=== PATIENT | male | born 1960 | race Hispanic/Latino ===

== ENCOUNTER 2016-07-27 13:20 | Inpatient (IN) | payer BC, MEDICAID ==
[2016-07-27 13:26] VITALS: BMI 22.2
[2016-07-27 15:20] LABS: ADD MANUAL DIFF? NO
[2016-07-27] MEDS ORDERED: Piperacill/Tazo 4.5gm in NS 4.5 GM/100 ML BAG IVPB STA (15:31)
--- NOTE | 2016-07-27 15:37 | ED PDOC ---
Arrival/HPI - General Chief Complaint: Abdominal Pain Time Seen by Provider: 07/27/16 14:42 Historian: Patient - History of Present Illness Narrative History of Present Illness (Text): 07/27/16 15:34 55 year old male presents with 1 day duration of right lower quadrant pain. Patient reports chills at home. No nausea or vomiting. No relieving or exacerbating factors. No other complaints. Time/Duration: 24 hours Symptom Onset: Gradual Symptom Course: Unchanged Modifying Factors (Text): None Associated Symptoms (Text): Chills Past Medical History - Provider Review Nursing Documentation Reviewed: Yes - Cardiac Hx Cardiac Disorders: Yes Hx Hypertension: Yes - Pulmonary Hx Respiratory Disorders: No - Neurological Hx Neurological Disorder: No - HEENT Hx HEENT Disorder: No - Renal Hx Renal Disorder: No - Endocrine/Metabolic Hx Endocrine Disorders: No - Hematological/Oncological Hx Blood Disorders: No - Integumentary Hx Dermatological Disorder: No - Musculoskeletal/Rheumatological Hx Musculoskeletal Disorders: No Hx Falls: No - Gastrointestinal Hx Gastrointestinal Disorders: Yes Hx Diverticulitis: Yes Other/Comment: INGUINAL HERNIA - Genitourinary/Gynecological Hx Genitourinary Disorders: No - Psychiatric Hx Psychophysiologic Disorder: Yes Hx Anxiety: Yes Hx Depression: No Hx Emotional Abuse: No Hx Physical Abuse: No Hx Substance Use: No - Surgical History Other/Comment: L INGUINAL HERNIA REPAIR as a child - Anesthesia Hx Anesthesia: Yes - Suicidal Assessment Feels Threatened In Home Enviroment: No Family/Social History - Physician Review Nursing Documentation Reviewed: Yes Family/Social History: Unknown Family HX Smoking Status: Heavy Smoker > 10 Cigarettes Daily Hx Alcohol Use: Yes Frequency of alcohol use: Daily Hx Substance Use: No Hx Substance Use Treatment: No Allergies/Home Meds Allergies/Adverse Reactions: Allergies No Known Allergies Allergy (Verified 07/27/16 13:30) Home Medications: Home Meds Medication Instructions Recorded Confirmed No Known Home Med 07/27/16 07/27/16 Review of Systems - Physician Review All systems were reviewed & negative as marked: Yes Physical Exam - Physical Exam Narrative Physical Exam (Text): - Review of Systems Constitutional: Chills absent: Fatigue, Weight Change, Fevers Eyes: Normal ENT: Normal Respiratory: Normal absent: SOB, Cough, Sputum Cardiovascular: Normal absent: Chest pain, Palpitations, Syncope Gastrointestinal: Right lower quadrant pain absent: Diarrhea, Nausea, Vomiting Genitourinary: Normal. absent: Dysuria, Frequency, Hematuria Musculoskeletal: Normal. absent: Arthralgias, Back Pain, Neck Pain Skin: Normal Neurological: Normal absent: Focal Weakness Endocrine: Normal Hemo/Lymphatic: Normal Psychiatric: Normal - Physical exam Patient appears age appropriate, speaking full sentences without difficulty - Systems Exam Head: Present: Atraumatic, Normocephalic Pupils: Present: PERRL Extraocular Muscles: Present: EOMI Conjunctiva: Present: Normal Mouth: Present: Moist Mucous Membranes Neck: Present: Normal Range of Motion. No: MIDLINE TENDERNESS, Paraspinal Tenderness Respiratory/Chest: Present: Clear to Auscultation, Good Air Exchange. No: Respiratory Distress, Accessory Muscle Use, Tachypneic Cardiovascular: Present: Regular Rate and Rhythm, Normal S1, S2, Peripheral Pulses Present. No: Murmurs Abdomen: Present: Right lower quadrant guarding, rebound tenderness, McBurney's Point Tenderness, Normal Bowel Sounds, No: Peritoneal Signs, Distention Back: Present: Normal Inspection. No: Midline Tenderness, Paraspinal Tenderness Upper Extremity: Present: Normal Inspection. No: Cyanosis, Edema Lower Extremity: Present: Normal Inspection. No: Edema Neurological: Present: GCS=15, Speech Normal, cranial nerves II through XII fully intact with no cerebellar abnormality, neuro-sensory fully intact. No focal neurological deficits. Skin: Present: Warm, Dry, Normal Color. No: Rashes Lymphatic: Present: OX3, NI, NC Psychiatric: Present: Alert, Oriented x 3, Normal Insight, Normal Concentration. Vital Signs Reviewed: Yes Vital Signs Temp Pulse Resp BP Pulse Ox 07/27/16 17:44 69 18 138/74 98 07/27/16 16:11 75 18 142/89 98 07/27/16 13:27 98.9 F 89 16 144/95 H 98 Temperature: Afebrile Blood Pressure: Normal Pulse: Regular Respiratory Rate: Normal Appearance: Positive for: Well-Appearing, Non-Toxic, Comfortable Pain Distress: None Mental Status: Positive for: Alert and Oriented X 3 Medical Decision Making ED Course and Treatment: Impression: 55 year old male presents with 1 day duration of right lower quadrant pain. On physical exam, patient has guarding in the right lower quadrant, rebound tenderness, McBurney's Point tenderness Differential Diagnosis include but are not limited to: Appendicitis vs colitis vs mesenteric adenitis vs hernia Plan: -- CT Abdomen/Pelvis -- Morphine, Zosyn -- IV fluids -- Reassess and disposition Progress Notes: 07/27/16 17:50 CT read as per radiology states cannot exclude appendicitis pt states his surgeon is Dr. Faustin case nyasia Faustin, states he will see pt and asked to call resident nyasia Chavez, states will evaluate pt Dr. Malinda foley, awaiting callback on reeval, pt's pain better after morphine 07/27/16 18:[address] Petty, agrees with admission to her service - Lab Interpretations Lab Results: 07/27/16 14:20 07/27/16 14:20 Lab Results 07/27/16 15:15: Urine Color Yellow, Urine Appearance Clear, Urine pH 6.0, Ur Specific [place] 1.020, Urine Protein Negative, Urine Glucose (UA) Negative, Urine Ketones 40 H, Urine Blood Moderate H, Urine Nitrate Negative, Urine Bilirubin Negative, Urine Urobilinogen 0.2, Ur Leukocyte Esterase Negative, Urine RBC 5 - 10, Urine WBC 0 - 2, Ur Epithelial Cells 0 - 2, Urine Bacteria Few 07/27/16 14:20: Sodium 136, Potassium 4.5, Chloride 99, Carbon Dioxide 27, Anion Gap 15, BUN 11, Creatinine 0.7, Est GFR ( Amer) > 60, Est GFR (Non- Af Amer) > 60, Random Glucose 76, Calcium 9.1, Total Bilirubin 1.2, AST 24, ALT 35, Alkaline Phosphatase 69, Total Protein 7.4, Albumin 4.0, Globulin 3.3, Albumin/Globulin Ratio 1.2, Lipase 70 07/27/16 14:20: WBC 10.4 D, RBC 4.11, Hgb 13.3 L, Hct 38.8 L, MCV 94.4, MCH 32.4, MCHC 34.3, RDW 15.3 H, Plt Count 278, MPV 9.8, Gran % 68.4 H, Lymph % ( Auto) 18.5 L, [place] % (Auto) 9.0 H, Eos % (Auto) 3.8, Baso % (Auto) 0.3, Gran # 7.10 H, Lymph # 1.9, [place] # 0.9 H, Eos # 0.4, Baso # 0.03 - RAD Interpretation Radiology Orders: 07/27/16 15:31 ABD & PELVIS IV CONTRAST ONLY [CT] Stat - Medication Orders Current Medication Orders: Sodium Chloride (Sodium Chloride 0.9%) 1,000 mls @ 100 mls/hr IV .Q10H JOSIE Last Admin: 07/27/16 16:01 Dose: 100 mls/hr Discontinued Medications Piperacillin Sod/Tazobactam Sod (Zosyn 4.5 Gm In Ns 100ml) 4.5 gm in 100 mls @ 200 mls/hr IVPB STAT STA PRN Reason: Protocol Stop: 07/27/16 16:00 Last Admin: 07/27/16 16:01 Dose: 200 mls/hr Iohexol (Omnipaque 350 100 Ml) Confirm Administered Dose 350 mg .ROUTE .STK-MED ONE Stop: 07/27/16 16:28 Morphine Sulfate (Morphine) 6 mg IVP STAT STA Stop: 07/27/16 15:32 Last Admin: 07/27/16 16:00 Dose: 6 mg - Scribe Statement The provider has reviewed the documentation as recorded by the Leonardo Goel Provider Scribe Attestation: All medical record entries made by the Leonardo were at my direction and personally dictated by me. I have reviewed the chart and agree that the record accurately reflects my personal performance of the history, physical exam, medical decision making, and the department course for this patient. I have also personally directed, reviewed, and agree with the discharge instructions and disposition. Disposition/Present on Arrival - Present on Arrival Any Indicators Present on Arrival: No History of DVT/PE: No History of Uncontrolled Diabetes: No Urinary Catheter: No History of Decub. Ulcer: No History Surgical Site Infection Following: None - Disposition Have Diagnosis and Disposition been Completed?: Yes Diagnosis: Abdominal pain Disposition: HOSPITALIZED Disposition Time: 18:17 Patient Plan: Admission Patient Problems: Current Active Problems Problem Status Onset Abdominal pain Acute Condition: FAIR Referrals: Suri Petty MD [Primary Care Provider] - Follow up with primary
[2016-07-27 15:38] LABS: URINE BILIRUBIN NEGATIVE (NEGATIVE); URINE BLOOD MODERATE (NEGATIVE); URINE GLUCOSE (UA) NEGATIVE (NEGATIVE); URINE KETONE 40 mg/dL (NEGATIVE); URINE LEUKOCYTE ESTERASE NEGATIVE Leu/uL (NEGATIVE); URINE PROTEIN NEGATIVE mg/dL (<30 mg/dL); URINE UROBILINOGEN 0.2 E.U./dL (<1 E.U./dL)
[2016-07-27 15:39] LABS: BASO # 0.03 K/mm3 (0.0-2.0); BASO % 0.3 % (0.0-3.0); EOS # 0.4 (0.0-0.7); EOS % 3.8 % (1.5-5.0); GRAN % 68.4 % (50.0-68.0); HEMATOCRIT 38.8 % (42.0-52.0); LYMPH # 1.9 (1.2-3.4); LYMPH % 18.5 % (22.0-35.0); MEAN CELL VOLUME 94.4 fL (80.0-105.0); MEAN CORPUSCULAR HEMOGLOBIN 32.4 pg (25.0-35.0); MEAN CORPUSCULAR HGB CONC 34.3 g/dl (31.0-37.0); MEAN PLATELET VOLUME 9.8 fl (7.0-11.0); MONO # 0.9 (0.1-0.6); PLATELET COUNT 278 10^3/uL (120.0-450.0); RED CELL DISTRIBUTION WIDTH 15.3 % (11.5-14.5); WHITE BLOOD COUNT 10.4 10^3/ul (4.5-11.0)
[2016-07-27 15:42] LABS: URINE COLOR YELLOW (YELLOW)
[2016-07-27] MEDS ORDERED: Sodium Chloride 0.9% 1,000 ML IV SCH (15:45)
[2016-07-27 15:47] LABS: URINE APPEARANCE CLEAR (CLEAR)
[2016-07-27 15:48] LABS: URINE BACTERIA FEW (NEG); URINE EPITHELIAL CELLS 0 - 2 /hpf (0-5); URINE WBC 0 - 2 /hpf (0-6)
[2016-07-27 15:51] LABS: ALB/GLOB RATIO 1.2 (1.1-1.8); ALKALINE PHOSPHATASE 69 U/L (38-133); ALT/SGPT 35 U/L (7-56); AST/SGOT 24 U/L (15-59); BILIRUBIN,TOTAL 1.2 mg/dL (0.2-1.3); BLOOD UREA NITROGEN 11 mg/dL (7-21); CALCIUM 9.1 mg/dL (8.4-10.5); CARBON DIOXIDE 27 mmol/L (21-33); CHLORIDE 99 mmol/L (98-107); GFR AFRICAN-AMERICAN > 60; GLUCOSE,RANDOM 76 mg/dL (70-110); LIPASE 70 U/L (23-300); POTASSIUM 4.5 mmol/L (3.6-5.0); SODIUM 136 mmol/L (132-148); TOTAL PROTEIN 7.4 g/dL (5.8-8.3)
[2016-07-27] MEDS ORDERED: Iohexol 350 MG/100 ML VIAL ONE (16:27)
--- NOTE | 2016-07-27 17:15 | CT ---
PROCEDURE: CT Abdomen and Pelvis with contrast HISTORY: RLQ pain, +McBurney's point tenderness COMPARISON: CT abdomen pelvis with contrast performed 05/01/16 TECHNIQUE: Contrast dose: 100 mL Omnipaque 350 Radiation dose: Total exam DLP = 411.40 mGy-cm. This CT exam was performed using one or more of the following dose reduction techniques: Automated exposure control, adjustment of the mA and/or kV according to patient size, and/or use of iterative reconstruction technique. FINDINGS: LOWER THORAX: No visible consolidation, pleural effusion, or pneumothorax. Small hiatal hernia/distal esophageal wall thickening. LIVER: Region of suspected focal fatty infiltration adjacent to the falciform ligament. GALLBLADDER AND BILE DUCTS: Unremarkable. PANCREAS: Unremarkable. SPLEEN: Unremarkable. ADRENALS: Unremarkable. KIDNEYS AND URETERS: At least 2 too small to characterize left renal hypodensities; possibly cysts. The kidneys enhance symmetrically. No hydronephrosis or obstructing calculus. VASCULATURE: No aortic aneurysm. BOWEL: Stomach is nondistended. Lack of oral contrast limits evaluation for bowel pathology. Bowel loops appear within normal limits of caliber without evidence of obstruction. Extensive inflammatory changes adjacent to the cecum, possibly related to infectious or inflammatory etiologies. Mural thickening of the sigmoid colon re-identified without significant interval change. Correlate clinically for infectious or inflammatory etiologies. No adjacent inflammatory changes evident. Malignant neoplasm must be excluded. Recommend correlation with colonoscopy when clinically feasible. Diverticulosis. APPENDIX: The appendix appears mildly distended measuring approximately 8 mm and contains fluid. Adjacent inflammatory changes appear centered upon the cecum and less so on the appendix. However appendicitis must be excluded. PERITONEUM: No significant free fluid. No definite free air. LYMPH NODES: No bulky adenopathy evident. BLADDER: Unremarkable. REPRODUCTIVE: Unremarkable. BONES: No acute osseous abnormality is detected. . OTHER FINDINGS: Right inguinal hernia containing fluid and fat. IMPRESSION: The appendix appears mildly distended measuring approximately 8 mm and contains fluid. Adjacent inflammatory changes appear centered upon the cecum and less so on the appendix. However acute appendicitis must be excluded. Interval development of extensive inflammatory changes adjacent to the cecum, presumably related to infectious or inflammatory etiologies. Mural thickening of the sigmoid colon re-identified without significant interval change. Correlate clinically for infectious or inflammatory etiologies. No adjacent inflammatory changes evident. Malignant neoplasm must be excluded. Recommend correlation with colonoscopy when clinically feasible. Additional incidental findings as above.
--- NOTE | 2016-07-27 18:27 | CP.PCM.CON ---
History of Present Illness - History of Present Illness History of Present Illness: Gen Surg Consult: Dr Faustin CC: RLQ pain Pt is a 55M w/ PMH of COPD, b/l inguinal hernia's (left repaired at young age, right still present), diverticulitis, and htn. Pt presented today with RLQ pain which started around 2PM. Pain has been 10/10 and relentless. It migrates to the right groin. He denies any associated N/V, fevers or chills. Last BM was this morning, no blood, normal in consistency. He supposedly had some kind of neoplasm as a child but is unaware of where or what it was. Pt reports he has not had a colonoscopy yet. PMH: HTN, COPD, diverticulitis PSH: left inguinal hernia Review of Systems - Review of Systems All systems: reviewed and no additional remarkable complaints except (as per hpi ) Past Patient History - Past Social History Smoking Status: Heavy Smoker > 10 Cigarettes Daily - CARDIAC Hx Cardiac Disorders: Yes Hx Hypertension: Yes - PULMONARY Hx Respiratory Disorders: No - NEUROLOGICAL Hx Neurological Disorder: No - HEENT Hx HEENT Problems: No - RENAL Hx Chronic Kidney Disease: No - ENDOCRINE/METABOLIC Hx Endocrine Disorders: No - HEMATOLOGICAL/ONCOLOGICAL Hx Blood Disorders: No - INTEGUMENTARY Hx Dermatological Problems: No - MUSCULOSKELETAL/RHEUMATOLOGICAL Hx Musculoskeletal Disorders: No Hx Falls: No - GASTROINTESTINAL Hx Gastrointestinal Disorders: Yes Hx Diverticulitis: Yes Other/Comment: INGUINAL HERNIA - GENITOURINARY/GYNECOLOGICAL Hx Genitourinary Disorders: No - PSYCHIATRIC Hx Psychophysiologic Disorder: Yes Hx Anxiety: Yes Hx Depression: No Hx Emotional Abuse: No Hx Physical Abuse: No Hx Substance Use: No - SURGICAL HISTORY Other/Comment: L INGUINAL HERNIA REPAIR as a child - ANESTHESIA Hx Anesthesia: Yes Meds Allergies/Adverse Reactions: Allergies Allergy/AdvReac Type Severity Reaction Status Date / Time No Known Allergies Allergy Verified 07/27/16 13:30 - Medications Medications: Current Medications Sodium Chloride (Sodium Chloride 0.9%) 1,000 mls @ 100 mls/hr IV .Q10H JOSIE Last Admin: 07/27/16 16:01 Dose: 100 mls/hr Physical Exam - Constitutional Appears: Non-toxic, No Acute Distress - Head Exam Head Exam: NORMOCEPHALIC - Eye Exam Eye Exam: Normal appearance - Respiratory Exam Respiratory Exam: absent: Accessory Muscle Use, Respiratory Distress - GI/Abdominal Exam GI & Abdominal Exam: Hernia (right inguinal - not currently reducible due to tenderness), Soft, Tenderness (RLQ as well as tender right inguinal hernia). absent: Distended, Firm, Rebound, Rigid Additional comments: - psoas - rovsings - Rectal Exam Rectal Exam: absent: Deferred - Extremities Exam Extremities exam: Negative for: pedal edema - Neurological Exam Neurological exam: Alert, Oriented x3 - Psychiatric Exam Psychiatric exam: Normal Affect, Normal Mood - Skin Skin Exam: Normal Color, Warm Results - Vital Signs Recent Vital Signs: Last Vital Signs Temp 98.9 F 07/27/16 13:27 Pulse 69 07/27/16 17:44 Resp 18 07/27/16 17:44 BP 138/74 07/27/16 17:44 Pulse Ox 98 07/27/16 17:44 - Labs Result Diagrams: 07/27/16 14:20 07/27/16 14:20 Labs: Laboratory Results - last 24 hr 07/27/16 07/27/16 07/27/16 14:20 14:20 15:15 WBC 10.4 D RBC 4.11 Hgb 13.3 L Hct 38.8 L MCV 94.4 MCH 32.4 MCHC 34.3 RDW 15.3 H Plt Count 278 MPV 9.8 Gran % 68.4 H Lymph % (Auto) 18.5 L [place] % (Auto) 9.0 H Eos % (Auto) 3.8 Baso % (Auto) 0.3 Gran # 7.10 H Lymph # 1.9 [place] # 0.9 H Eos # 0.4 Baso # 0.03 Sodium 136 Potassium 4.5 Chloride 99 Carbon Dioxide 27 Anion Gap 15 BUN 11 Creatinine 0.7 Est GFR ( Amer) > 60 Est GFR (Non-Af Amer) > 60 Random Glucose 76 Calcium 9.1 Total Bilirubin 1.2 AST 24 ALT 35 Alkaline Phosphatase 69 Total Protein 7.4 Albumin 4.0 Globulin 3.3 Albumin/Globulin Ratio 1.2 Lipase 70 Urine Color Yellow Urine Appearance Clear Urine pH 6.0 Ur Specific [place] 1.020 Urine Protein Negative Urine Glucose (UA) Negative Urine Ketones 40 H Urine Blood Moderate H Urine Nitrate Negative Urine Bilirubin Negative Urine Urobilinogen 0.2 Ur Leukocyte Esterase Negative Urine RBC 5 - 10 Urine WBC 0 - 2 Ur Epithelial Cells 0 - 2 Urine Bacteria Few Assessment & Plan - Assessment and Plan (Free Text) Assessment: 55M with right inguinal hernia and appendicitis Plan: IV fluids analgesia anti-emetics abx plan for OR tomorrow early AM d/w Dr Ramin Munoz DO, PGY2 - Date & Time Date: 07/27/16 Time: 18:35
[2016-07-27] MEDS: Lactated Ringer's 1,000 ML IV SCH (18:40)
[2016-07-27] MEDS ORDERED: Ciprofloxacin 400mg/200ml D5W 400 MG/200 ML BAG IVPB SCH (19:00)
[2016-07-27] MEDS: Ciprofloxacin 400mg/200ml D5W 400 MG/200 ML BAG IVPB SCH (19:40)
[2016-07-27] MEDS: HYDROmorphone 0.5 mg/0.5 ml ISec IVP PRN ×2 (20:21→23:21)
[2016-07-27 21:18] LABS: INR 1.03 (0.93-1.08); PARTIAL THROMBOPLASTIN TIME 34.1 Seconds (23.7-30.8)
[2016-07-27] MEDS: metroNIDAZOLE IV 500 mg/100 ml 500 MG/100 ML BAG IV SCH (22:08)
[2016-07-28] MEDS: metroNIDAZOLE IV 500 mg/100 ml 500 MG/100 ML BAG IV SCH (05:51)
[2016-07-28] MEDS: HYDROmorphone 0.5 mg/0.5 ml ISec IVP PRN ×2 (06:09→19:55)
[2016-07-28 07:05] LABS: ADD MANUAL DIFF? NO
[2016-07-28 07:17] LABS: BASO # 0.04 K/mm3 (0.0-2.0); BASO % 0.5 % (0.0-3.0); EOS # 0.5 (0.0-0.7); EOS % 5.9 % (1.5-5.0); GRAN # 5.34 (1.4-6.5); GRAN % 66.6 % (50.0-68.0); HEMATOCRIT 37.3 % (42.0-52.0); LYMPH # 1.6 (1.2-3.4); LYMPH % 19.4 % (22.0-35.0); MEAN CELL VOLUME 94.7 fL (80.0-105.0); MEAN CORPUSCULAR HEMOGLOBIN 31.7 pg (25.0-35.0); MEAN CORPUSCULAR HGB CONC 33.5 g/dl (31.0-37.0); MEAN PLATELET VOLUME 9.2 fl (7.0-11.0); MONO # 0.6 (0.1-0.6); MONO % 7.6 % (1.0-6.0); PLATELET COUNT 259 10^3/uL (120.0-450.0); RED CELL DISTRIBUTION WIDTH 15.1 % (11.5-14.5)
[2016-07-28 07:19] LABS: ALB/GLOB RATIO 1.3 (1.1-1.8); ALKALINE PHOSPHATASE 62 U/L (38-133); ALT/SGPT 35 U/L (7-56); AST/SGOT 22 U/L (15-59); BILIRUBIN,TOTAL 0.7 mg/dL (0.2-1.3); BLOOD UREA NITROGEN 10 mg/dL (7-21); CALCIUM 8.5 mg/dL (8.4-10.5); CARBON DIOXIDE 24 mmol/L (21-33); CHLORIDE 104 mmol/L (95-110); GFR AFRICAN-AMERICAN > 60; GLUCOSE,RANDOM 63 mg/dL (70-110); POTASSIUM 3.9 mmol/L (3.6-5.0); SODIUM 139 mmol/L (132-148); TOTAL PROTEIN 6.3 g/dL (5.8-8.3)
[2016-07-28] MEDS: Ciprofloxacin 400mg/200ml D5W 400 MG/200 ML BAG IVPB SCH (08:07)
[2016-07-28] MEDS: Lactated Ringer's 1,000 ML IV SCH ×2 (08:08→13:08)
--- NOTE | 2016-07-28 08:48 | RAD ---
HISTORY: pre-op COMPARISON: 05/01/2016 FINDINGS: LUNGS: No active pulmonary disease. PLEURA: No significant pleural effusion identified, no pneumothorax apparent. CARDIOVASCULAR: Normal. OSSEOUS STRUCTURES: No significant abnormalities. VISUALIZED UPPER ABDOMEN: Normal. OTHER FINDINGS: None. IMPRESSION: No active disease.
[2016-07-28] MEDS ORDERED: Bupivacaine 0.5% Inj(30mL) ONE (08:53)
[2016-07-28] MEDS ORDERED: Midazolam 2 MG/2 ML VIAL ONE (11:30)
[2016-07-28] MEDS ORDERED: Succinylcholine 200 mg/10 ml Inj IV ONE (11:30)
[2016-07-28] MEDS ORDERED: Propofol 10 mg/ml Inj (20 ML) ONE ×2 (11:30→11:44)
[2016-07-28] MEDS ORDERED: Rocuronium 10 mg/ml (5 ml) ONE (11:30)
[2016-07-28] MEDS ORDERED: Desflurane Inhalation Anesthetic Liq (240 ml) ONE (11:50)
[2016-07-28] MEDS ORDERED: Glycopyrrolate 0.2 mg/ml (2ml vial) ONE (12:33)
[2016-07-28] MEDS ORDERED: Morphine 4 mg/ml ISec ONE (12:36)
[2016-07-28] MEDS ORDERED: Neostigmine Methylsulfate 3mg/3ml Syringe IV ONE (12:36)
[2016-07-28] MEDS ORDERED: HYDROmorphone 0.5 mg/0.5 ml ISec IVP PRN (12:53)
[2016-07-28] MEDS ORDERED: HYDROmorphone 0.5 mg/0.5 ml ISec ONE ×3 (13:07→13:49)
[2016-07-28] MEDS ORDERED: Morphine 4 mg/ml ISec IVP PRN (13:11)
[2016-07-28] MEDS ORDERED: Oxycodone/Acetaminophen 5/325 mg Tab PO PRN (13:11)
--- NOTE | 2016-07-28 13:12 | PCM.SURG1 ---
Surgeon's Initial Post Op Note - Surgeon's Notes Surgeon: Dr. Faustin Food Preservation Scientist: Dr. Li PGY3, Dr. Nash PGY2, Dr. Chavez PGY1 Type of Anesthesia: General Endo Pre-Operative Diagnosis: appendicitis Operative Findings: see dictation Post-Operative Diagnosis: enlarged appendix Operation Performed: laparoscopic appendectomy Specimen/Specimens Removed: appendix Estimated Blood Loss: EBL {In ML}: 10 Post-Op Condition: Good Date of Surgery/Procedure: 07/28/16 Time of Surgery/Procedure: 11:30
--- NOTE | 2016-07-28 17:31 | CON ---
DATE: 07/28/2016 The patient in room 368, bed 1. REASON FOR CONSULTATION: Abdominal pain, possible appendicitis, needs surgery, cardiac evaluation. HISTORY OF PRESENT ILLNESS: A 55-year-old male who is known to have Hypertension and inguinal hernia had a sudden onset of pain in the right lower quadrant with chills at home for about one day duration. The patient denies any chest pain, shortness of breath, or palpitation. The patient clinical diagnosis is appendicitis and the patient underwent surgery this morning. The patient denies any chest pain, shortness of breath, or palpitation. The patient is lying flat in bed without any cardiac symptoms. PAST MEDICAL HISTORY: Positive for inguinal hernia, was told to have Hypertension. PERSONAL HISTORY: He smokes 1 pack a day and drinks beer. FAMILY HISTORY: Not significant. HOME MEDICATIONS: He says that he does not take any medication at present. REVIEW OF SYSTEMS: All the systems were reviewed, only positives mentioned in the history, others were negative. PHYSICAL EXAMINATION: VITAL SIGNS: Blood pressure 128/74, respirations 18, pulse 70, temperature 97.9. HEENT: Head is normocephalic. Eyes: Pupils normal. Conjunctivae are slightly pale. NECK: JVP low. Carotids equal. THORAX: AP diameter normal. The patient had appendectomy this morning. LUNGS: Clear. CARDIOVASCULAR: S1, S2. ABDOMEN: Soft. As mentioned before, the patient had appendectomy this morning. EXTREMITIES: No clubbing, no cyanosis. LABORATORY DATA: WBC 8.0, hemoglobin 12.5, hematocrit 37.3, platelets 259. Sodium 139, potassium 3.9, BUN 15, creatinine 0.7. AST, ALT normal. Total protein and albumin normal. Chest x-ray, no active disease. Abdominal and pelvic scan suggestive of acute appendicitis, also mural thickening of the sigmoid colon with significant interval change from the previous, and a malignant neoplasm must be excluded on these changes. EKG has not been done. CARDIAC WORKUP: The patient had a stress test on 05/05/2016, which was negative with LV ejection fraction of 68%. Echo was done on 05/02/2016 that showed normal systolic function of LV, normal size LV, ejection fraction 55%-60%, trace aortic regurgitation, trace to mild mitral regurg. DIAGNOSES: Abdominal pain, appendicitis, status post appendectomy, history of Hypertension alcohol and tobacco abuse. PLAN: Clinically, the patient's cardiac status is stable at this point. The patient has been put on lisinopril 20 mg b.i.d., also Zosyn antibiotic 4.5 grams stat dose was given. The patient is getting IV fluid. Told patient to stop smoking and drinking Beer. We will continue present therapy and we will follow with you. Emory Chau MD cc: [id number] TT: 07/28/2016 17:30:37 Confirmation # [id number] Dictation # [id number] zoran KNIGHT
--- NOTE | 2016-07-28 19:47 | HP ---
CHIEF COMPLAINT: Abdominal pain. HISTORY OF PRESENT ILLNESS: The patient is a 55-year-old male, well known to me from previous admissions, had 1 day duration of right lower quadrant abdominal pain. The patient actually went to Dr. Medina's office for GI followup. Dr. Medina called me and sent the patient to the Emergency Room. The patient reports chills at home. No nausea or vomiting. No alleviating or aggravating factors and no other complaints. No headache, no dizziness. PAST MEDICAL HISTORY: Hypertension, diverticulitis, anxiety, left inguinal hernia repair as a child. FAMILY HISTORY: Father and mother noncontributory. HABITS: Heavy smoking, more than 10 cigarettes a day. Alcohol use yes, alcohol use daily. Substance abuse no. ALLERGIES: The patient is not allergic to any medications. HOME MEDICATIONS: Reviewed by me. REVIEW OF SYSTEMS: The patient is examined on the bedside. Sister was standing at the bedside also. Complaining about pain in the right lower quadrant, is intractable. According to him morphine was giving him itchiness. I ordered Dilaudid. No fever, no chills. No headache, no dizziness. PHYSICAL EXAMINATION: VITAL SIGNS: Temperature 97.9, pulse 72, blood pressure 134/91, respiratory rate 18. HEENT: Head normocephalic, atraumatic. Eyes: PERRLA. Extraocular muscles intact. Conjunctivae clear. Nose patent. Mucous membranes moist. NECK: Supple. No carotid bruit, JVD or thyromegaly. CHEST: Bilaterally symmetrical. HEART: S1, S2 positive. LUNGS: Clear to auscultation. ABDOMEN: Soft. Bowel sounds positive. No organomegaly but the stomach is tender, especially in the right lower quadrant. EXTREMITIES: No edema, no cyanosis. NEUROLOGIC: Awake, alert. Moving all 4 extremities. No focal deficits. LABORATORY DATA: White blood cells noted , hemoglobin 12.5, hematocrit 37.3, and platelets 259. Sodium 139, potassium 3.9, BUN 10, creatinine 0.7, random glucose 63. Urine has ketones and moderate blood. ASSESSMENT AND PLAN: The patient is a 55-year-old male with ketonuria, hematuria, anemia, who came with abdominal pain. CAT scan of the abdomen and pelvis were done. Appendix appears mildly distended measuring approximately 8 mm. Diagnosis of appendicitis. Surgical consult called. The patient went for appendectomy today. He met with Dr. Chau, Super[employer], for cardiac clearance. He has a history of hypertension, alcohol and tobacco abuse. The patient is getting morphine for pain. According to him the morphine is giving him itchiness. Now I discontinued the morphine and started on Dilaudid. GI prophylaxis, continue hydration and pain management. Surgical team is on the case. Will followup. Suri Petty MD cc: [id number] TT: 07/28/2016 19:47:03 franky KNIGHT
[2016-07-29] MEDS: HYDROmorphone 0.5 mg/0.5 ml ISec IVP PRN (04:46)
[2016-07-29 05:09] LABS: URINE BILIRUBIN NEGATIVE (NEGATIVE); URINE BLOOD SMALL (NEGATIVE); URINE GLUCOSE (UA) NEGATIVE (NEGATIVE); URINE KETONE >=80 mg/dL (NEGATIVE); URINE LEUKOCYTE ESTERASE NEGATIVE Leu/uL (NEGATIVE); URINE PROTEIN NEGATIVE mg/dL (<30 mg/dL); URINE UROBILINOGEN 0.2 E.U./dL (<1 E.U./dL)
[2016-07-29 05:14] LABS: URINE APPEARANCE CLEAR (CLEAR); URINE COLOR YELLOW (YELLOW)
[2016-07-29 05:27] LABS: URINE BACTERIA MOD (NEG); URINE EPITHELIAL CELLS 0 - 2 /hpf (0-5)
--- NOTE | 2016-07-29 08:48 | CP.PCM.PN ---
Subjective - Date & Time of Evaluation Date of Evaluation: 07/29/16 Time of Evaluation: 07:15 - Subjective Subjective: General Surgery Dr. Faustin Pt S&E @bedside. pt had lap appy yesterday. there were no complications and pt tolerated the procedure well. NAEO. pt c/o abd pain from his hernia which began after coughing. pt states his intestines are twisted in his abd because his hernia was reduced. denies N/V. tolerating CLD. Objective - Vital Signs/Intake and Output Vital Signs (last 24 hours): Temp Pulse Resp BP Pulse Ox 97.9 F 72 20 134/91 H 98 07/28/16 16:00 07/28/16 17:13 07/28/16 16:00 07/28/16 17:13 07/28/16 16:00 Intake and Output: 07/29/16 07/29/16 06:59 18:59 Intake Total 660 Output Total 600 Balance 60 - Medications Medications: Current Medications Hydromorphone HCl (Dilaudid) 0.5 mg IVP Q6H PRN PRN Reason: Pain, severe (8-10) Last Admin: 07/29/16 04:46 Dose: 0.5 mg Lactated Ringer's (Lactated Ringer's) 1,000 mls @ 125 mls/hr IV .Q8H [facility] Last Admin: 07/28/16 13:08 Dose: Not Given Lisinopril (Zestril) 20 mg PO BID [facility] Last Admin: 07/28/16 17:13 Dose: 20 mg Ondansetron HCl (Zofran Inj) 4 mg IVP ONCE PRN PRN Reason: Nausea/Vomiting Oxycodone/Acetaminophen (Percocet 5/325 Mg Tab) 1 tab PO Q4H PRN PRN Reason: Pain, moderate (4-7) Stop: 07/31/16 13:12 - Labs Labs: 07/28/16 06:45 07/28/16 06:45 PT 11.1 Seconds (9.9-11.8) 07/27/16 21:05 INR 1.03 (0.93-1.08) 07/27/16 21:05 APTT 34.1 Seconds (23.7-30.8) H 07/27/16 21:05 - Constitutional Appears: Non-toxic, No Acute Distress - Head Exam Head Exam: NORMAL INSPECTION - Eye Exam Eye Exam: Normal appearance - ENT Exam ENT Exam: Mucous Membranes Moist - Respiratory Exam Respiratory Exam: NORMAL BREATHING PATTERN. absent: Accessory Muscle Use, Respiratory Distress - Cardiovascular Exam Cardiovascular Exam: absent: Bradycardia, Tachycardia - GI/Abdominal Exam GI & Abdominal Exam: Distended (minimal ), Guarding (voluntary), Soft, Tenderness (TTP RLQ). absent: Rebound Additional comments: incisions well approximated, c/d/i - Neurological Exam Neurological Exam: Alert, Awake, Oriented x3 - Psychiatric Exam Psychiatric exam: Normal Affect, Normal Mood - Skin Skin Exam: Dry, Intact, Normal Color, Warm Assessment and Plan - Assessment and Plan (Free Text) Assessment: 55 y/o M POD#1 s/p lap appy - advance diet as tolerated - pain management - cleared for discharge pending diet tolerance w/ f/u in 1-2wks - july shower Pt discussed w/ Dr. Ramin Chavez DO PGY1
--- NOTE | 2016-07-29 09:12 | CON ---
DATE: 07/28/2016 This patient was seen and evaluated earlier today. Discussed with Dr. Faustin. The patient was scheduled for the OR. This 55-year-old patient was hospitalized in the past with acute diverticulitis and also inguinal hernia, symptomatic, discharged to go home, had a followup colonoscopy done recently about 3 weeks ago, found to have large polypoid lesions in the left colon with multiple diverticula ____. These are the large flat polyps within the folds. Biopsies revealed serrated adenoma. The patient was advised at that time to see a surgeon for left colon resection. The patient was seen in the office yesterday with complaints of off and on abdominal pain, mainly on the right side. Acute onset started the previous night. Pain was progressively increasing. The patient was earlier seen in the office, found to have significant tenderness in the right lower quadrant area, suspect include possible appendicitis. The patient was referred to the Emergency Room. The patient was sent to the ER. The patient had significant tenderness, sent to the ER. No history of similar episode of pain before. PAST MEDICAL HISTORY: Significant for ____ symptoms, ____ anxiety, hypertension , left inguinal hernia repair. FAMILY HISTORY: Noncontributory. SOCIAL HISTORY: Positive for smoking. No alcohol socially. ALLERGIES: There are no known drug allergies. REVIEW OF SYSTEMS: Positive as above. Other systems reviewed. Negative PHYSICAL EXAMINATION: GENERAL: The patient is lying on the bed, not in acute distress. VITAL SIGNS: Afebrile. Blood pressure is 128/74, pulse 70, respirations 18, O2 saturation 98%. HEENT: Atraumatic, anicteric. NECK: Supple. HEART: S1, S2 heard. LUNGS: Bilateral air entry present. ABDOMEN: Soft. There was tenderness present in the right lower quadrant area. No rebound or guarding. EXTREMITIES: No cyanosis, no clubbing. NEUROLOGIC: Alert, oriented. Moves all the extremities. LABORATORY DATA: 12.5, hematocrit 37.3, WBC 6.0, platelets 259. Chemistry is essentially unremarkable. IMPRESSION/PLAN: This 55-year-old patient had a history of diverticulitis before, had a recent colonoscopy that showed large polypoid lesions in the left colon, sigmoid. The patient was suspected of serrated adenoma. Biopsies were serrated adenoma, due to have surgery done, admitted now with right lower quadrant pain. Differential diagnosis should include diverticulitis, colitis. Laboratory data, CT scan was reviewed and discussed with Dr. Faustin. Impression is ____, rule out appendicitis, diverticulosis, large polypoid lesions. The patient would benefit from laparoscopic evaluation and also possible appendectomy. The patient would electively need a left colon resection. This was discussed with the patient. Thank you very much for allowing us to participate in the care of the patient. Arminda Medina MD cc: [id number] TT: 07/29/2016 09:11:51 Confirmation # [id number] Dictation # [id number] david KNIGHT
--- NOTE | 2016-07-29 09:57 | CARD ---
APPROVED REPORT EKG Measurement Heart [id number] <Conclusion> Normal sinus rhythm Moderate voltage criteria for LVH, may be normal variant No change
[2016-07-29] MEDS ORDERED: HYDROmorphone 0.5 mg/0.5 ml ISec IVP PRN (15:19)
--- NOTE | 2016-07-29 16:42 | PN ---
DATE: 07/29/2016 SUBJECTIVE: The patient was seen and examined on the bedside, still complaining about abdominal pain. As per patient, he felt gas, but no bowel movement, walked, did physical therapy, sister was sitting on the bedside. No nausea, vomiting. No chest pain, no palpitation, no fever, no chills, no headache, no dizziness. PHYSICAL EXAMINATION: VITAL SIGNS: Temperature 97.9, pulse 72, blood pressure 134/91, respiratory rate 20. HEENT: Head normocephalic, atraumatic. Eyes: PERRLA. Extraocular movements intact. Conjunctivae clear. Nose patent. NECK: Supple. No carotid bruit, JVD or thyromegaly. CHEST: Symmetrical. HEART: S1, S2 positive. LUNGS: Clear to auscultation. ABDOMEN: Soft. Bowel sounds present. No organomegaly, but tender at surgical site. Surgical site looks healthy, but tender to touch. EXTREMITIES: No edema, no cyanosis. NEUROLOGIC: The patient is awake, alert, follows simple commands. MEDICATIONS: Dilaudid, lactate ringer, Percocet, Zestril, Zofran. LABORATORY DATA: White blood cells 8.0, hemoglobin 12.5, hematocrit 37.3, and platelets 259. potassium 3.9, BUN 10, creatinine 0.7, random glucose 53. ASSESSMENT AND PLAN: The patient is a 55-year-old male with anemia, hematuria. Went for cholecystectomy by Dr. Eyad Faustin, postoperative day #2. The patient tolerated procedure very well. Abdominal pain from his hernia which began after coughing is still there. The patient states his intestines are twisted in the abdomen because his hernia was reduced. Denies any nausea, vomiting. Tolerating a clear liquid very well. Advance diet as tolerated. Pain management. Physical therapy. Gastrointestinal and deep venous thrombosis prophylaxis. We will follow up. Suri Petty MD cc: [id number] TT: 07/29/2016 16:41:12 Confirmation # [id number] Dictation # [id number] jn MTDD
[2016-07-29] MEDS: Tiotropium 18 mcg Cap For Inhalation IH SCH (18:27)
--- NOTE | 2016-07-29 19:43 | CON ---
DATE: 07/29/2016 REFERRING PHYSICIAN: Dr. Petty. REASON FOR CONSULT: Chronic obstructive lung disease, may have sleep apnea syndrome, status post tammy endectomy. HISTORY OF PRESENT ILLNESS: This is a 55-year-old gentleman with past medical history significant fo r chronic obstructive lung disease, active smoker, diverticulitis, had a colonoscopy done as an outpa tient and found to have adenoma and diverticulitis. Seen by Dr. Medina in the office and found to have a new issue with right lower quadrant pain, was admitted to Emergency Room, underwent appendecto my. Presently sitting in the bed. Family is at bedside. Has a cough, shortness of breath. No naus ea, no vomiting. Abdominal pain is there. No leg pain or leg swelling. PAST MEDICAL HISTORY: Chronic obstructive lung disease, may have obstructive sleep apnea syndrome, h ypertension, diverticulitis, has polyps with adenoma in the sigmoid colon, inguinal hernia. ALLERGIES: None known. SOCIAL HISTORY: Active smoker, history of alcohol use. FAMILY HISTORY: No significant cardiopulmonary disease reported. MEDICATIONS: He is on Dilaudid 0.25 mg q. 6 hours, lactated Ringer is 125 mL per hour, Percocet 5/32 5 one tab q. 4 hours p.r.n., Zestril 20 mg daily, Zofran on a p.r.n. basis. REVIEW OF SYSTEMS: No headache, no rhinitis. Admits to having cough and shortness of breath, wheezi ng. loud snoring, daytime sleepy and tired. No nausea. Mild abdominal pain. No dysuria. No leg pa in or leg swelling. PHYSICAL EXAMINATION: GENERAL: Sitting at the side of the bed with cough and shortness of breath. VITAL SIGNS: Temp is 98, heart rate is 72, respiratory rate is 20, blood pressure 134/91, and pulse ox 98% on room air. HEENT: Moist mucous membrane. Crowded airway. NECK: Supple, no JVD. LUNGS: Has a prolonged expiratory phase with diffuse wheezing. HEART: S1 and S2. ABDOMEN: Soft, nontender. No organomegaly. EXTREMITIES: There is no edema. NEUROLOGIC: Awake, alert, follows simple commands. LABORATORY DATA: Shows hemoglobin 12.5, hematocrit 37.3, WBC 8.0, platelet is 259. INR is 1.03, PTT is 34. Sodium , potassium 3.9, chloride 104, bicarbonate 24, BUN 10, creatinine 0.7, glucose 6 3, calcium 8.5, total bilirubin 0.7, AST 22, ALT 35, alkaline phosphatase is 62, albumin is 3.6. Had a chest x-ray done on admission, shows no active pulmonary disease. Had a CAT scan of the chest don e on admission, shows appendix was distended at that time, approximately 8 mm in size containing flui d with extensive inflammatory changes adjacent to the cecum, presumably it is related to an infectiou s or inflammatory etiology, mural thickening of the sigmoid colon without significant interval changes. IMPRESSION AND PLAN: Appendicitis, status post appendectomy, has chronic obstructive lung disease, m ay have obstructive sleep apnea syndrome, active smoker, had a colonoscopy which shows large polypoid lesion in the left colon suggestive of, I think it was serrated adenoma. I had a long discussion wi th the patient and family at bedside. We will add p.o. and inhaled bronchodilator. We will give Mao oderm patch. Urge him to stop smoking. Attended sleep study as outpatient. It will be scheduled as an outpatient with left hemicolectomy. Gastric prophylaxis, deep venous thrombosis prophylaxis. Thank you and will follow with you. Emory Navarro MD cc: [id number] TT: 07/29/2016 19:43:00 Confirmation # [id number] Dictation # [id number] zoran
[2016-07-29] MEDS: Arformoterol 15 mcg/2 ml Inh Sol IH SCH (20:11)
[2016-07-29] MEDS: Budesonide 0.5 mg/2 ml Inhal Susp UD IH SCH (20:11)
--- NOTE | 2016-07-29 23:58 | PN ---
DATE: 07/29/2016 SUBJECTIVE: This patient was seen and evaluated earlier. The patient is postop status post appendic ectomy. PHYSICAL EXAMINATION: VITAL SIGNS: Temperature is 97.9, pulse is 70, blood pressure /91. HEENT: Atraumatic, anicteric. NECK: Supple. HEART: S1, S2 heard. LUNGS: Bilateral air entry present. ABDOMEN: Soft. There is mild tenderness present in the surgical site. There is no tenderness in th e left side of the abdomen. No bowel movements. IMPRESSION: 1. Status post appendicectomy. 2. History of inguinal hernia. 3. The patient has a large polypoid lesions and extensive diverticulosis in the left side of the col on. Pathology of the left colonic lesions reported as a serrated adenoma. RECOMMENDATIONS: 1. The patient was advised to take a low residue diet with stool softeners. 2. sigmoid colon resection for these polypoid lesions. 3. Followup of the pathology report. Surgical followup. Thank you very much for allowing us to participate in the care of the patient. I did discuss with e patient and also the patient's who was at bedside. Arminda Medina MD cc: [id number] TT: 07/29/2016 23:58:02 Confirmation # [id number] Dictation # [id number] vandana
[2016-07-30] MEDS: Budesonide 0.5 mg/2 ml Inhal Susp UD IH SCH (07:57)
[2016-07-30] MEDS: Arformoterol 15 mcg/2 ml Inh Sol IH SCH (07:57)
[2016-07-30 08:56] VITALS: RESP 18; TEMP 97.7; O2SAT 96
--- NOTE | 2016-07-30 09:31 | CP.PCM.PN ---
Subjective - Date & Time of Evaluation Date of Evaluation: 07/30/16 Time of Evaluation: 07:00 - Subjective Subjective: Surgery: Dr. Faustin Pt seen and examined. No acute events overnight. Pt states he feels well, pain is well controlled and he is tolerating a regular diet. Denies N/V, F/C. Objective - Vital Signs/Intake and Output Vital Signs (last 24 hours): Temp Pulse Resp BP Pulse Ox 97.7 F 76 18 134/91 H 96 07/30/16 06:00 07/30/16 06:00 07/30/16 06:00 07/28/16 17:13 07/30/16 06:00 Intake and Output: 07/30/16 07/30/16 06:59 18:59 Intake Total 540 Output Total 600 Balance -60 - Medications Medications: Current Medications Arformoterol Tartrate (Brovana) 15 mcg IH [id number] [facility] Last Admin: 07/30/16 07:57 Dose: 15 mcg Budesonide (Pulmicort Respules) 0.5 mg IH [id number] [facility] Last Admin: 07/30/16 07:57 Dose: 0.5 mg Doxycycline Hyclate (Doryx) 100 mg PO Q12 [facility] PRN Reason: Protocol Last Admin: 07/29/16 21:28 Dose: 100 mg Famotidine (Pepcid) 40 mg PO HS [facility] Last Admin: 07/29/16 21:28 Dose: 40 mg Hydromorphone HCl (Dilaudid) 0.25 mg IVP Q6H PRN PRN Reason: Pain, severe (8-10) Lisinopril (Zestril) 20 mg PO BID [facility] Last Admin: 07/29/16 17:21 Dose: 20 mg Nicotine (Nicoderm Cq) 1 patch TD DAILY [facility] Last Admin: 07/29/16 18:27 Dose: 1 patch Ondansetron HCl (Zofran Inj) 4 mg IVP ONCE PRN PRN Reason: Nausea/Vomiting Oxycodone/Acetaminophen (Percocet 5/325 Mg Tab) 1 tab PO Q4H PRN PRN Reason: Pain, moderate (4-7) Stop: 07/31/16 13:12 Prednisone (Prednisone Tab) 40 mg PO DAILY [facility] Last Admin: 07/29/16 18:27 Dose: 40 mg Roflumilast (Daliresp) 500 mcg PO DAILY [facility] Tiotropium [place] (Spiriva) 18 mcg IH DAILY [facility] Last Admin: 07/29/16 18:27 Dose: 18 mcg - Labs Labs: 07/28/16 06:45 07/28/16 06:45 PT 11.1 Seconds (9.9-11.8) 07/27/16 21:05 INR 1.03 (0.93-1.08) 07/27/16 21:05 APTT 34.1 Seconds (23.7-30.8) H 07/27/16 21:05 - Constitutional Appears: Well, No Acute Distress - Head Exam Head Exam: ATRAUMATIC, NORMOCEPHALIC - Eye Exam Eye Exam: Normal appearance - ENT Exam ENT Exam: Mucous Membranes Moist - Respiratory Exam Respiratory Exam: NORMAL BREATHING PATTERN - Cardiovascular Exam Cardiovascular Exam: RRR - GI/Abdominal Exam GI & Abdominal Exam: Soft. absent: Guarding, Tenderness, Rebound - Extremities Exam Extremities Exam: absent: Tenderness - Neurological Exam Neurological Exam: Alert, Awake, Oriented x3 - Skin Skin Exam: Dry, Intact, Warm Assessment and Plan - Assessment and Plan (Free Text) Assessment: 55M s/p lap appendectomy; POD#2 Plan: - Ok to DC home - f/u with Dr. Faustin in 1 week - d/w Dr. Ramin Nash, PGY-2 Surgery
[2016-07-30] MEDS: Tiotropium 18 mcg Cap For Inhalation IH SCH (09:40)
[2016-07-30 10:56] VITALS: BP 169/100; PULSE 64
--- NOTE | 2016-08-14 07:58 | DS ---
CHIEF COMPLAINT: Abdominal pain. HISTORY OF PRESENT ILLNESS: The patient is a 55-year-old male with past medical history of hypertension, diverticulitis, anxiety, left inguinal hernia repair as a child. Came to [facility] Emergency Room with abdominal pain of 1 day duration in the right lower quadrant. The patient was actually seen by Dr. Medina in the office for GI followup. Dr. Medina called me and sent the patient to Emergency Room. The patient reports chills at home. No nausea, vomiting, diarrhea. We admitted the patient. CAT scan of abdomen and pelvis done. The patient went for surgery, appendectomy by Dr. Eyad Faustin. Seen by Dr. Medina also. Seen by Dr. Chau for cardiac clearance. Seen by Dr. Navarro for pulmonary clearance. Discharged home with followup with primary care physician and surgeon. PAST MEDICAL HISTORY: Hypertension, diverticulitis, anxiety, left inguinal hernia repair as a child. FAMILY HISTORY: Father and mother noncontributory. SOCIAL HISTORY: Heavy smoking, more than 10 cigarettes per day. Alcohol use yes, using alcohol every day. Substance abuse no. ALLERGIES: The patient is not allergic with any medications. HOME MEDICATIONS: Reviewed by me. REVIEW OF SYSTEMS: The patient seen and examined on the bedside, looks comfortable. No nausea, vomiting, diarrhea. No hematuria, no hematochezia. Abdominal pain is getting better. Tolerated food. Cleared by the surgeon for discharge. PHYSICAL EXAMINATION: VITAL SIGNS: Temperature 97.7, pulse 64, blood pressure 120/100, respiratory rate 18. HEENT: Head normocephalic, atraumatic. Eyes: PERRLA. Extraocular muscles intact. Conjunctivae clear. Nose patent. Mucous membranes moist. NECK: Supple. No carotid bruit, no JVD, no thyromegaly. CHEST: Bilaterally symmetrical. HEART: S1, S2 positive. LUNGS: Clear to auscultation. ABDOMEN: Soft, tender on palpation. EXTREMITIES: No edema, no cyanosis. NEUROLOGIC: The patient is awake, alert, moving all 4 extremities. No focal deficits. LABORATORIES: White blood cells noted , hemoglobin 12.5, hematocrit 37.3, platelets 259. Sodium 139, potassium 3.9, BUN 10, creatinine 0.7, glucose 63. ASSESSMENT AND PLAN: The patient is a 55-year-old male with anemia, ketonuria, hematuria. Came with abdominal pain. Went for cholecystectomy by Dr. Eyad Faustin. The patient tolerated the procedure very well. Still has abdominal pain from his hernia. Denies nausea, vomiting. Tolerating food. Pain management. Gastrointestinal and deep venous thrombosis prophylaxis. Seen by Dr. Eyad Faustin, Dr. Medina. Will follow up as outpatient. Suri Petty MD cc: [id number] TT: 08/14/2016 07:57:29 en MTDD
--- NOTE | 2016-10-12 09:00 | OP ---
Dr. Eyad Faustin dictating an Operative Report on Hayder Lindquist Date of surgery: 07/28/16 Preoperative diagnosis Appendicitis Postoperative diagnosis Enlarged appendix Procedures Laproscopic Appendectomy In the operating room the patient was identified before the procedure laterally. I marked his wristband to hayder my consent. An umbilical incision was made using the Veress needle followed by the Visiport. The abdomen was then explored, there was a mild acute appendicitis. A suprapubic 5 and a left lower quadrant 5 were then used by section of the medicine tray using the Harmonic scalpel, allowing the appendix to be brought up, it was taken with endoGIA and removed in a bag. The wound was irrigated and dried, incision was closed with an Endo Stitch of 2 opds followed by Vicryl and all sites were closed with PDS. After the abdomen was thoroughly explored there was nothing on torque. Patient was taken to recovery in good condition after instrument count was declared correct. Eyad Faustin MD [facility]
== END 2016-07-30 11:22 | disposition home or self-care (01) | DRG 343 ==
LOC: ED 13:20 → ERH 18:19 → 3RNO 20:46
PROVIDERS: ADMIT Internal Medicine; ATTEND Internal Medicine
PROC: 0DTJ4ZZ Resection of Appendix, Percutaneous Endoscopic Approach (ICD-10-PCS; principal; 2016-07-28 09:00)
PROC: 3E0F7GC Introduction of Other Therapeutic Substance into Respiratory Tract, Via Natural or Artificial Opening (ICD-10-PCS; 2016-07-29)
DX: K37 Unspecified appendicitis (principal); I10 Essential (primary) hypertension; K57.30 Diverticulosis of large intestine without perforation or abscess without bleeding; J44.9 Chronic obstructive pulmonary disease, unspecified; D64.9 Anemia, unspecified; F41.9 Anxiety disorder, unspecified; F17.210 Nicotine dependence, cigarettes, uncomplicated; R31.9 Hematuria, unspecified; F10.10 Alcohol abuse, uncomplicated

== ENCOUNTER 2017-09-20 08:57 | Inpatient (IN) | payer BC, MEDICAID, OTHER ==
--- NOTE | 2017-09-20 09:19 | ED PDOC ---
Arrival/HPI - General Time Seen by Provider: 09/20/17 09:06 Historian: Patient - History of Present Illness Narrative History of Present Illness (Text): 09/20/17 09:04 A 56 year old male, whose past medical history includes hypertension, presents to the emergency department complaining of palpitations since 05:00 and numbness to all extremities since 07:00. Patient describes numbness as "pins and needles sensation" as well as feeling cold everywhere and associated weakness. Also, patient notes experiencing bilateral facial numbness. Patient denies any chest pain/discomfort, or any other complaints at this time. PMD: Dr. Suri Petty Past Medical History - Provider Review Nursing Documentation Reviewed: Yes - Cardiac Hx Cardiac Disorders: Yes Hx Hypertension: Yes - Pulmonary Hx Respiratory Disorders: No - Neurological Hx Neurological Disorder: No - HEENT Hx HEENT Disorder: No - Renal Hx Kidney Stones: Yes - Endocrine/Metabolic Hx Endocrine Disorders: No - Hematological/Oncological Hx Blood Transfusions: No Hx Blood Transfusion Reaction: No - Integumentary Hx Dermatological Disorder: No - Musculoskeletal/Rheumatological Hx Falls: No - Gastrointestinal Other/Comment: inguinal hernia repair - Genitourinary/Gynecological Hx Genitourinary Disorders: No - Psychiatric Hx Anxiety: Yes Hx Substance Use: No - Surgical History Other/Comment: L INGUINAL HERNIA REPAIR as a child - Anesthesia Hx Anesthesia Reactions: No Hx Malignant Hyperthermia: No - Suicidal Assessment Feels Threatened In Home Enviroment: No Family/Social History - Physician Review Nursing Documentation Reviewed: Yes Family/Social History: No Known Family HX Smoking Status: Current Some Days Smoker Hx Alcohol Use: Yes Hx Substance Use: No Hx Substance Use Treatment: No Allergies/Home Meds Allergies/Adverse Reactions: Allergies No Known Allergies Allergy (Verified 09/20/17 08:59) Home Medications: Home Meds Medication Instructions Recorded Confirmed No Known Home Med 07/27/16 09/20/17 Review of Systems - Physician Review All systems were reviewed & negative as marked: Yes - Review of Systems Respiratory: SOB (slightly) Cardiovascular: Palpitations (described by patient as "heart pumping out of chest.") Musculoskeletal: absent: Back Pain, Other (no leg pain) Neurological: Facial Droop (questionable left-sided facial droop), Other ( numbness/weakness to upper and lower extremities, as well as feeling cold everywhere; facial numbness bilaterally) Physical Exam - Physical Exam Narrative Physical Exam (Text): Gen: VS reviewed, alert, well developed, well nourished, nontoxic, mild distress. ENT: normal pharynx. Eye: EOMI, PERRL. Neck: no JVD, supple, no adenopathy. CV: regular rate, regular rhythm, no rubs, no murmur, no gallops, S1, S2, pulses equal and strong. Pulm: no distress, clear to auscultatio, no wheeze, no rhonchi, breath sounds equal, no rales. Abd: soft, nontender, no guarding, no rebound, no rigidity, normal bowel sounds. Ext: no edema. Skin: good color, no rash, no cyanosis. Psych: responds appropriately to questions, normal affect. Neuro: oriented x 3, diminished sensation to upper/lower extremities and face bilaterally, questionable left lower facial droop, 4/5 strength to left lower extremity, and 5/5 strength to left upper extremities. Vital Signs Reviewed: Yes Vital Signs Temp Pulse Resp BP Pulse Ox 09/20/17 12:30 98.2 F 80 18 147/80 94 L 09/20/17 12:21 88 19 147/90 95 09/20/17 11:15 98.2 F 80 18 120/70 94 L 09/20/17 11:05 157/93 H 09/20/17 10:59 98.3 F 83 18 152/74 H 94 L 09/20/17 10:45 98.2 F 83 20 140/85 93 L 09/20/17 10:33 98.1 F 83 25 H 131/81 96 09/20/17 10:28 98.2 F 87 17 142/77 92 L 09/20/17 10:24 98.2 F 85 22 121/94 H 34 L 09/20/17 10:05 98.6 F 76 22 123/67 94 L 09/20/17 10:04 79 19 166/91 H 94 L 09/20/17 10:02 78 18 178/112 H 95 09/20/17 09:59 78 193/124 H 09/20/17 09:55 72 19 193/124 H 95 09/20/17 09:46 79 18 221/130 H 92 L 09/20/17 09:43 83 224/165 H 09/20/17 09:42 81 18 224/165 H 100 09/20/17 09:12 98.2 F 66 20 206/134 H 100 Temperature: Afebrile Blood Pressure: Hypertensive Pulse: Regular Respiratory Rate: Normal Appearance: Positive for: Well-Appearing, Non-Toxic, Comfortable Pain Distress: None Mental Status: Positive for: Alert and Oriented X 3 Medical Decision Making ED Course and Treatment: 09/20/17 09:05 Impression: 56 year old male with palpitations, slight shortness of breath, and numbness/tingling/weakness to upper/lower extremities and face bilaterally, and left-side questionable facial droop, as well as feeling cold everywhere. Physical exam shows diminished sensation to upper/lower extremities; bilateral facial numbness; questionable facial droop to left side; 4/5 strength in left lower extremities, and 5/5 strength to left upper extremities. Differential Diagnosis included but are not limited to: CVA Plan: -- EKG -- Head CT -- Angio Chest/Abd/Pelvis CT -- Head/Neck CTA -- Nasal Cannula O2 -- Labs -- Fingerstick -- Reassess and disposition Progress Notes: 09/20/17 09:06 Code Stroke called. 09/20/17 09:[address] Marina Singletary, who agrees with CVA protocol. 09/20/17 09:16 Spoke with air conditioning service technician, who states cannot scan head/Neck, and Abd/Pelvis/ Chest at the same time. 09/20/2017 09:[address] FINDINGS: HEMORRHAGE: No intracranial hemorrhage. BRAIN: The elias-white matter differentiation is well preserved. There is no mass effect or definitive edema pattern appreciated including the cortex. There is proportional, minimal expansion of the ventriculosulcal and cisternal spaces however in a pattern most compatible with diffuse cerebral atrophy. No suspicious extra-axial fluid collection is identified in the midline brain anatomy appears grossly nonfocal as imaged. VENTRICLES: Unremarkable. No hydrocephalus. CALVARIUM: Unremarkable. PARANASAL SINUSES: Multiple ethmoid and frontal sinusitis is identified on a moderate basis bilaterally. MASTOID AIR CELLS: Unremarkable as visualized. No inflammatory changes. OTHER FINDINGS: None. IMPRESSION: No acute intracranial findings as discussed above. Minimal age related diffuse cerebral atrophy identified which appears age appropriate. Follow-up CT or MRI are available if clinically warranted. Findings discussed with Dr. Jaffe with written down and read back verification 09/20/2017 9:26 a.m.. Dictator: Enzo Mccartney MD 09/20/17 10:09 tPA bolus started. 09/20/2017 10:29 Angio Chest/Abd/Pelvis CT FINDINGS: CT ANGIOGRAPHY OF THE CHEST WITH & WITHOUT CONTRAST: AORTA (CHEST AND ABDOMEN): The thoracic and abdominal aorta are unremarkable, without aneurysm, dissection or rupture. No intramural thrombus identified in the thoracic aorta on the non-contrast ct of the chest. The celiac axis, superior mesenteric artery, inferior mesenteric artery and the renal arteries are widely patent. The pelvic arteries are unremarkable. LUNGS: There is centrilobular emphysema in the right apex and upper lobe. There is scarring in the peripheral anterior segment of the right upper lobe. No focal consolidation or mass. MEDIASTINUM: There is no evidence of pulmonary embolism. The heart is normal in size. No pericardial effusion. LYMPH NODES: No pathologic mediastinal or hilar lymphadenopathy. PLEURA: No pleural effusion or pneumothorax. BONES: Within normal limits for the patient's age. OTHER FINDINGS: None. CT ANGIOGRAPHY OF THE ABDOMEN AND PELVIS WITH CONTRAST: LIVER: Normal in size. No gross lesion or ductal dilatation. GALLBLADDER AND BILE DUCTS: No calcified gallstones. PANCREAS: Normal in size with homogeneous enhancement. No gross lesion or ductal dilatation. SPLEEN: Normal in size and appearance. ADRENALS: No discrete nodules. KIDNEYS AND URETERS: Normal in size with homogeneous enhancement. No hydronephrosis. No solid mass. Stable simple cysts in the left kidney VASCULATURE: There are atherosclerotic aortoiliac calcifications and mild mural thrombus in the infrarenal aorta. . No aortic aneurysm. STOMACH AND BOWEL: The stomach is underdistended. The small bowel loops are normal in caliber. There is extensive colonic diverticulosis. There is severe circumferential mural thickening in the sigmoid colon there is an apparent 2.8 x 2.4 cm ill-defined enhancing area in the mid sigmoid colon. APPENDIX: Surgically absent. PERITONEUM: No free fluid. No free air. LYMPH NODES: No enlarged lymph nodes. BLADDER: Normal in appearance. REPRODUCTIVE: Mild enlargement of the prostate gland with central coarse calcifications. BONES: No acute fracture. Diffuse bone demineralization. OTHER FINDINGS: There is a small sliding hiatal hernia. IMPRESSION: 1. No evidence for aortic dissection, aortic aneurysm or pulmonary embolism. 2. Extensive colonic diverticulosis. Severe circumferential mural thickening in the sigmoid colon which may represent acute diverticulitis in the appropriate clinical setting. Apparent 2.8 x 2.4 cm ill-defined enhancing area in the mid sigmoid colon which could represent phlegmon/developing abscess however carcinoma cannot be entirely excluded. Clinical follow-up and as and then clinically indicated endoscopic correlation is advised. Dictator: Arabella Booth MD 09/20/17 11:08 Paged field sales consultant for admission. 09/20/17 11:12 Upon reevaluation of patient, patient reports significant improved in symptoms. On repeat exam, patient has 5/5 strength in all extremities, and residual numbness to left foot. 09/20/17 11:40 Case discussed with hospitalist, who accepts patient for admission. Patient seen by ICU team, who will care for patient. 09/20/17 11:45 patient was seen for acute numbness in the face, arms and legs, found to be severely hypertensive upon arrival to the Emergency department. clinically, the patient had cool extremities to the touch so i felt it was prudent to rule out aortic dissection. at the consult of neurology, it was agreed to proceed with thrombolysis. blood pressure was controlled wth several meds prior to tpa given. patient clinically improved significantly after blood pressure control and admin of tpa. abnorml abdominal Ct finding discussed with suri and he will follow up with further management. 09/20/17 11:52 - Critical Care Critical Care Minutes: 60 minutes - Lab Interpretations Lab Results: 09/20/17 09:16 09/20/17 09:16 Lab Results 09/20/17 11:16: Blood Type B POSITIVE, Antibody Screen Negative, BBK History Checked No verified bt 09/20/17 10:44: Troponin I < 0.01 09/20/17 09:16: Sodium 140, Potassium 5.0, Chloride 101, Carbon Dioxide 28, Anion Gap 16, BUN 13, Creatinine 0.8, Est GFR ( Amer) > 60, Est GFR (Non- Af Amer) > 60, Random Glucose 89, Calcium 9.6 09/20/17 09:16: PT 10.2, INR 0.89 L, APTT 34.4 09/20/17 09:16: WBC 6.9, RBC 4.57, Hgb 15.0, Hct 42.4, MCV 92.8, MCH 32.8, MCHC 35.4, RDW 14.1, Plt Count 329, MPV 9.4, Gran % 62.7, Lymph % (Auto) 26.6, [place] % (Auto) 7.6 H, Eos % (Auto) 2.5, Baso % (Auto) 0.6, Gran # 4.31, Lymph # (Auto ) 1.8, [place] # (Auto) 0.5, Eos # (Auto) 0.2, Baso # (Auto) 0.04 09/20/17 09:10: POC Glucose (mg/dL) 67 - RAD Interpretation Radiology Orders: 09/20/17 09:08 HEAD W/O (CODE STROKE) [CT] Stat 09/20/17 09:09 ANGIO CHEST/ABDOMEN/PELVIS [CT] Stat 09/20/17 09:33 CTA HEAD & NECK BUNDLE [CT] Stat - EKG Interpretation EKG Interpretation (Text): 09/20/17 11:51 0857: sinus rhythm at 67 bpm, nml qrs, lvh with early repol, rare pvc - Medication Orders Current Medication Orders: Albuterol/Ipratropium (Duoneb 3 Mg/0.5 Mg (3 Ml) Ud) 3 ml IH [id number] PRN PRN Reason: Wheezing Last Admin: 09/20/17 17:45 Dose: 3 ml Folic Acid (Folic Acid) 1 mg PO DAILY [facility] Last Admin: 09/20/17 16:47 Dose: 1 mg Lorazepam (Ativan) 1 mg IVP Q2 PRN; Protocol PRN Reason: Symptoms of alcohol withdrawl Multivitamins (Thera Tab) 1 tab PO 0800 [facility] Nicotine (Nicoderm Cq) 1 patch TD DAILY [facility] Last Admin: 09/20/17 17:48 Dose: 1 patch MAR Transdermal Patch Site Document 09/20/17 17:48 MB (Rec: 09/20/17 17:48 MB [id number]) Transdermal Patch Site Transdermal Patch Site Right Shoulder Thiamine HCl (Vitamin B1 Tab) 100 mg PO DAILY [facility] Last Admin: 09/20/17 16:47 Dose: 100 mg Discontinued Medications Alteplase, Recombinant (Activase 100 Mg Inj) 57 mg 0.81 mg/kg (57 mg) IV ONCE ONE Stop: 09/20/17 09:36 Last Admin: 09/20/17 10:15 Dose: 57 mg eMAR Start Stop Document 09/20/17 10:15 [email or web address] (Rec: 09/20/17 10:15 [email or web address] [id number]) Intravenous Solution Start Date 09/20/17 Start Time 10:15 Alteplase, Recombinant (Activase 100 Mg Inj) 6 mg 0.09 mg/kg (6 mg) IV ONCE ONE Stop: 09/20/17 09:36 Last Admin: 09/20/17 10:08 Dose: 6 mg Comments: Given by Dr. Jaffe. eMAR Start Stop Document 09/20/17 10:08 [email or web address] (Rec: 09/20/17 10:09 [email or web address] [id number]) Intravenous Solution Start Date 09/20/17 Start Time 10:09 Hydralazine HCl (Apresoline) 10 mg IVP STAT STA Stop: 09/20/17 09:52 Last Admin: 09/20/17 09:59 Dose: 10 mg IVP Administration Document 09/20/17 09:59 [email or web address] (Rec: 09/20/17 10:00 [email or web address] [id number]) Charges for Administration # of IVP Administrations 1 MAR Pulse and Blood Pressure Document 09/20/17 09:59 [email or web address] (Rec: 09/20/17 10:00 [email or web address] [id number]) Pulse Pulse Rate (60-90) 78 Blood Pressure Blood Pressure (100/60-150/90) 193/124 Hydralazine HCl (Apresoline) 10 mg IVP STAT STA Stop: 09/20/17 09:53 Last Admin: 09/20/17 10:17 Dose: Not Given Non-Admin Reason: BP Parameters Not Met Comments: not need BP decreased. Labetalol HCl (Trandate) 20 mg IV STAT STA Stop: 09/20/17 09:29 Last Admin: 09/20/17 09:43 Dose: 20 mg eMAR Start Stop Document 09/20/17 09:43 [email or web address] (Rec: 09/20/17 09:43 [email or web address] [id number]) Intravenous Solution Start Date 09/20/17 Start Time 09:43 MAR Pulse and Blood Pressure Document 09/20/17 09:43 [email or web address] (Rec: 09/20/17 09:43 [email or web address] [id number]) Pulse Pulse Rate (60-90) 83 Blood Pressure Blood Pressure (100/60-150/90) 224/165 Pneumococcal Polyvalent Vaccine (Pneumovax 23 Vaccine) 0.5 ml IM .ONCE ONE Stop: 09/20/17 17:13 NIHSS Scale (Hines) Time Performed: 09:06 - How Severe is the Stoke Baseline Level of Consciousness: 0=Alert LOC to Questions: 0=Both comments correct LOC to commands: 0=Obeys both correctly Best Gaze: 0=Normal Visual: 0=No visual loss Facial: 1=Minor asymmetry Motor Arm - Left: 1=Drift noted before 10 sec Motor Arm - Right: 0=No drift Motor Leg - Left: 1=Drift before 5 sec Motor Leg - Right: 0=No drift Limb Ataxia: 0=Absent Sensory: 2=Severe to total loss Best Language: 0=No aphasia Dysarthia: 0=Normal articulation Extinction & Inattention (Neglect): 0=Normal, no object Score: 5 Risk Level: Mod Stroke Risk rTPA Inclusion/Exclusion - Refusal of Treatment Patient Refused Treatment: No - Inclusion Criteria for Altepase Patient is 18 years or Older: Yes The Clinical Diagnosis of Ischemic Stroke That is Causing a Potentially Disabling Neurological Deficit: Yes Time of Onset is Well Established to be Less Than 270 Minute Before Treatment Would Begin: Yes Risk/Benefit Discussed With Patient/Family Member Present: Yes - Exclusion Criteria for Altepase Uncontrolled Hypertension at Time of Treatment (Systolic BP above 185 or Diastolic BP above 110 mmHg): Yes - Warning to TPA With Conditions Following Conditions Weighed Against Anticipated Benefit: No - Scribe Statement The provider has reviewed the documentation as recorded by the Leonardo Aguilera Provider Scribe Attestation: All medical record entries made by the Leonardo were at my direction and personally dictated by me. I have reviewed the chart and agree that the record accurately reflects my personal performance of the history, physical exam, medical decision making, and the department course for this patient. I have also personally directed, reviewed, and agree with the discharge instructions and disposition. Disposition/Present on Arrival - Present on Arrival Any Indicators Present on Arrival: No History of DVT/PE: No History of Uncontrolled Diabetes: No Urinary Catheter: No History Surgical Site Infection Following: None - Disposition Have Diagnosis and Disposition been Completed?: Yes Diagnosis: CVA (cerebral vascular accident) Disposition: HOSPITALIZED Disposition Time: 17:55 Condition: FAIR
[2017-09-20] MEDS ORDERED: Labetalol 5 mg/ml Inj 20ML IV STA (09:28)
[2017-09-20 09:45] LABS: BASO # 0.04 K/mm3 (0.0-2.0); BASO % 0.6 % (0.0-3.0); EOS # 0.2 (0.0-0.7); EOS % 2.5 % (1.5-5.0); GRAN # 4.31 (1.4-6.5); GRAN % 62.7 % (50.0-68.0); LYMPH # 1.8 (1.2-3.4); LYMPH % 26.6 % (22.0-35.0); MEAN CELL VOLUME 92.8 fl (80.0-105.0); MEAN CORPUSCULAR HEMOGLOBIN 32.8 pg (25.0-35.0); MEAN CORPUSCULAR HGB CONC 35.4 g/dl (31.0-37.0); MEAN PLATELET VOLUME 9.4 fl (7.0-11.0); MONO # 0.5 (0.1-0.6); MONO % 7.6 % (1.0-6.0); RBC 4.57 10^6/uL (3.5-6.1); RED CELL DISTRIBUTION WIDTH 14.1 % (11.5-14.5); WHITE BLOOD COUNT 6.9 10^3/ul (4.5-11.0)
--- NOTE | 2017-09-20 09:45 | CT ---
PROCEDURE: CT HEAD WITHOUT CONTRAST. HISTORY: cva COMPARISON: None available. TECHNIQUE: Axial computed tomography images were obtained through the head/brain without intravenous contrast. Radiation dose: Total exam DLP = 1036.19 mGy-cm. This CT exam was performed using one or more of the following dose reduction techniques: Automated exposure control, adjustment of the mA and/or kV according to patient size, and/or use of iterative reconstruction technique. FINDINGS: HEMORRHAGE: No intracranial hemorrhage. BRAIN: The elias-white matter differentiation is well preserved. There is no mass effect or definitive edema pattern appreciated including the cortex. There is proportional, minimal expansion of the ventriculosulcal and cisternal spaces however in a pattern most compatible with diffuse cerebral atrophy. No suspicious extra-axial fluid collection is identified in the midline brain anatomy appears grossly nonfocal as imaged. VENTRICLES: Unremarkable. No hydrocephalus. CALVARIUM: Unremarkable. PARANASAL SINUSES: Multiple ethmoid and frontal sinusitis is identified on a moderate basis bilaterally. MASTOID AIR CELLS: Unremarkable as visualized. No inflammatory changes. OTHER FINDINGS: None. IMPRESSION: No acute intracranial findings as discussed above. Minimal age related diffuse cerebral atrophy identified which appears age appropriate. Follow-up CT or MRI are available if clinically warranted. Findings discussed with Dr. Jaffe with written down and read back verification 09/20/2017 9:26 a.m..
[2017-09-20 09:53] LABS: BLOOD UREA NITROGEN 13 mg/dL (7-21); CALCIUM 9.6 mg/dL (8.4-10.5); GFR AFRICAN-AMERICAN > 60; GFR NON-AFRICAN AMERICAN > 60
[2017-09-20 09:58] LABS: INR 0.89 (0.93-1.08); PARTIAL THROMBOPLASTIN TIME 34.4 Seconds (25.1-36.5); PROTHROMBIN TIME 10.2 SECONDS (9.4-12.5)
[2017-09-20] MEDS ORDERED: Iodixanol 320 MG/ML 100 ML BOTTLE IV ONE (10:08)
--- NOTE | 2017-09-20 10:30 | CT ---
PROCEDURE: CT Angiography Chest, Abdomen and Pelvis with and without intravenous contrast HISTORY: aortic dissection COMPARISON: CTA chest from 05/02/[address] abdomen and pelvis from 07/27/2016 TECHNIQUE: Contiguous axial images of the chest, abdomen and pelvis were obtained in the phase of aortic enhancement. A noncontrast enhanced CT of the chest was also obtained to evaluate for possible intramural thrombus. Coronal and sagittal reformats were generated. IV dose administered: Radiation dose: Total exam DLP = mGy-cm. This CT exam was performed using one or more of the following dose reduction techniques: Automated exposure control, adjustment of the mA and/or kV according to patient size, and/or use of iterative reconstruction technique. FINDINGS: CT ANGIOGRAPHY OF THE CHEST WITH & WITHOUT CONTRAST: AORTA (CHEST AND ABDOMEN): The thoracic and abdominal aorta are unremarkable, without aneurysm, dissection or rupture. No intramural thrombus identified in the thoracic aorta on the non-contrast ct of the chest. The celiac axis, superior mesenteric artery, inferior mesenteric artery and the renal arteries are widely patent. The pelvic arteries are unremarkable. LUNGS: There is centrilobular emphysema in the right apex and upper lobe. There is scarring in the peripheral anterior segment of the right upper lobe. No focal consolidation or mass. MEDIASTINUM: There is no evidence of pulmonary embolism. The heart is normal in size. No pericardial effusion. LYMPH NODES: No pathologic mediastinal or hilar lymphadenopathy. PLEURA: No pleural effusion or pneumothorax. BONES: Within normal limits for the patient's age. OTHER FINDINGS: None. CT ANGIOGRAPHY OF THE ABDOMEN AND PELVIS WITH CONTRAST: LIVER: Normal in size. No gross lesion or ductal dilatation. GALLBLADDER AND BILE DUCTS: No calcified gallstones. PANCREAS: Normal in size with homogeneous enhancement. No gross lesion or ductal dilatation. SPLEEN: Normal in size and appearance. ADRENALS: No discrete nodules. KIDNEYS AND URETERS: Normal in size with homogeneous enhancement. No hydronephrosis. No solid mass. Stable simple cysts in the left kidney VASCULATURE: There are atherosclerotic aortoiliac calcifications and mild mural thrombus in the infrarenal aorta. . No aortic aneurysm. STOMACH AND BOWEL: The stomach is underdistended. The small bowel loops are normal in caliber. There is extensive colonic diverticulosis. There is severe circumferential mural thickening in the sigmoid colon there is an apparent 2.8 x 2.4 cm ill-defined enhancing area in the mid sigmoid colon. APPENDIX: Surgically absent. PERITONEUM: No free fluid. No free air. LYMPH NODES: No enlarged lymph nodes. BLADDER: Normal in appearance. REPRODUCTIVE: Mild enlargement of the prostate gland with central coarse calcifications. BONES: No acute fracture. Diffuse bone demineralization. OTHER FINDINGS: There is a small sliding hiatal hernia. IMPRESSION: 1. No evidence for aortic dissection, aortic aneurysm or pulmonary embolism. 2. Extensive colonic diverticulosis. Severe circumferential mural thickening in the sigmoid colon which may represent acute diverticulitis in the appropriate clinical setting. Apparent 2.8 x 2.4 cm ill-defined enhancing area in the mid sigmoid colon which could represent phlegmon/developing abscess however carcinoma cannot be entirely excluded. Clinical follow-up and as and then clinically indicated endoscopic correlation is advised.
--- NOTE | 2017-09-20 11:52 | CP.PCM.CON ---
History of Present Illness - History of Present Illness History of Present Illness: MICU CONSULT NOTE Patient is 56oy male with PMHx of HTN, active smoker 1pk per day, presents with bilateral extremity numbness/tingling, and facial numbness, associated with L sided chest pain, and palpitations, that started at 0700. Pt denies fever, chills, cough, CORTÉS, dizziness, muscle weakness. No other constitutional symptoms. Code stroke was called in the ER, and patient was given tPA, reports that symptoms are resolving. PMhx HTN PSHx as above Meds NONE FHx NC Social Hx smokes 1pk pd, drinks 5-6 beers per day, denies illicit drug use Review of Systems - Review of Systems Review of Systems: as per HPI Past Patient History - Infectious Disease Hx of Infectious Diseases: None - Past Social History Smoking Status: Current Some Days Smoker - CARDIAC Hx Cardiac Disorders: Yes Hx Hypertension: Yes - PULMONARY Hx Respiratory Disorders: No - NEUROLOGICAL Hx Neurological Disorder: No - HEENT Hx HEENT Problems: No - RENAL Hx Kidney Stones: Yes - ENDOCRINE/METABOLIC Hx Endocrine Disorders: No - HEMATOLOGICAL/ONCOLOGICAL Hx Blood Transfusions: No Hx Blood Transfusion Reaction: No - INTEGUMENTARY Hx Dermatological Problems: No - MUSCULOSKELETAL/RHEUMATOLOGICAL Hx Falls: No - GASTROINTESTINAL Other/Comment: inguinal hernia repair - GENITOURINARY/GYNECOLOGICAL Hx Genitourinary Disorders: No - PSYCHIATRIC Hx Anxiety: Yes Hx Substance Use: No - SURGICAL HISTORY Other/Comment: L INGUINAL HERNIA REPAIR as a child - ANESTHESIA Hx Anesthesia Reactions: No Hx Malignant Hyperthermia: No Meds Allergies/Adverse Reactions: Allergies Allergy/AdvReac Type Severity Reaction Status Date / Time No Known Allergies Allergy Verified 09/20/17 08:59 Physical Exam - Constitutional Appears: Non-toxic, No Acute Distress - Head Exam Head Exam: NORMAL INSPECTION - Eye Exam Eye Exam: EOMI, Normal appearance - ENT Exam ENT Exam: Mucous Membranes Moist - Neck Exam Neck exam: Positive for: Full Rom - Respiratory Exam Respiratory Exam: Clear to Auscultation Bilateral, NORMAL BREATHING PATTERN - Cardiovascular Exam Cardiovascular Exam: REGULAR RHYTHM, +S1, +S2 - GI/Abdominal Exam GI & Abdominal Exam: Normal Bowel Sounds, Soft - Extremities Exam Extremities exam: Positive for: full ROM, normal inspection - Neurological Exam Neurological exam: Alert, CN II-XII Intact, Oriented x3, Reflexes Normal Additional comments: motor 5/5 all ext - Psychiatric Exam Psychiatric exam: Normal Affect - Skin Skin Exam: Normal Color, Warm Results - Vital Signs Recent Vital Signs: Last Vital Signs Temp 98.2 F 09/20/17 11:15 Pulse 80 09/20/17 11:15 Resp 18 09/20/17 11:15 BP 120/70 09/20/17 11:15 Pulse Ox 94 L 09/20/17 11:15 - Labs Result Diagrams: 09/20/17 09:16 09/20/17 09:16 Labs: Laboratory Results - last 24 hr 09/20/17 09/20/17 09/20/17 09:10 09:16 09:16 WBC 6.9 RBC 4.57 Hgb 15.0 Hct 42.4 MCV 92.8 MCH 32.8 MCHC 35.4 RDW 14.1 Plt Count 329 MPV 9.4 Gran % 62.7 Lymph % (Auto) 26.6 [place] % (Auto) 7.6 H Eos % (Auto) 2.5 Baso % (Auto) 0.6 Gran # 4.31 Lymph # (Auto) 1.8 [place] # (Auto) 0.5 Eos # (Auto) 0.2 Baso # (Auto) 0.04 PT 10.2 INR 0.89 L APTT 34.4 Sodium Potassium Chloride Carbon Dioxide Anion Gap BUN Creatinine Est GFR ( Amer) Est GFR (Non-Af Amer) POC Glucose (mg/dL) 67 Random Glucose Calcium 09/20/17 09:16 WBC RBC Hgb Hct MCV MCH MCHC RDW Plt Count MPV Gran % Lymph % (Auto) [place] % (Auto) Eos % (Auto) Baso % (Auto) Gran # Lymph # (Auto) [place] # (Auto) Eos # (Auto) Baso # (Auto) PT INR APTT Sodium 140 Potassium 5.0 Chloride 101 Carbon Dioxide 28 Anion Gap 16 BUN 13 Creatinine 0.8 Est GFR ( Amer) > 60 Est GFR (Non-Af Amer) > 60 POC Glucose (mg/dL) Random Glucose 89 Calcium 9.6 Assessment & Plan - Assessment and Plan (Free Text) Assessment: 56yo male a/w acute CVA/TIA, chest pain s/p tPA Chest Pain CVA - currently afebrile, BP stable, comfortable in NAD, AAOx3, motor strength 5/5 al ext, s/p tPA infusion Recommend: - supp o2 as needed - duonebs PRN - no ID issues - BP control - hold ASA, HSQ for now - no IV draws x 24hr - ECHO - check troponin, EKG - Check lipid panel, TSH, HgbA1C - Neurology follow up - q1hr neuro checks - MRI brain - GI ppx - DVT ppx, SCDs - Admit to MICU
--- NOTE | 2017-09-20 13:26 | CT ---
PROCEDURE: CT Angiography of the Brain. HISTORY: cva COMPARISON: None available. TECHNIQUE: CT angiography of the intracranial and neck arteries was performed. Coronal and sagittal maximum intensity projection reformatted images were generated. Contrast Dose: Visipaque 320, 70 cc Radiation dose:Total exam DLP = 458.11 mGy-cm. This CT exam was performed using one or more of the following dose reduction techniques: Automated exposure control, adjustment of the mA and/or kV according to patient size, and/or use of iterative reconstruction technique. FINDINGS: INTERNAL CEREBRAL ARTERIES: Atherosclerosis results in mild right and moderate left cavernous ICA stenoses. The skull base, petrous, and supraclinoid segments are bilaterally widely patent. ANTERIOR CEREBRAL ARTERIES: Unremarkable. A1 and A2 segments are widely patent. Smaller distal branches unremarkable, as visualized. MIDDLE CEREBRAL ARTERIES: Unremarkable. M1 and M2 segments are widely patent. Perisylvian branches grossly symmetric. POSTERIOR CIRCULATION: Basilar Artery: Unremarkable. Distal Vertebral Arteries: Codominant vertebrobasilar circulation widely patent. Posterior Cerebral Arteries: Unremarkable. Posterior Inferior Cerebellar Arteries: Unremarkable. NECK CTA: Common Carotid arteries: The bilateral common carotid appear widely patent from their origins to their bifurcations with no significant stenosis appreciated. Limited bilateral carotid bulbar atherosclerosis identified. No evidence to suggest common carotid artery dissection. Internal Carotid arteries: No significant stenosis is appreciated throughout the cervical internal carotid artery segments bilaterally and there is no evidence of dissection either. External Carotid arteries: Appear unremarkable bilaterally. Vertebral arteries: The bilateral vertebral arteries appear normal in caliber from their origins to their junction with the basilar artery. No significant stenosis or definite pattern of dissection. ANEURYSM/ VASCULAR MALFORMATIONS: None. OTHER FINDINGS: None. IMPRESSION: 1. Brain CT remarkable for moderate left and mild right cavernous ICA stenoses. The remaining central arterial circulation is widely patent without occlusion or significant stenosis evident. 2. No arterial occlusion or significant stenosis in CT of the neck. Limited bilateral carotid bulbar atherosclerosis identified.
--- NOTE | 2017-09-20 14:00 | CP.PCM.HP ---
<Jony Escalona - Last Filed: 09/20/17 16:30> History of Present Illness - History of Present Illness History of Present Illness: Patient is a 56 yo male with past medical history of HTN, COPD, diverticulitis, inguinal hernia, alcohol and tobacco abuse presenting to ED with complaint of numbness and tingling in his lower extremities bilaterally along with numbness in his face. He states that he was exerting himself by spackling when his symptoms began. In addition, he started feeling palpitations which prompted his decision to come to the ED. Denies chest pain, SOB, diaphoresis, N/V, abd pain. He states that since arriving at the hospital his numbness and tingling has resolved. However he still has palpitations occasionally. Patient has previously been seen in the past by Dr. Petty, who has prescribed him medications for management of his HTN. However patient is noncompliant because he feels the medications drop his BP too low. Patient's last alcoholic drink was yesterday. PMH: as stated above Surgical history: left inguinal hernia repair Social history: 9 beers a day. Cigarettes 1.5 PPD. 52 year smoking history. Denies recreational drug use. Allergies: NKDA FHx: Mother (, HTN, lymphoma) Father (, alcoholism) Home meds: none PMD: Dr. Petty Present on Admission - Present on Admission Any Indicators Present on Admission: No History of DVT/PE: No History of Uncontrolled Diabetes: No Urinary Catheter: No Decubitus Ulcer Present: No Past Patient History - Infectious Disease Hx of Infectious Diseases: None - Past Medical History & Family History Past Medical History?: Yes Pertinent Family History: Mother: HTN, lymphoma. . Father: alcoholism. . 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 Alcohol: > 2 Drinks/Day Drugs: Denies - CARDIAC Hx Cardiac Disorders: Yes Hx Hypertension: Yes - PULMONARY Hx Respiratory Disorders: No - NEUROLOGICAL Hx Neurological Disorder: No - HEENT Hx HEENT Problems: No - RENAL Hx Kidney Stones: Yes - ENDOCRINE/METABOLIC Hx Endocrine Disorders: No - HEMATOLOGICAL/ONCOLOGICAL Hx Blood Transfusions: No Hx Blood Transfusion Reaction: No - INTEGUMENTARY Hx Dermatological Problems: No - MUSCULOSKELETAL/RHEUMATOLOGICAL Hx Falls: No - GASTROINTESTINAL Other/Comment: inguinal hernia repair - GENITOURINARY/GYNECOLOGICAL Hx Genitourinary Disorders: No - PSYCHIATRIC Hx Anxiety: Yes Hx Substance Use: No - SURGICAL HISTORY Other/Comment: L INGUINAL HERNIA REPAIR as a child - ANESTHESIA Hx Anesthesia Reactions: No Hx Malignant Hyperthermia: No Meds Allergies/Adverse Reactions: Allergies Allergy/AdvReac Type Severity Reaction Status Date / Time No Known Allergies Allergy Verified 09/20/17 08:59 Physical Exam - Constitutional Appears: Non-toxic, No Acute Distress - Head Exam Head Exam: ATRAUMATIC, NORMOCEPHALIC - Eye Exam Eye Exam: EOMI, Normal appearance, PERRL - ENT Exam ENT Exam: Mucous Membranes Moist, Normal Exam - Neck Exam Neck exam: Positive for: Full Rom, Normal Inspection - Respiratory Exam Respiratory Exam: Clear to Auscultation Bilateral, NORMAL BREATHING PATTERN. absent: Rales, Rhonchi, Wheezes - Cardiovascular Exam Cardiovascular Exam: REGULAR RHYTHM, +S1, +S2. absent: Diastolic murmur, Gallop , Rubs, Systolic Murmur - GI/Abdominal Exam GI & Abdominal Exam: Normal Bowel Sounds, Soft. absent: Distended, Mass, Organomegaly, Rebound, Tenderness - Rectal Exam Rectal Exam: Deferred - Extremities Exam Extremities exam: Positive for: full ROM, normal inspection - Back Exam Back exam: NORMAL INSPECTION - Neurological Exam Neurological exam: Alert, CN II-XII Intact, Oriented x3 Additional comments: AAO x3. Muscle strength +5/5. No dysmetria. - Psychiatric Exam Psychiatric exam: Normal Affect, Normal Mood - Skin Skin Exam: Dry, Intact, Normal Color Results - Vital Signs Recent Vital Signs: Last Vital Signs Temp 98.2 F 09/20/17 12:30 Pulse 80 09/20/17 12:30 Resp 18 09/20/17 12:30 BP 147/80 09/20/17 12:30 Pulse Ox 94 L 09/20/17 12:30 - Labs Result Diagrams: 09/20/17 09:16 09/20/17 09:16 Labs: Laboratory Results - last 24 hr 09/20/17 11:44 Blood Type Confirm B POSITIVE Assessment & Plan - Assessment and Plan (Free Text) Plan: Numbness and tingling - Stroke vs. TIA - CT head shows no acute intracranial findings. - Chest/Abd/Pelvis CTA shows no evidence of aortic dissection, aortic aneurysm, PE. - Head/Neck CTA negative - tPA administered in ED. Will montor pt in ICU due to risk of conversion to hemorrhagic stroke - Labetalol and hydralazine administered in ED - Troponin neg x1 - EKG shows sinus rhythm - Head CT - Folic acid - Multivitamin - CBC, Mg, Phos - ECHO - Cardiology consult - Neuro consult History of hypertension - Elevated blood pressure trend and appreciated - Permissive hypertension - Management by ICU team Alcohol abuse - Concern for withdrawal. Patient placed on CIWA protocol. - Thiamine, ativan PRN - Counseling Tobacco abuse - Counseling DVT/GI prophylaxis - DVT: SCDs - GI: not indicated at this time Case seen and discussed with Dr. David Escalona PGY 1 Resident Note <Briseyda Hernandez - Last Filed: 09/20/17 18:35> Results - Vital Signs Recent Vital Signs: Last Vital Signs Temp 98.2 F 09/20/17 16:52 Pulse 82 09/20/17 18:00 Resp 11 L 09/20/17 17:50 BP 132/81 09/20/17 17:30 Pulse Ox 100 09/20/17 17:50 - Labs Result Diagrams: 09/20/17 09:16 09/20/17 09:16 Labs: Laboratory Results - last 24 hr 09/20/17 09/20/17 11:44 15:59 Phosphorus 3.7 Magnesium 1.8 Troponin I < 0.01 Blood Type Confirm B POSITIVE Attending/Attestation - Attestation I have personally seen and examined this patient.: Yes I have fully participated in the care of the patient.: Yes I have reviewed all pertinent clinical information: Yes Notes (Text): Patient seen and examined by me at 1:00PM with resident at bedside. Case including physical assessment and plan discussed in detail with resident. Agree with above with following additions/changes. Patient is a 56-year-old male with past medical history significant for hypertension, alcohol abuse, tobacco abuse, COPD, and diverticulitis the presented to the emergency room with chest palpitations and tingling and numbness in bilateral extremities and numbness in the face. 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 This started while he was at work. Tingling and numbness resolved. Patient was given TPA in the emergency room. Patient still with intermittent palpitations. She denies any associated chest pain. No diaphoresis. Patient is a heavy drinker. Drinks 7-10 beers a day. Last drink was yesterday. Patient denies any headaches or dizziness. No change in vision. No muscle or extremity weakness. No shortness of breath. No fevers or chills. No dysuria. No diarrhea or constipation. 14 point review of systems reviewed by me. See HPI. All other systems are negative. Physical exam: Gen: Patient is awake and alert lying in bed in no acute distress HEENT: Normocephalic atraumatic. extraocular muscles intact. Pupils equal and reactive. Hearing grossly intact. Ears and nose externally unremarkable. Pharynx is pink. Dry mucous membranes. No pharyngeal erythema or exudate appreciated. Neck is supple. Pulmonary: Normal respiratory effort. No rhonchi, rales, or wheezing appreciated Cardiovascular: Normal rhythm. Normal S1 and S2. No murmurs or gallops appreciated. Gastrointestinal: Soft, nontender, nondistended. Positive bowel sounds all 4 quadrants. No guarding. Musculoskeletal: Normal range of motion all extremities. Calf tenderness. No CVA tenderness. Vascular: 2+ peripheral pulses upper and lower extremities Central nervous system: AAO 3. Cranial nerves II through XII grossly intact. 5 out of 5 muscle strength all extremities. Dentition intact. No dysarthria. No facial droop. NIH stroke scale score 0 Dermatologic: Skin warm and dry Assessment and plan: Patient is [id number] male who presented to the emergency room chest palpitations and tingling and numbness in bilateral extremities and numbness in the face. Patient was treated with TPA in the emergency room. 1. Numbness and tingling in the extremities. Rule out CVA. Patient is status post TPA in the emergency room. Neurology following, recommendations appreciated. CT head per radiology shows no acute intracranial findings, minimal age-related diffuse cerebral atrophy which appears to be age appropriate. Brain CT per radiologist is remarkable for moderate left and mild right cavernous ICA stenosis. Echo pending. Monitor vital signs. Bleeding precautions. Monitor in the ICU. 2. Chest palpitations. Cardiology consulted, follow-up recommendations. Follow up 2-D echo. All serial troponin. Follow-up hemoglobin A1c, TSH, and lipid media monitor on telemetry. No aspirin for 24 hours as patient received TPA. 3. hypertension. Allow for permissive hypertension for next 24 hours for possible CVA. 4. Alcohol abuse. Patient counseled on cessation. Placed on CIWA protocol. Placed on thiamine and folic acid. Monitor for any withdrawal symptoms. 5. tobacco abuse. Counseled on Cessation. 6. Patient is a full code 7. DVT prophylaxis: Bilateral SCDs Case was discussed in detail with patient and patient's at bedside regarding current diagnosis and treatment plan.
--- NOTE | 2017-09-20 16:08 | CP.PCM.CON ---
History of Present Illness - History of Present Illness History of Present Illness: TeleStroke Consult Note: this is a telehealth visit being conducted with bi- directional video conference through [employer]. Mr. Dow is a 56-year-old man with a past medical history of hypertension, who presented to the ED with complaints of left side numbness that had started about 90 minutes prior to arrival. He said that his symptoms started with palpitations and left sided chest pain. CT scan of the head did not show any acute findings. NIHSS was 2. He was consented for IV tPA since he was within the 3 hour time window. Initially, his BP was elevated and he required several doses of labetelol prior to tPA bolus. 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 Drugs: Denies - CARDIAC Hx Cardiac Disorders: Yes Hx Hypertension: Yes - PULMONARY Hx Respiratory Disorders: No - NEUROLOGICAL Hx Neurological Disorder: No - HEENT Hx HEENT Problems: No - RENAL Hx Kidney Stones: Yes - ENDOCRINE/METABOLIC Hx Endocrine Disorders: No - HEMATOLOGICAL/ONCOLOGICAL Hx Blood Transfusions: No Hx Blood Transfusion Reaction: No - INTEGUMENTARY Hx Dermatological Problems: No - MUSCULOSKELETAL/RHEUMATOLOGICAL Hx Falls: No - GASTROINTESTINAL Other/Comment: inguinal hernia repair - GENITOURINARY/GYNECOLOGICAL Hx Genitourinary Disorders: No - PSYCHIATRIC Hx Anxiety: Yes Hx Substance Use: No - SURGICAL HISTORY Other/Comment: L INGUINAL HERNIA REPAIR as a child - ANESTHESIA Hx Anesthesia Reactions: No Hx Malignant Hyperthermia: No Meds Allergies/Adverse Reactions: Allergies Allergy/AdvReac Type Severity Reaction Status Date / Time No Known Allergies Allergy Verified 09/20/17 08:59 - Medications Medications: Current Medications Folic Acid (Folic Acid) 1 mg PO DAILY JOSIE Lorazepam (Ativan) 1 mg IVP Q2 PRN; Protocol PRN Reason: Symptoms of alcohol withdrawl Multivitamins (Thera Tab) 1 tab PO 0800 JOSIE Thiamine HCl (Vitamin B1 Tab) 100 mg PO DAILY JOSIE Physical Exam - Neurological Exam Neurological exam: Alert, CN II-XII Intact, Oriented x3, Reflexes Normal Additional comments: Left face, arm and leg numbness with slight pronator drift on the left. NIHSS = 2. Results - Vital Signs Recent Vital Signs: Last Vital Signs Temp 98.2 F 09/20/17 12:30 Pulse 69 09/20/17 13:20 Resp 22 09/20/17 14:20 BP 153/91 H 09/20/17 14:20 Pulse Ox 96 09/20/17 14:20 - Labs Result Diagrams: 09/20/17 09:16 09/20/17 09:16 Labs: Laboratory Results - last 24 hr 09/20/17 11:44 Blood Type Confirm B POSITIVE Assessment & Plan - Assessment and Plan (Free Text) Assessment: Based on the acute onset of left side numbness, the patient likely has a small right subcortical infarct. However, it is difficult to say whether or not this could be a large vessel infarct. I recommend the followin. Admit to ICU after tPA bolus and follow post-tPA protocol for BP and neurochecks. 2. Avoid antiplatelet agents or anticoagulants for the next 24 hours 3. CTA of the head/neck 4. MRI brain without contrast 5. PT/OT eval and treatment 6. Echocardiogram with bubble study 7. NPO till swallow eval 8. Case management consult Thank you.
[2017-09-20 16:25] LABS: TROPONIN I < 0.01 ng/mL
[2017-09-20] MEDS ORDERED: Albuterol-Ipratrop 3 mg / 0.5 (3 ml) UD IH PRN (17:09)
[2017-09-20 17:12] VITALS: BMI 21.7
[2017-09-20] MEDS ORDERED: Pneumococcal 23-Valent Vaccine IM ONE (17:12)
[2017-09-21 06:24] LABS: BASO # 0.02 K/mm3 (0.0-2.0); BASO % 0.3 % (0.0-3.0); EOS # 0.3 (0.0-0.7); EOS % 4.7 % (1.5-5.0); GRAN # 3.39 (1.4-6.5); HEMOGLOBIN 13.1 g/dL (14.0-18.0); LYMPH # 1.6 (1.2-3.4); LYMPH % 28.2 % (22.0-35.0); MEAN CELL VOLUME 93.9 fl (80.0-105.0); MEAN CORPUSCULAR HEMOGLOBIN 32.1 pg (25.0-35.0); MEAN CORPUSCULAR HGB CONC 34.2 g/dl (31.0-37.0); MEAN PLATELET VOLUME 9.2 fl (7.0-11.0); MONO # 0.5 (0.1-0.6); MONO % 7.8 % (1.0-6.0); RBC 4.08 10^6/uL (3.5-6.1); RED CELL DISTRIBUTION WIDTH 14.4 % (11.5-14.5); WHITE BLOOD COUNT 5.8 10^3/ul (4.5-11.0)
[2017-09-21 06:39] LABS: ALB/GLOB RATIO 1.4 (1.1-1.8); ALBUMIN 3.9 g/dL (3.0-4.8); ALT/SGPT 22 U/L (7-56); AST/SGOT 29 U/L (17-59); BLOOD UREA NITROGEN 15 mg/dL (7-21); CALCIUM 8.6 mg/dL (8.4-10.5); GFR AFRICAN-AMERICAN > 60; GFR NON-AFRICAN AMERICAN > 60; HDL CHOLESTEROL 49 mg/dL (29-60)
--- NOTE | 2017-09-21 06:42 | CT ---
PROCEDURE: CT HEAD WITHOUT CONTRAST. HISTORY: acute change in pupil, r/o hemorrhage COMPARISON: CT head dated 09/20/2017 TECHNIQUE: Axial computed tomography images were obtained through the head/brain without intravenous contrast. Radiation dose: Total exam DLP = 959 mGy-cm. This CT exam was performed using one or more of the following dose reduction techniques: Automated exposure control, adjustment of the mA and/or kV according to patient size, and/or use of iterative reconstruction technique. FINDINGS: HEMORRHAGE: No intracranial hemorrhage. BRAIN: Mild diffuse cerebral atrophy present consistent with the patient's age. Scattered focal lucencies in the subcortical and periventricular white matter suggestive for chronic microvascular ischemic change. VENTRICLES: Unremarkable. No hydrocephalus. CALVARIUM: Unremarkable. PARANASAL SINUSES: Partial opacification of the ethmoid air cells. Mucosal polyp versus retention cyst in the left sphenoid sinus. Partial opacification of left frontal sinus. MASTOID AIR CELLS: Partial sclerosis and or opacification of the left mastoid air cells. OTHER FINDINGS: None. IMPRESSION: No acute intracranial hemorrhage. Sinus mucosal disease as above. If symptoms persist, consider correlation with MRI. These findings were preliminarily reported at 8:51 p.m. on 09/20/[address] [place] Hoffman from [facility].
[2017-09-21 06:50] LABS: LDL CHOLESTEROL 109 mg/dL (0-129)
--- NOTE | 2017-09-21 08:11 | CON ---
DATE: 09/20/2017 CARDIOLOGY CONSULTATION REASON FOR THE CONSULTATION: Cardiac evaluation, admitted with CVA, rule out arrhythmia. BRIEF CLINICAL HISTORY: A 56-year-old male with past medical history of hypertension, very noncompliant with medications, he stopped taking medication for 8 to 9 months, admitted with complaint of palpitation since , numbness in both upper and lower extremities and a tingling sensation in the hand. Denies any chest pain, denies any shortness of breath, denies any palpitation; who was admitted with acute CVA, status post TPA was done. PAST MEDICAL HISTORY: Significant for hypertension, very noncompliant to the medication, history of hypertension, was taking medication, but he stopped taking because he thinks it is too strong for him. PAST SURGICAL HISTORY: Significant for inguinal hernia as a child and a repeat inguinal hernia a year ago. FAMILY HISTORY: Noncontributory for coronary artery disease. CURRENT MEDICATIONS: Very noncompliant, supposed to take hypertensive medication, but patient stopped taking thinking that it is too strong for him. ALLERGIES: NO KNOWN DRUG ALLERGIES. PREVIOUS CARDIAC WORKUP: As follows: The patient had stress test done on 05/03/2016, that showed essentially normal myocardial perfusion study, ejection fraction 68%, dated 05/03/2016. Patient had an echocardiography done on 05/02/2016, read by me that shows ejection fraction of 55% with trace aortic regurgitation, [id number] mitral regurgitation, trace tricuspid regurgitation, RV systolic pressure 23 dated 05/02/2016. REVIEW OF SYSTEMS: As per HPI. Negative for chest pain except as per HPI. PHYSICAL EXAMINATION: VITAL SIGNS: Height of the patient is 5 feet 11 inches, weight of the patient is 155 pounds, body mass index 31.7 kg/m2. Rest of the vital signs: Temperature afebrile, heart rate 76, blood pressure 116/44. HEENT: PERRLA, extraocular muscles intact. NECK: Supple. No carotid bruits or thyromegaly. CHEST: Clear to auscultation. HEART: S1, S2 regular. ABDOMEN: Soft. EXTREMITIES: Clubbing and cyanosis negative. BLOOD WORKUP: WBC 6.9, hemoglobin 15, hematocrit 42.4, platelet count 329. Chemistry shows sodium 140, potassium 5, chloride 101, carbon dioxide 28, anion gap of 16, BUN 13, creatinine 0.8. Troponin is 0.02 x2 negative. EKG shows normal sinus with APC. There is no acute ST-T changes noted. IMPRESSION: A 56-year-old male with past medical history significant for hypertension, very noncompliant with medications, admitted with acute cerebrovascular accident, status post TPA was given, history of most recent cardiac workup on 04/2016 essentially normal. Myocardial perfusion study with ejection fraction 68%, history of echo with ejection fraction of 55% in 04/2016, trace mitral regurgitation, trace aortic regurgitation, trace tricuspid regurgitation. On EKG, the patient has APC, and complaining of palpitation, no chest pain. RECOMMENDATIONS: We will start low-dose beta topher, echo to assess LV function suggest bubble study, rule out ASD as recommended by Neurology as well. We will follow up with you. We will get lipid profile, TSH, and hemoglobin A1c. We will follow up with you. Thank you, Dr. Petty/ , for providing us the opportunity in taking care of the patient, Hayder Lindquist. Emory Dean MD
[2017-09-21] MEDS: Multivitamin Therapeutic Tab PO SCH (08:23)
--- NOTE | 2017-09-21 08:40 | CARD ---
APPROVED REPORT EKG Measurement Heart [id number] <Conclusion> Sinus rhythm PVC Voltage criteria for left ventricular hypertrophy Early repolarization
--- NOTE | 2017-09-21 09:33 | CP.PCM.PN ---
Subjective - Date & Time of Evaluation Date of Evaluation: 09/21/17 Time of Evaluation: 09:31 - Subjective Subjective: Neurology Progress Note for Dr. Singletary Patient seen and examined this AM. Overnight patient was noted to have spasms of his scalp. Patient went for stat Head CT which showed no acute findings or hemorrhage. Patient indicates this morning that his presenting symptoms have resolved. Patient denies numbness, tingling, weakness, focal deficits. Patient denies chest pain, shortness of breath, abdominal pain, nausea, vomiting. Objective - Vital Signs/Intake and Output Vital Signs (last 24 hours): Temp Pulse Resp BP Pulse Ox 98.2 F 75 41 H 160/100 H 99 09/21/17 08:00 09/21/17 08:50 09/21/17 08:50 09/21/17 08:01 09/21/17 08:50 Intake and Output: 09/21/17 09/21/17 06:59 18:59 Intake Total 0 0 Output Total 600 300 Balance -600 -300 - Medications Medications: Current Medications Albuterol/Ipratropium (Duoneb 3 Mg/0.5 Mg (3 Ml) Ud) 3 ml IH [id number] PRN PRN Reason: Wheezing Last Admin: 09/20/17 17:45 Dose: 3 ml Arformoterol Tartrate (Brovana) 15 mcg IH [id number] [facility] Atorvastatin Calcium (Lipitor) 40 mg PO DIN [facility] Budesonide (Pulmicort Respules) 1 mg IH [id number] [facility] Folic Acid (Folic Acid) 1 mg PO DAILY [facility] Last Admin: 09/20/17 16:47 Dose: 1 mg Hydralazine HCl (Apresoline) 10 mg IVP Q8H PRN PRN Reason: Systolic Blood Pressure Lorazepam (Ativan) 1 mg IVP Q2 PRN; Protocol PRN Reason: Symptoms of alcohol withdrawl Multivitamins (Thera Tab) 1 tab PO 0800 [facility] Last Admin: 09/21/17 08:23 Dose: 1 tab Nicotine (Nicoderm Cq) 1 patch TD DAILY [facility] Last Admin: 09/20/17 17:48 Dose: 1 patch Thiamine HCl (Vitamin B1 Tab) 100 mg PO DAILY [facility] Last Admin: 09/20/17 16:47 Dose: 100 mg - Labs Labs: 09/21/17 06:00 09/21/17 06:00 PT 10.2 SECONDS (9.4-12.5) 09/20/17 09:16 INR 0.89 (0.93-1.08) L 09/20/17 09:16 APTT 34.4 Seconds (25.1-36.5) 09/20/17 09:16 - Constitutional Appears: No Acute Distress - Head Exam Head Exam: ATRAUMATIC, NORMAL INSPECTION, NORMOCEPHALIC - Eye Exam Eye Exam: EOMI, PERRL - ENT Exam ENT Exam: Mucous Membranes Moist - Neck Exam Neck Exam: Full ROM - Respiratory Exam Respiratory Exam: Clear to Ausculation Bilateral. absent: Wheezes, Respiratory Distress - Cardiovascular Exam Cardiovascular Exam: REGULAR RHYTHM, +S1, +S2 - GI/Abdominal Exam GI & Abdominal Exam: Soft, Normal Bowel Sounds. absent: Tenderness - Extremities Exam Extremities Exam: Full ROM. absent: Pedal Edema, Tenderness - Neurological Exam Neurological Exam: Alert, Awake, CN II-XII Intact, Normal Gait, Oriented x3 Neuro motor strength exam: Left Upper Extremity: 5, Right Upper Extremity: 5, Left Lower Extremity: 5, Right Lower Extremity: 5 Additional comments: Sensory intact - Psychiatric Exam Psychiatric exam: Normal Affect, Normal Mood - Skin Skin Exam: Dry, Intact Assessment and Plan - Assessment and Plan (Free Text) Assessment: 56 year old male with past medical history of HTN, active smoker 1pk per day, presented with bilateral extremity numbness/tingling, and facial numbness, associated with L sided chest pain, and palpitations. Patient is s/p tPA for code stroke. Code Stroke - Presenting symptoms possible for right subcortical infarct - Head CT (09/20/17): No acute intracranial findings, minimal age related diffuse cerebral atrophy - Head Neck CTA(09/20/17): moderate left and mild right cavernous ICA stensis, no arterial occlusion or signficiant stenosis in CT of neck, limited b/l carotid bulbar atherosclerosis - s/p tPA infusion - Head CT w/o contrast(09/21/17): No acute intracranial hemorrhage - Start Lipitor 40mg - MRI brain without contrast, f/u - Echo with bubble study pending - Smoking cessation counseling Case and plan discussed with attending Angie Mcclain PGY-2
--- NOTE | 2017-09-21 09:33 | CARD ---
APPROVED REPORT EKG Measurement Heart [id number] [id number] <Conclusion> Normal sinus rhythm Minimal voltage criteria for LVH, may be normal variant Early repolarization No PVCs c/w ECG 09/20/17
--- NOTE | 2017-09-21 11:08 | CP.CCUPN ---
<Kunal Rowlandy - Last Filed: 09/21/17 12:29> CCU Subjective - Physician Review Subjective (Free Text): Cem Rowland PGY-1 ICU Progress Note for Dr. Anthony Pt was seen and evaluated at bedside. Pt does not have any complaints at this time. He states that his last bowel movement was morning of 7 and was normal. Overnight, pt was complaining of a thumping sensation in the head, which resolved after 1.5 hours. Pt currently denies headache, changes in vision, blurry vision, dizziness, lightheadedness, chest pain, SOB, abdominal pain, diarrhea, nausea, vomiting, paresthesias, numbness, tingling. A 12 point ROS was reviewed and is unremarkable except above. CCU Objective - Vital Signs / Intake & Output Vital Signs (Last 4 hours): Vital Signs Temp Pulse Resp BP Pulse Ox 09/21/17 10:13 63 145/85 09/21/17 10:12 63 145/85 09/21/17 08:50 75 41 H 99 09/21/17 08:40 67 18 97 09/21/17 08:30 81 33 H 96 09/21/17 08:20 76 95 09/21/17 08:10 66 97 09/21/17 08:01 80 45 H 160/100 H 98 09/21/17 08:00 98.2 F 68 21 98 09/21/17 07:50 64 25 H 99 09/21/17 07:40 71 25 H 97 09/21/17 07:34 64 09/21/17 07:30 66 44 H 96 09/21/17 07:20 68 23 95 09/21/17 07:10 73 36 H 96 Intake and Output (Last 8hrs): Intake & Output 09/20/17 09/21/17 09/21/17 22:59 06:59 14:59 Intake Total 500 0 0 Output Total 300 300 300 Balance 200 -300 -300 Weight 155 lb 6.4 oz Intake: Oral 500 0 0 Output: Urine 300 300 300 Urine, Voided 300 300 300 Other: Voiding Method Urinal - Physical Exam Head: Positive for: Atraumatic, Normocephalic Pupils: Positive for: PERRL Extroacular Muscles: Positive for: EOMI Conjunctiva: Positive for: Normal Mouth: Positive for: Moist Mucous Membranes Respiratory/Chest: Positive for: Wheezes (diffuse bilaterally). Negative for: Respiratory Distress Cardiovascular: Positive for: Regular Rate and Rhythm, Normal S1, S2. Negative for: Murmurs, Rub, Gallop Abdomen: Positive for: Normal Bowel Sounds (in all 4 quadrants). Negative for: Tenderness, Distention Upper Extremity: Positive for: Normal Inspection, NORMAL PULSES Lower Extremity: Positive for: Normal Inspection, NORMAL PULSES Neurological: Positive for: GCS=15, CN II-XII Intact, Speech Normal Skin: Positive for: Warm, Dry, Normal Color Psychiatric: Positive for: Alert, Oriented x 3 - Medications Active Medications: Active Medications Generic Name Dose Route Start Last Admin Trade Name Freq PRN Reason Stop Dose Admin Albuterol/Ipratropium 3 ml 09/20/17 17:09 09/20/17 17:45 Duoneb 3 Mg/0.5 Mg (3 Ml) Ud IH 3 ml [id number] PRN Administration Wheezing Arformoterol Tartrate 15 mcg 09/21/17 20:00 Brovana IH [id number] JOSIE Atorvastatin Calcium 40 mg 09/21/17 17:00 Lipitor PO DIN JOSIE Budesonide 1 mg 09/21/17 20:00 Pulmicort Respules IH [id number] JOSIE Folic Acid 1 mg 09/20/17 14:30 09/21/17 10:12 Folic Acid PO 1 mg DAILY JOSIE Administration Hydralazine HCl 10 mg 09/20/17 22:35 Apresoline IVP Q8H PRN Systolic Blood Pressure Lisinopril 10 mg 09/21/17 10:00 09/21/17 10:13 Zestril PO 10 mg DAILY JOSIE Administration Lorazepam 1 mg 09/20/17 14:24 Ativan IVP Q2 PRN Symptoms of alcohol withdrawl Protocol Metoprolol Tartrate 25 mg 09/21/17 10:00 09/21/17 10:12 Lopressor PO 25 mg BID JOSIE Administration Multivitamins 1 tab 09/21/17 08:00 09/21/17 08:23 Thera Tab PO 1 tab 0800 JOSIE Administration Nicotine 1 patch 09/20/17 17:30 09/21/17 10:14 Nicoderm Cq TD 1 patch DAILY JOSIE Administration Thiamine HCl 100 mg 09/20/17 14:30 09/21/17 10:14 Vitamin B1 Tab PO 100 mg DAILY JOSIE Administration - Patient Studies Lab Studies: Lab Studies 09/21/17 09/21/17 09/21/17 Range/Units 06:00 06:00 06:00 WBC 5.8 (4.5-11.0) 10^3/ul RBC 4.08 (3.5-6.1) 10^6/uL Hgb 13.1 L (14.0-18.0) g/dL Hct 38.3 L (42.0-52.0) % MCV 93.9 (80.0-105.0) fl MCH 32.1 (25.0-35.0) pg MCHC 34.2 (31.0-37.0) g/dl RDW 14.4 (11.5-14.5) % Plt Count 266 (120.0-450.0) 10^3/uL MPV 9.2 (7.0-11.0) fl Gran % 59.0 (50.0-68.0) % Lymph % (Auto) 28.2 (22.0-35.0) % [facility] % (Auto) 7.8 H (1.0-6.0) % Eos % (Auto) 4.7 (1.5-5.0) % Baso % (Auto) 0.3 (0.0-3.0) % Gran # 3.39 (1.4-6.5) Lymph # (Auto) 1.6 (1.2-3.4) [facility] # (Auto) 0.5 (0.1-0.6) Eos # (Auto) 0.3 (0.0-0.7) Baso # (Auto) 0.02 (0.0-2.0) K/mm3 Sodium 140 (132-148) mmol/L Potassium 4.6 (3.6-5.0) mmol/L Chloride 105 (98-107) mmol/L Carbon Dioxide 27 (21-33) mmol/L Anion Gap 13 (10-20) BUN 15 (7-21) mg/dL Creatinine 0.7 L (0.8-1.5) mg/dl Est GFR ( Amer) > 60 Est GFR (Non-Af Amer) > 60 Random Glucose 100 (70-110) mg/dL Calcium 8.6 (8.4-10.5) mg/dL Phosphorus 3.1 (2.5-4.5) mg/dL Magnesium 2.0 (1.7-2.2) mg/dL Total Bilirubin 0.6 (0.2-1.3) mg/dL AST 29 (17-59) U/L ALT 22 (7-56) U/L Alkaline Phosphatase 61 (38-126) U/L Troponin I ng/mL Total Protein 6.7 (5.8-8.3) g/dL Albumin 3.9 (3.0-4.8) g/dL Globulin 2.8 gm/dL Albumin/Globulin Ratio 1.4 (1.1-1.8) Triglycerides 184 H (35-160) mg/dL Cholesterol 194 (130-200) mg/dL LDL Cholesterol Direct 109 (0-129) mg/dL HDL Cholesterol 49 (29-60) mg/dL TSH 3rd Generation 1.95 (0.46-4.68) mIU/mL Blood Type Confirm 09/20/17 09/20/17 Range/Units 15:59 11:44 WBC (4.5-11.0) 10^3/ul RBC (3.5-6.1) 10^6/uL Hgb (14.0-18.0) g/dL Hct (42.0-52.0) % MCV (80.0-105.0) fl MCH (25.0-35.0) pg MCHC (31.0-37.0) g/dl RDW (11.5-14.5) % Plt Count (120.0-450.0) 10^3/uL MPV (7.0-11.0) fl Gran % (50.0-68.0) % Lymph % (Auto) (22.0-35.0) % [facility] % (Auto) (1.0-6.0) % Eos % (Auto) (1.5-5.0) % Baso % (Auto) (0.0-3.0) % Gran # (1.4-6.5) Lymph # (Auto) (1.2-3.4) [facility] # (Auto) (0.1-0.6) Eos # (Auto) (0.0-0.7) Baso # (Auto) (0.0-2.0) K/mm3 Sodium (132-148) mmol/L Potassium (3.6-5.0) mmol/L Chloride (98-107) mmol/L Carbon Dioxide (21-33) mmol/L Anion Gap (10-20) BUN (7-21) mg/dL Creatinine (0.8-1.5) mg/dl Est GFR ( Amer) Est GFR (Non-Af Amer) Random Glucose (70-110) mg/dL Calcium (8.4-10.5) mg/dL Phosphorus 3.7 (2.5-4.5) mg/dL Magnesium 1.8 (1.7-2.2) mg/dL Total Bilirubin (0.2-1.3) mg/dL AST (17-59) U/L ALT (7-56) U/L Alkaline Phosphatase (38-126) U/L Troponin I < 0.01 ng/mL Total Protein (5.8-8.3) g/dL Albumin (3.0-4.8) g/dL Globulin gm/dL Albumin/Globulin Ratio (1.1-1.8) Triglycerides (35-160) mg/dL Cholesterol (130-200) mg/dL LDL Cholesterol Direct (0-129) mg/dL HDL Cholesterol (29-60) mg/dL TSH 3rd Generation (0.46-4.68) mIU/mL Blood Type Confirm B POSITIVE Laboratory Results - last 24 hr 09/20/17 09/20/17 09/21/17 11:44 15:59 06:00 WBC 5.8 RBC 4.08 Hgb 13.1 L Hct 38.3 L MCV 93.9 MCH 32.1 MCHC 34.2 RDW 14.4 Plt Count 266 MPV 9.2 Gran % 59.0 Lymph % (Auto) 28.2 [facility] % (Auto) 7.8 H Eos % (Auto) 4.7 Baso % (Auto) 0.3 Gran # 3.39 Lymph # (Auto) 1.6 [facility] # (Auto) 0.5 Eos # (Auto) 0.3 Baso # (Auto) 0.02 Sodium Potassium Chloride Carbon Dioxide Anion Gap BUN Creatinine Est GFR ( Amer) Est GFR (Non-Af Amer) Random Glucose Calcium Phosphorus 3.7 Magnesium 1.8 Total Bilirubin AST ALT Alkaline Phosphatase Troponin I < 0.01 Total Protein Albumin Globulin Albumin/Globulin Ratio Triglycerides Cholesterol LDL Cholesterol Direct HDL Cholesterol TSH 3rd Generation Blood Type Confirm B POSITIVE 09/21/17 09/21/17 06:00 06:00 WBC RBC Hgb Hct MCV MCH MCHC RDW Plt Count MPV Gran % Lymph % (Auto) [facility] % (Auto) Eos % (Auto) Baso % (Auto) Gran # Lymph # (Auto) [facility] # (Auto) Eos # (Auto) Baso # (Auto) Sodium 140 Potassium 4.6 Chloride 105 Carbon Dioxide 27 Anion Gap 13 BUN 15 Creatinine 0.7 L Est GFR ( Amer) > 60 Est GFR (Non-Af Amer) > 60 Random Glucose 100 Calcium 8.6 Phosphorus 3.1 Magnesium 2.0 Total Bilirubin 0.6 AST 29 ALT 22 Alkaline Phosphatase 61 Troponin I Total Protein 6.7 Albumin 3.9 Globulin 2.8 Albumin/Globulin Ratio 1.4 Triglycerides 184 H Cholesterol 194 LDL Cholesterol Direct 109 HDL Cholesterol 49 TSH 3rd Generation 1.95 Blood Type Confirm EKG/Cardiology Studies: Cardiology / EKG Studies 09/21/17 07:00 EKG [ELECTROCARDIOGRAM] Routine Comment: Reason For Exam: palpitations Fingerstick Blood Sugar Results: 67 Review of Systems - Review of Systems All systems: reviewed and no additional remarkable complaints except (as per HPI ) Critical Care Progress Note - Nutrition Nutrition: Nutrition Category Date Time Status Heart Healthy Diet [DIET] Diets 09/20/17 Breakfast Active Assessment/Plan - Assessment and Plan (Free Text) Assessment: This is a 56 year old male with a PMHx of HTN, active smoker 1 PPD, diverticulitis, anxiety, Kidney stones who presented to the ED on 09/20 for numbness and tinging in bilateral lower extremities, associated feeling "cold everywhere" and weakness. Pt also notes experiencing bilateral facial numbness. Head CT, Head/Neck CTA, Chest/Abd/Pelv CTA, EKG, CXR done in ED. Pt was evaluated by neuro in the ED, who agreed on tPA in ED. Pt tolerated tPA well, and hasnt had any complaints in ICU except for "thumping in the head" last night (09/20), Head CT showed no acute intracranial bleed, sinus mucosal disease. Pt is currently asymptomatic and hemodynamically stable. Plan: Neuro: - Monitor for mental status changes - Head CT (09/20) shows No acute intracranial findings as discussed above. Minimal age related diffuse cerebral atrophy identified which appears age appropriate. Follow-up CT or MRI are available if clinically warranted. Head/Neck CTA (09/20) shows Mod. left and mild right cavernous ICA stenoses. Limited bilateral carotid bulbar atherosclerosis. - Neuro recs appreciated Cardio: - Pt is hemodynamically stable - Lopressor BID, Lisinopril QD - EKG (today) shows NSR at 61, minimal criteria for LVH, early repolarization. - Cardio recs appreciated Pulm - Pt is a 1PPD smoker - Maintain SpO2>90 - NC 2L - Duoneb Q6H PRN, Brovana Q12H, Pulmicort Q12H GI: - AST/ALT are WNL - GI recs appreciated Renal: - Maintain euvolemia - Replete electrolytes as needed Endo: - Maintain euglycemia ID: -Pt exhibits no signs of infection Heme: - Pt tolerated tPA well; no signs of bleeding - Hmoglobin and hematocrit are stable Psych: - Nicotine dependance; Nicoderm Cq patch QD - Pt has a history of alcohol abuse; [facility] protocol ordered - Folic acid, Thiamine, Multivitamins - Ativan PRN Dispo: Pt is stable and safe for transfer to med/surg with remote telemetry; PMD is aware and agrees with transfer Case was discussed and reviewed with the attending, Dr. Anthony <Cem Anthony - Last Filed: 09/21/17 12:48> CCU Objective - Vital Signs / Intake & Output Vital Signs (Last 4 hours): Vital Signs Pulse Resp BP Pulse Ox 09/21/17 10:13 63 145/85 09/21/17 10:12 63 145/85 09/21/17 08:50 75 41 H 99 Intake and Output (Last 8hrs): Intake & Output 09/20/17 09/21/17 09/21/17 22:59 06:59 14:59 Intake Total 500 0 0 Output Total 300 300 300 Balance 200 -300 -300 Weight 155 lb 6.4 oz Intake: Oral 500 0 0 Output: Urine 300 300 300 Urine, Voided 300 300 300 Other: Voiding Method Urinal - Medications Active Medications: Active Medications Generic Name Dose Route Start Last Admin Trade Name Freq PRN Reason Stop Dose Admin Albuterol/Ipratropium 3 ml 09/20/17 17:09 09/20/17 17:45 Duoneb 3 Mg/0.5 Mg (3 Ml) Ud IH 3 ml [id number] PRN Administration Wheezing Arformoterol Tartrate 15 mcg 09/21/17 20:00 Brovana IH [id number] JOSIE Atorvastatin Calcium 40 mg 09/21/17 17:00 Lipitor PO DIN JOSIE Budesonide 1 mg 09/21/17 20:00 Pulmicort Respules IH [id number] JOSIE Folic Acid 1 mg 09/20/17 14:30 09/21/17 10:12 Folic Acid PO 1 mg DAILY JOSIE Administration Hydralazine HCl 10 mg 09/20/17 22:35 Apresoline IVP Q8H PRN Systolic Blood Pressure Lisinopril 10 mg 09/21/17 10:00 09/21/17 10:13 Zestril PO 10 mg DAILY JOSIE Administration Lorazepam 1 mg 09/20/17 14:24 Ativan IVP Q2 PRN Symptoms of alcohol withdrawl Protocol Metoprolol Tartrate 25 mg 09/21/17 10:00 09/21/17 10:12 Lopressor PO 25 mg BID JOSIE Administration Multivitamins 1 tab 09/21/17 08:00 09/21/17 08:23 Thera Tab PO 1 tab 0800 JOSIE Administration Nicotine 1 patch 09/20/17 17:30 09/21/17 10:14 Nicoderm Cq TD 1 patch DAILY JOSIE Administration Thiamine HCl 100 mg 09/20/17 14:30 09/21/17 10:14 Vitamin B1 Tab PO 100 mg DAILY JOSIE Administration - Patient Studies Lab Studies: Lab Studies 09/21/17 09/21/17 09/21/17 Range/Units 06:00 06:00 06:00 WBC (4.5-11.0) 10^3/ul RBC (3.5-6.1) 10^6/uL Hgb (14.0-18.0) g/dL Hct (42.0-52.0) % MCV (80.0-105.0) fl MCH (25.0-35.0) pg MCHC (31.0-37.0) g/dl RDW (11.5-14.5) % Plt Count (120.0-450.0) 10^3/uL MPV (7.0-11.0) fl Gran % (50.0-68.0) % Lymph % (Auto) (22.0-35.0) % [facility] % (Auto) (1.0-6.0) % Eos % (Auto) (1.5-5.0) % Baso % (Auto) (0.0-3.0) % Gran # (1.4-6.5) Lymph # (Auto) (1.2-3.4) [facility] # (Auto) (0.1-0.6) Eos # (Auto) (0.0-0.7) Baso # (Auto) (0.0-2.0) K/mm3 Sodium 140 (132-148) mmol/L Potassium 4.6 (3.6-5.0) mmol/L Chloride 105 (98-107) mmol/L Carbon Dioxide 27 (21-33) mmol/L Anion Gap 13 (10-20) BUN 15 (7-21) mg/dL Creatinine 0.7 L (0.8-1.5) mg/dl Est GFR ( Amer) > 60 Est GFR (Non-Af Amer) > 60 Random Glucose 100 (70-110) mg/dL Hemoglobin A1c 5.6 (4.2-6.5) % Calcium 8.6 (8.4-10.5) mg/dL Phosphorus 3.1 (2.5-4.5) mg/dL Magnesium 2.0 (1.7-2.2) mg/dL Total Bilirubin 0.6 (0.2-1.3) mg/dL AST 29 (17-59) U/L ALT 22 (7-56) U/L Alkaline Phosphatase 61 (38-126) U/L Troponin I ng/mL Total Protein 6.7 (5.8-8.3) g/dL Albumin 3.9 (3.0-4.8) g/dL Globulin 2.8 gm/dL Albumin/Globulin Ratio 1.4 (1.1-1.8) Triglycerides 184 H (35-160) mg/dL Cholesterol 194 (130-200) mg/dL LDL Cholesterol Direct 109 (0-129) mg/dL HDL Cholesterol 49 (29-60) mg/dL TSH 3rd Generation 1.95 (0.46-4.68) mIU/mL Blood Type Confirm 09/21/17 09/20/17 09/20/17 Range/Units 06:00 15:59 11:44 WBC 5.8 (4.5-11.0) 10^3/ul RBC 4.08 (3.5-6.1) 10^6/uL Hgb 13.1 L (14.0-18.0) g/dL Hct 38.3 L (42.0-52.0) % MCV 93.9 (80.0-105.0) fl MCH 32.1 (25.0-35.0) pg MCHC 34.2 (31.0-37.0) g/dl RDW 14.4 (11.5-14.5) % Plt Count 266 (120.0-450.0) 10^3/uL MPV 9.2 (7.0-11.0) fl Gran % 59.0 (50.0-68.0) % Lymph % (Auto) 28.2 (22.0-35.0) % [facility] % (Auto) 7.8 H (1.0-6.0) % Eos % (Auto) 4.7 (1.5-5.0) % Baso % (Auto) 0.3 (0.0-3.0) % Gran # 3.39 (1.4-6.5) Lymph # (Auto) 1.6 (1.2-3.4) [facility] # (Auto) 0.5 (0.1-0.6) Eos # (Auto) 0.3 (0.0-0.7) Baso # (Auto) 0.02 (0.0-2.0) K/mm3 Sodium (132-148) mmol/L Potassium (3.6-5.0) mmol/L Chloride (98-107) mmol/L Carbon Dioxide (21-33) mmol/L Anion Gap (10-20) BUN (7-21) mg/dL Creatinine (0.8-1.5) mg/dl Est GFR ( Amer) Est GFR (Non-Af Amer) Random Glucose (70-110) mg/dL Hemoglobin A1c (4.2-6.5) % Calcium (8.4-10.5) mg/dL Phosphorus 3.7 (2.5-4.5) mg/dL Magnesium 1.8 (1.7-2.2) mg/dL Total Bilirubin (0.2-1.3) mg/dL AST (17-59) U/L ALT (7-56) U/L Alkaline Phosphatase (38-126) U/L Troponin I < 0.01 ng/mL Total Protein (5.8-8.3) g/dL Albumin (3.0-4.8) g/dL Globulin gm/dL Albumin/Globulin Ratio (1.1-1.8) Triglycerides (35-160) mg/dL Cholesterol (130-200) mg/dL LDL Cholesterol Direct (0-129) mg/dL HDL Cholesterol (29-60) mg/dL TSH 3rd Generation (0.46-4.68) mIU/mL Blood Type Confirm B POSITIVE Laboratory Results - last 24 hr 09/20/17 09/20/17 09/21/17 11:44 15:59 06:00 WBC 5.8 RBC 4.08 Hgb 13.1 L Hct 38.3 L MCV 93.9 MCH 32.1 MCHC 34.2 RDW 14.4 Plt Count 266 MPV 9.2 Gran % 59.0 Lymph % (Auto) 28.2 [facility] % (Auto) 7.8 H Eos % (Auto) 4.7 Baso % (Auto) 0.3 Gran # 3.39 Lymph # (Auto) 1.6 [facility] # (Auto) 0.5 Eos # (Auto) 0.3 Baso # (Auto) 0.02 Sodium Potassium Chloride Carbon Dioxide Anion Gap BUN Creatinine Est GFR ( Amer) Est GFR (Non-Af Amer) Random Glucose Hemoglobin A1c Calcium Phosphorus 3.7 Magnesium 1.8 Total Bilirubin AST ALT Alkaline Phosphatase Troponin I < 0.01 Total Protein Albumin Globulin Albumin/Globulin Ratio Triglycerides Cholesterol LDL Cholesterol Direct HDL Cholesterol TSH 3rd Generation Blood Type Confirm B POSITIVE 09/21/17 09/21/17 09/21/17 06:00 06:00 06:00 WBC RBC Hgb Hct MCV MCH MCHC RDW Plt Count MPV Gran % Lymph % (Auto) [facility] % (Auto) Eos % (Auto) Baso % (Auto) Gran # Lymph # (Auto) [facility] # (Auto) Eos # (Auto) Baso # (Auto) Sodium 140 Potassium 4.6 Chloride 105 Carbon Dioxide 27 Anion Gap 13 BUN 15 Creatinine 0.7 L Est GFR ( Amer) > 60 Est GFR (Non-Af Amer) > 60 Random Glucose 100 Hemoglobin A1c 5.6 Calcium 8.6 Phosphorus 3.1 Magnesium 2.0 Total Bilirubin 0.6 AST 29 ALT 22 Alkaline Phosphatase 61 Troponin I Total Protein 6.7 Albumin 3.9 Globulin 2.8 Albumin/Globulin Ratio 1.4 Triglycerides 184 H Cholesterol 194 LDL Cholesterol Direct 109 HDL Cholesterol 49 TSH 3rd Generation 1.95 Blood Type Confirm EKG/Cardiology Studies: Cardiology / EKG Studies 09/21/17 07:00 EKG [ELECTROCARDIOGRAM] Routine Comment: Reason For Exam: palpitations Critical Care Progress Note - Nutrition Nutrition: Nutrition Category Date Time Status Heart Healthy Diet [DIET] Diets 09/20/17 Breakfast Active Assessment/Plan - Assessment and Plan (Free Text) Plan: Patient seen and examined on rounds with resident, agree with note with following additions/exceptions: Patient is 56yo male with PMhx of smoking, HTN, presented with numbness tingling of the extremities s/p tPA Afebrile, BP stable, non focal neuro exam Symptoms have now resolved. repeat CTH negative for acute pathology, doing well. No major complaints Obtain ECHO, MRI Brain, follow up neurology, TSH, Lipid Panel Duonebs PRN Nicotine Patch Transfer to telemetry
--- NOTE | 2017-09-21 14:45 | CP.PCM.CON ---
<Chacorta Santos - Last Filed: 09/21/17 14:34> History of Present Illness - History of Present Illness History of Present Illness: GI Consult Note for Dr. Medina Service Chacorta Tom, PGY-3 IM This is a 56 yo M with PMH of HTN, COPD, diverticulitis, inguinal hernia, and alcohol/tobacco abuse presenting to ED with complaint of numbness and tingling in his lower extremities bilaterally along with numbness in his face, thought to be possible stroke and treated with tPA. GI was consulted due to signs of diverticulitis and sigmoid colon mass on CTA chest/abd/pelvis. As per GI attending, Dr. Medina, patient well known to him, known to have serrated adenoma with high risk for malignant transformation. Was instructed to follow up with Surgery as an outpatient, but patient never did. Patient reports unable to follow up with anyone due to losing insurance, trying to regain. Denies any acute GI symptoms, including nausea, emesis, abd pain, diarrhea, constipation. Denies fevers, chills, chest pain, shortness of breath. Does report occasionally noting blood in toilet bowel and/or when wiping, intermittently, always small amount. Denies passing clots. Denies night sweats , unintentional weight loss, PO intolerance, or extended lack of BM/flatus. All other ROS in 12-system review negative. PMH: as above PSH: hernia repair as child Fam Hx: pt unaware of family hx Social Hx: active tobacco (cigarettes, 1+ppd for > 40 yrs), drinks 7-9 beers daily, denies illicits/IVDA PMD: Dr. Petty previously, none since losing insurance Review of Systems - Review of Systems All systems: reviewed and no additional remarkable complaints except (as per HPI ) Past Patient History - Infectious Disease Hx of Infectious Diseases: None - Past Medical History & Family History Past Medical History?: Yes - Past Social History Smoking Status: Current Some Days Smoker - CARDIAC Hx Cardiac Disorders: Yes Hx Hypertension: Yes - PULMONARY Hx Respiratory Disorders: No - NEUROLOGICAL Hx Neurological Disorder: No - HEENT Hx HEENT Problems: No - RENAL Hx Kidney Stones: Yes - ENDOCRINE/METABOLIC Hx Endocrine Disorders: No - HEMATOLOGICAL/ONCOLOGICAL Hx Blood Transfusions: No Hx Blood Transfusion Reaction: No - INTEGUMENTARY Hx Dermatological Problems: No - MUSCULOSKELETAL/RHEUMATOLOGICAL Hx Falls: No - GASTROINTESTINAL Other/Comment: inguinal hernia repair - GENITOURINARY/GYNECOLOGICAL Hx Genitourinary Disorders: No - PSYCHIATRIC Hx Anxiety: Yes Hx Substance Use: No - SURGICAL HISTORY Other/Comment: L INGUINAL HERNIA REPAIR as a child - ANESTHESIA Hx Anesthesia Reactions: No Hx Malignant Hyperthermia: No Meds Allergies/Adverse Reactions: Allergies Allergy/AdvReac Type Severity Reaction Status Date / Time No Known Allergies Allergy Verified 09/20/17 08:59 - Medications Medications: Current Medications Albuterol/Ipratropium (Duoneb 3 Mg/0.5 Mg (3 Ml) Ud) 3 ml IH [id number] PRN PRN Reason: Wheezing Last Admin: 09/20/17 17:45 Dose: 3 ml Arformoterol Tartrate (Brovana) 15 mcg IH [id number] [facility] Atorvastatin Calcium (Lipitor) 40 mg PO DIN [facility] Budesonide (Pulmicort Respules) 1 mg IH [id number] [facility] Folic Acid (Folic Acid) 1 mg PO DAILY [facility] Last Admin: 09/21/17 10:12 Dose: 1 mg Hydralazine HCl (Apresoline) 10 mg IVP Q8H PRN PRN Reason: Systolic Blood Pressure Lisinopril (Zestril) 10 mg PO DAILY [facility] Last Admin: 09/21/17 10:13 Dose: 10 mg Lorazepam (Ativan) 1 mg IVP Q2 PRN; Protocol PRN Reason: Symptoms of alcohol withdrawl Metoprolol Tartrate (Lopressor) 25 mg PO BID [facility] Last Admin: 09/21/17 10:12 Dose: 25 mg Multivitamins (Thera Tab) 1 tab PO 0800 [facility] Last Admin: 09/21/17 08:23 Dose: 1 tab Nicotine (Nicoderm Cq) 1 patch TD DAILY [facility] Last Admin: 09/21/17 10:14 Dose: 1 patch Thiamine HCl (Vitamin B1 Tab) 100 mg PO DAILY [facility] Last Admin: 09/21/17 10:14 Dose: 100 mg Physical Exam - Constitutional Appears: Non-toxic, No Acute Distress, Chronically Ill - Head Exam Head Exam: ATRAUMATIC, NORMAL INSPECTION, NORMOCEPHALIC - Eye Exam Eye Exam: EOMI, Normal appearance. absent: Conjunctival injection, Scleral icterus Pupil Exam: absent: Fixed, Irregular - ENT Exam ENT Exam: Mucous Membranes Moist. absent: Mucous Membranes Dry - Neck Exam Neck exam: Positive for: Full Rom, Normal Inspection - Respiratory Exam Respiratory Exam: Decreased Breath Sounds (mild-moderate decreased breath sounds in all [place]), Prolonged Expiratory Phase, Wheezes (mild inspiratory wheezes heard in bilateral upper [place], diffuse moderate end-expiratory wheezes appreciated in all [place]), NORMAL BREATHING PATTERN. absent: Accessory Muscle Use, Chest Wall Tenderness, Clear to Auscultation Bilateral, Rales, Rhonchi, Respiratory Distress, Stridor - Cardiovascular Exam Cardiovascular Exam: Tachycardia, REGULAR RHYTHM, +S1, +S2. absent: Bradycardia , Irregular Rhythm, JVD, RRR, +S4 - GI/Abdominal Exam GI & Abdominal Exam: Normal Bowel Sounds, Soft. absent: Diminished Bowel Sounds , Distended, Firm, Guarding, Hernia, Hyperactive Bowel Sounds, Hypoactive Bowel Sounds, Rigid, Tenderness - Extremities Exam Extremities exam: Positive for: normal inspection. Negative for: calf tenderness, pedal edema - Back Exam Back exam: absent: CVA tenderness (L), CVA tenderness (R) - Neurological Exam Additional comments: awake and alert, following all commands, moving all extremities spontaneously - Psychiatric Exam Psychiatric exam: Normal Affect, Normal Mood - Skin Skin Exam: Dry, Intact, Normal Color, Warm Results - Vital Signs Recent Vital Signs: Last Vital Signs Temp 98.2 F 09/21/17 08:00 Pulse 63 09/21/17 10:13 Resp 41 H 09/21/17 08:50 BP 145/85 09/21/17 10:13 Pulse Ox 99 09/21/17 08:50 - Labs Result Diagrams: 09/21/17 06:00 09/21/17 06:00 Labs: Laboratory Results - last 24 hr 09/20/17 09/21/17 09/21/17 15:59 06:00 06:00 WBC 5.8 RBC 4.08 Hgb 13.1 L Hct 38.3 L MCV 93.9 MCH 32.1 MCHC 34.2 RDW 14.4 Plt Count 266 MPV 9.2 Gran % 59.0 Lymph % (Auto) 28.2 Frontier % (Auto) 7.8 H Eos % (Auto) 4.7 Baso % (Auto) 0.3 Gran # 3.39 Lymph # (Auto) 1.6 Frontier # (Auto) 0.5 Eos # (Auto) 0.3 Baso # (Auto) 0.02 Sodium 140 Potassium 4.6 Chloride 105 Carbon Dioxide 27 Anion Gap 13 BUN 15 Creatinine 0.7 L Est GFR ( Amer) > 60 Est GFR (Non-Af Amer) > 60 Random Glucose 100 Hemoglobin A1c Calcium 8.6 Phosphorus 3.7 3.1 Magnesium 1.8 2.0 Total Bilirubin 0.6 AST 29 ALT 22 Alkaline Phosphatase 61 Troponin I < 0.01 Total Protein 6.7 Albumin 3.9 Globulin 2.8 Albumin/Globulin Ratio 1.4 Triglycerides 184 H Cholesterol 194 LDL Cholesterol Direct 109 HDL Cholesterol 49 TSH 3rd Generation 09/21/17 09/21/17 06:00 06:00 WBC RBC Hgb Hct MCV MCH MCHC RDW Plt Count MPV Gran % Lymph % (Auto) Frontier % (Auto) Eos % (Auto) Baso % (Auto) Gran # Lymph # (Auto) Frontier # (Auto) Eos # (Auto) Baso # (Auto) Sodium Potassium Chloride Carbon Dioxide Anion Gap BUN Creatinine Est GFR ( Amer) Est GFR (Non-Af Amer) Random Glucose Hemoglobin A1c 5.6 Calcium Phosphorus Magnesium Total Bilirubin AST ALT Alkaline Phosphatase Troponin I Total Protein Albumin Globulin Albumin/Globulin Ratio Triglycerides Cholesterol LDL Cholesterol Direct HDL Cholesterol TSH 3rd Generation 1.95 Assessment & Plan - Assessment and Plan (Free Text) Assessment: This is a 56 yo M with PMH of HTN, COPD, diverticulitis, inguinal hernia, and alcohol/tobacco abuse presenting to ED with complaint of numbness and tingling in his lower extremities bilaterally along with numbness in his face, thought to be possible stroke and treated with tPA. GI was consulted due to signs of diverticulitis and sigmoid colon mass on CTA chest/abd/pelvis. Plan: HTN COPD extensive colonic diverticulosis with recurrent diverticulitis, sigmoid colon mass on CT, hx serrated adenoma hx inguinal hernia alcohol/tobacco abuse TIA vs CVA s/p tPA -Patient is known well to GI attending, was instructed to follow up with surgery as surgical resection remains primary tx option, but patient non- compliant with follow-up -At this time, would recommend surgical consult, appreciated their input -Can trial clear liquids for now, avoid more solid foods given diverticulosis -PPI for GI ppx given tPA use Patient reviewed and discussed with attending, Dr. Medina <Arminda Medina V - Last Filed: 09/21/17 23:36> Meds - Medications Medications: Current Medications Albuterol/Ipratropium (Duoneb 3 Mg/0.5 Mg (3 Ml) Ud) 3 ml IH [id number] PRN PRN Reason: Wheezing Last Admin: 09/20/17 17:45 Dose: 3 ml Arformoterol Tartrate (Brovana) 15 mcg IH [id number] [facility] Last Admin: 09/21/17 20:13 Dose: 15 mcg Atorvastatin Calcium (Lipitor) 40 mg PO DIN [facility] Last Admin: 09/21/17 17:01 Dose: 40 mg Budesonide (Pulmicort Respules) 1 mg IH [id number] [facility] Last Admin: 09/21/17 20:13 Dose: 1 mg Folic Acid (Folic Acid) 1 mg PO DAILY [facility] Last Admin: 09/21/17 10:12 Dose: 1 mg Hydralazine HCl (Apresoline) 10 mg IVP Q8H PRN PRN Reason: Systolic Blood Pressure Lisinopril (Zestril) 10 mg PO DAILY [facility] Last Admin: 09/21/17 10:13 Dose: 10 mg Lorazepam (Ativan) 1 mg IVP Q2 PRN; Protocol PRN Reason: Symptoms of alcohol withdrawl Metoprolol Tartrate (Lopressor) 25 mg PO BID [facility] Last Admin: 09/21/17 17:01 Dose: 25 mg Multivitamins (Thera Tab) 1 tab PO 0800 [facility] Last Admin: 09/21/17 08:23 Dose: 1 tab Nicotine (Nicoderm Cq) 1 patch TD DAILY [facility] Last Admin: 09/21/17 10:14 Dose: 1 patch Thiamine HCl (Vitamin B1 Tab) 100 mg PO DAILY [facility] Last Admin: 09/21/17 10:14 Dose: 100 mg Results - Vital Signs Recent Vital Signs: Last Vital Signs Temp 98.2 F 09/21/17 08:00 Pulse 75 09/21/17 17:36 Resp 23 09/21/17 17:20 BP 125/75 09/21/17 17:01 Pulse Ox 99 09/21/17 08:50 - Labs Result Diagrams: 09/21/17 06:00 09/21/17 06:00 Labs: Laboratory Results - last 24 hr 09/21/17 09/21/17 09/21/17 06:00 06:00 06:00 WBC 5.8 RBC 4.08 Hgb 13.1 L Hct 38.3 L MCV 93.9 MCH 32.1 MCHC 34.2 RDW 14.4 Plt Count 266 MPV 9.2 Gran % 59.0 Lymph % (Auto) 28.2 Frontier % (Auto) 7.8 H Eos % (Auto) 4.7 Baso % (Auto) 0.3 Gran # 3.39 Lymph # (Auto) 1.6 Frontier # (Auto) 0.5 Eos # (Auto) 0.3 Baso # (Auto) 0.02 Sodium 140 Potassium 4.6 Chloride 105 Carbon Dioxide 27 Anion Gap 13 BUN 15 Creatinine 0.7 L Est GFR ( Amer) > 60 Est GFR (Non-Af Amer) > 60 Random Glucose 100 Hemoglobin A1c 5.6 Calcium 8.6 Phosphorus 3.1 Magnesium 2.0 Total Bilirubin 0.6 AST 29 ALT 22 Alkaline Phosphatase 61 Total Protein 6.7 Albumin 3.9 Globulin 2.8 Albumin/Globulin Ratio 1.4 Triglycerides 184 H Cholesterol 194 LDL Cholesterol Direct 109 HDL Cholesterol 49 TSH 3rd Generation 09/21/17 06:00 WBC RBC Hgb Hct MCV MCH MCHC RDW Plt Count MPV Gran % Lymph % (Auto) Frontier % (Auto) Eos % (Auto) Baso % (Auto) Gran # Lymph # (Auto) Frontier # (Auto) Eos # (Auto) Baso # (Auto) Sodium Potassium Chloride Carbon Dioxide Anion Gap BUN Creatinine Est GFR ( Amer) Est GFR (Non-Af Amer) Random Glucose Hemoglobin A1c Calcium Phosphorus Magnesium Total Bilirubin AST ALT Alkaline Phosphatase Total Protein Albumin Globulin Albumin/Globulin Ratio Triglycerides Cholesterol LDL Cholesterol Direct HDL Cholesterol TSH 3rd Generation 1.95 Attending/Attestation - Attestation I have personally seen and examined this patient.: Yes I have fully participated in the care of the patient.: Yes I have reviewed all pertinent clinical information: Yes Notes (Text): afua 09/21/17 23:36
--- NOTE | 2017-09-21 14:47 | CP.PCM.PN ---
<EscalonaJony L - Last Filed: 09/21/17 21:50> Subjective - Date & Time of Evaluation Date of Evaluation: 09/21/17 Time of Evaluation: 07:30 - Subjective Subjective: Patient seen and examined at bedside. Overnight events include an episode of facial tingling localized to the right side of his face. Patient states this morning that his symptoms have resolved with no acute intervention. Offers no new complaints at this time. States that baseline numbness and tingling have also resolved. Denies headache, changes in vision, chest pain, palpitations, SOB, abd pain, N/V, or any other focal neurological deficits. A 12 point review of systems was negative except as indicated in HPI. Objective - Vital Signs/Intake and Output Vital Signs (last 24 hours): Temp Pulse Resp BP Pulse Ox 98.2 F 63 41 H 145/85 99 09/21/17 08:00 09/21/17 10:13 09/21/17 08:50 09/21/17 10:13 09/21/17 08:50 Intake and Output: 09/21/17 09/21/17 06:59 18:59 Intake Total 0 0 Output Total 600 300 Balance -600 -300 - Medications Medications: Current Medications Albuterol/Ipratropium (Duoneb 3 Mg/0.5 Mg (3 Ml) Ud) 3 ml IH [id number] PRN PRN Reason: Wheezing Last Admin: 09/20/17 17:45 Dose: 3 ml Arformoterol Tartrate (Brovana) 15 mcg IH [id number] [facility] Atorvastatin Calcium (Lipitor) 40 mg PO DIN [facility] Budesonide (Pulmicort Respules) 1 mg IH [id number] [facility] Folic Acid (Folic Acid) 1 mg PO DAILY [facility] Last Admin: 09/21/17 10:12 Dose: 1 mg Hydralazine HCl (Apresoline) 10 mg IVP Q8H PRN PRN Reason: Systolic Blood Pressure Lisinopril (Zestril) 10 mg PO DAILY [facility] Last Admin: 09/21/17 10:13 Dose: 10 mg Lorazepam (Ativan) 1 mg IVP Q2 PRN; Protocol PRN Reason: Symptoms of alcohol withdrawl Metoprolol Tartrate (Lopressor) 25 mg PO BID [facility] Last Admin: 09/21/17 10:12 Dose: 25 mg Multivitamins (Thera Tab) 1 tab PO 0800 [facility] Last Admin: 09/21/17 08:23 Dose: 1 tab Nicotine (Nicoderm Cq) 1 patch TD DAILY [facility] Last Admin: 09/21/17 10:14 Dose: 1 patch Thiamine HCl (Vitamin B1 Tab) 100 mg PO DAILY [facility] Last Admin: 09/21/17 10:14 Dose: 100 mg - Labs Labs: 09/21/17 06:00 09/21/17 06:00 PT 10.2 SECONDS (9.4-12.5) 09/20/17 09:16 INR 0.89 (0.93-1.08) L 09/20/17 09:16 APTT 34.4 Seconds (25.1-36.5) 09/20/17 09:16 - Additional Findings Additional findings: - Eye Exam Eye Exam: EOMI, Normal appearance, PERRL - ENT Exam ENT Exam: Mucous Membranes Moist, Normal Exam - Neck Exam Neck exam: Positive for: Full Rom, Normal Inspection - Respiratory Exam Respiratory Exam: Decreased breath sounds, NORMAL BREATHING PATTERN. absent: Rales, Rhonchi, Wheezes - Cardiovascular Exam Cardiovascular Exam: REGULAR RHYTHM, +S1, +S2 normal. absent: Diastolic murmur , Gallop, Rubs, Systolic Murmur - GI/Abdominal Exam GI & Abdominal Exam: Normal Bowel Sounds, Soft. absent: Distended, Mass, Organomegaly, Rebound, Tenderness - Rectal Exam Rectal Exam: Deferred - Extremities Exam Extremities exam: Positive for: full ROM, normal inspection - Back Exam Back exam: NORMAL INSPECTION - Neurological Exam Neurological exam: Alert, CN II-XII Intact, Oriented x3 Additional comments: AAO x3. Muscle strength +5/5. No dysmetria. NIH stroke scale 0. - Psychiatric Exam Psychiatric exam: Normal Affect, Normal Mood - Skin Skin Exam: Dry, Intact, Normal Color Assessment and Plan - Assessment and Plan (Free Text) Assessment: Patient is a 57 yo m with PMH admitted for evalution and treatment of numbness and tingling. Patient was given tPA in ED. Patient is now s/p tPA and was monitored in ICU for 24 hours. Paresthesias - Possibly due to CVA - tPA administered in ED - CT head from yesterday shows no acute intracranial findings. - Chest/Abd/Pelvis CTA shows no evidence of aortic dissection, aortic aneurysm, PE. - Head/Neck CTA shows moderate left and mild right cavernous ICA stenoses. No arterial occlusion or significant stenosis in the neck. - Head CT negative for acute findings - Brain MRI w/o contrast recommended shows no evidence of acute intracranial hemorrhage or infarct - EKG shows sinus rhythm - Possibly right subcortical infarct per neurology consult - Multivitamin - NIH stroke scale 0 Palpitations - Resolving - Magnesium, phosphorus levels normal - Cardiology consult. Recs appreciated. - Metoprolol 25 mg PO BID and lisinopril 10 mg PO QD - Atorvastatin 40 mg PO DIN - ECHO with bubble study to rule out ASD Diverticulosis - History of recurrent diverticulitis. Patient non complaint with follow up in the past per GI consult - CTA shows severe circumferential mural thickening in sigmoid colon which may represent acute diverticulitis - Surgery consult Hypertension - Permissive hypertension - Troponin neg x2 - TSH normal - Triglycerides elevated at 184 - Hgba1c 5.6 - Hydralazine 10 mg IV PRN - Continue monitoring COPD - Duonebs PRN - Brovana - Pulmicort Alcohol abuse - Concern for withdrawal. Patient placed on CIWA protocol. - Thiamine, folic acid, ativan PRN - Counseling provided Tobacco abuse - Nicotine patch 1 patch TD daily - Counseling provided DVT/GI prophylaxis - DVT: SCDs - GI: not indicated at this time Case seen and discussed with Dr. Abdiaziz Escalona PGY 1 Resident Note <Briseyda Hernandez - Last Filed: 09/22/17 16:41> Objective - Vital Signs/Intake and Output Vital Signs (last 24 hours): Temp Pulse Resp BP Pulse Ox 98 F 72 28 H 179/101 H 98 09/22/17 12:00 09/22/17 13:55 09/22/17 13:55 09/22/17 14:41 09/22/17 04:00 Intake and Output: 09/22/17 09/22/17 06:59 18:59 Intake Total 270 Output Total 600 Balance -330 - Labs Labs: 09/22/17 05:30 09/22/17 05:30 PT 10.2 SECONDS (9.4-12.5) 09/20/17 09:16 INR 0.89 (0.93-1.08) L 09/20/17 09:16 APTT 34.4 Seconds (25.1-36.5) 09/20/17 09:16 Attending/Attestation - Attestation I have personally seen and examined this patient.: Yes I have fully participated in the care of the patient.: Yes I have reviewed all pertinent clinical information, including history, physical exam and plan: Yes Notes (Text): Patient seen and examined by me at 9:30AM 09/21/17 with resident at bedside. Case including physical assessment and plan discussed in detail with resident. Agree with above with following additions/changes. Patient states that he is feeling much better today. All symptoms resolved. No chest pain. No tingling and numbness. Patient states that he had an episode of throbbing in his head for a few minutes overnight. Resolved. No shortness of breath. No headaches or dizziness. No change in vision. No extremity weakness. No chest pain or palpitations. No fevers or chills. No nausea, vomiting, or abdominal pain. No dysuria. Physical exam: Gen: Patient is awake and alert lying in bed in no acute distress HEENT: Normocephalic atraumatic. extraocular muscles intact. Pupils equal and reactive. Oropharynx is pink and moist. No pharyngeal erythema or exudate appreciated. Neck is supple. Pulmonary: Normal respiratory effort. No rhonchi, rales, or wheezing appreciated Cardiovascular: Normal rhythm. Normal S1 and S2. No murmurs or gallops appreciated. Gastrointestinal: Soft, nontender, nondistended. Positive bowel sounds all 4 quadrants. No guarding. Musculoskeletal: Normal range of motion all extremities. No calf tenderness. No CVA tenderness. Vascular: 2+ peripheral pulses upper and lower extremities Central nervous system: AAO 3. Cranial nerves 2-12 grossly intact. 5 out of 5 muscle strength all extremities. Sensation intact. No dysarthria. No facial droop. NIH stroke scale score 0 Dermatologic: Skin warm and dry Assessment and plan: Patient is a 56-year-old male who presented to the emergency room chest palpitations and tingling and numbness in bilateral extremities and numbness in the face. Patient was treated with TPA in the emergency room. 1. Numbness and tingling in the extremities. Resolved. Rule out CVA. Repeat CT head does not show any acute intracranial abnormality. MRI brain pending. Patient is status post TPA in the emergency room. Neurology following, recommendations appreciated. Echo per patents examiner shows normal chamber with EF of 55%, trace MR/TR, the interatrial septum is intact with no evidence for an atrial septal defect by bolus study. Monitor vital signs. No signs of bleeding. Patient can be transferred up to telemetry. 2. Chest palpitations. Resolved. Cardiology consulted, recommendations appreciated. 2-D echo as above. Troponin within normal limits. Hemoglobin A1c 5.6. TSH within normal limits. Slightly elevated triglycerides. Patient advised diet and exercise 3. Hypertension. Started on lisinopril and metoprolol. 4. Alcohol abuse. Patient counseled on cessation. Continue CIWA protocol. Continue thiamine and folic acid. Monitor for any withdrawal symptoms. Patient does not want to quit 5. Tobacco abuse. Counseled on Cessation. Patient does not want to quit 6. Patient is a full code 7. DVT prophylaxis: Bilateral SCDs Case was discussed in detail with patient and patient's at bedside regarding current diagnosis and treatment plan.
--- NOTE | 2017-09-21 14:54 | MRI ---
PROCEDURE: MRI BRAIN WITHOUT CONTRAST HISTORY: Code stroke COMPARISON: Comparison made with prior CT scan and CTA brain both dated 09/20/2017. TECHNIQUE: Multiplanar, multisequence MR images of the brain were obtained without intravenous contrast enhancement. FINDINGS: HEMORRHAGE: No acute parenchymal, subarachnoid nor extra-axial hemorrhage. No evidence hemosiderin deposition identified on the sequence. DWI: No evidence of an acute or early subacute infarction seen on diffusion imaging. . BRAIN PARENCHYMA: No mass effect or edema. No atrophy or chronic microvascular ischemic changes. No obvious parenchymal nor extra-axial mass or collection seen on this noncontrast study. Ventricular and sulcal size are within range of normal this patient's stated age. VENTRICLES: No obstructive hydrocephalus. CRANIUM: Unremarkable. ORBITS: Grossly unremarkable. PARANASAL SINUSES/MASTOIDS: Mild moderate mucosal thickening seen within the ethmoid air complex extending superiorly into frontal sinus. There may also be some minimal mucosal thickening inferior margin both maxillary antra as well. Minimal mucosal thickening sphenoid sinus antrum with tiny focus polypoid like mucosal thickening floor of left chamber of the sphenoid sinus VASCULAR SYSTEM: Visualized major vascular flow voids at skull base patent. OTHER FINDINGS: None. IMPRESSION: No evidence of acute intracranial hemorrhage or infarct.
--- NOTE | 2017-09-21 15:37 | CP.PCM.CON ---
History of Present Illness - History of Present Illness History of Present Illness: General Surgery Consult for Dr. Faustin 54 yr old male with PMH of HTN COPD (smoking 1.5 ppd), alcohol abuse (7-8 beers daily) who presents with a history of large polypoid lesions and large flat polyps found in Left colon on colonoscopy in June [address] Crawford with pathology confirming serrated adenoma. Patient came to Er yesterday for numbness and tingling in his face as well as palpitations. Patient received tPa , CT head was unremarkable, CT abd/pelvis revealed incidental finding of sigmoid thickening, diverticulosis and possible phlegmon/developing abcess without exclusion of malignancy. Mr. Dow indicates that he had a colonoscopy last year and was referred to a surgeon for evaluation but was unable to follow up because he lost his insurance coverage. He admits to regular blood in his stool, sometimes mixed in, sometimes coating the stool. He indicates a history of hemorrhoids. He denies any chest pain, headache, tingling, numbness, SOB, abdominal pain, difficulty passing stool, constipation nausea ,vomiting and diarrhea. 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 Allergies: NKDA Past Patient History - Infectious Disease Hx of Infectious Diseases: None - Past Medical History & Family History Past Medical History?: Yes - Past Social History Smoking Status: Current Some Days Smoker - CARDIAC Hx Cardiac Disorders: Yes Hx Hypertension: Yes - PULMONARY Hx Respiratory Disorders: No - NEUROLOGICAL Hx Neurological Disorder: No - HEENT Hx HEENT Problems: No - RENAL Hx Kidney Stones: Yes - ENDOCRINE/METABOLIC Hx Endocrine Disorders: No - HEMATOLOGICAL/ONCOLOGICAL Hx Blood Transfusions: No Hx Blood Transfusion Reaction: No - INTEGUMENTARY Hx Dermatological Problems: No - MUSCULOSKELETAL/RHEUMATOLOGICAL Hx Falls: No - GASTROINTESTINAL Other/Comment: inguinal hernia repair - GENITOURINARY/GYNECOLOGICAL Hx Genitourinary Disorders: No - PSYCHIATRIC Hx Anxiety: Yes Hx Substance Use: No - SURGICAL HISTORY Other/Comment: L INGUINAL HERNIA REPAIR as a child - ANESTHESIA Hx Anesthesia Reactions: No Hx Malignant Hyperthermia: No Meds Allergies/Adverse Reactions: Allergies Allergy/AdvReac Type Severity Reaction Status Date / Time No Known Allergies Allergy Verified 09/20/17 08:59 - Medications Medications: Current Medications Albuterol/Ipratropium (Duoneb 3 Mg/0.5 Mg (3 Ml) Ud) 3 ml IH [id number] PRN PRN Reason: Wheezing Last Admin: 09/20/17 17:45 Dose: 3 ml Arformoterol Tartrate (Brovana) 15 mcg IH [id number] [facility] Atorvastatin Calcium (Lipitor) 40 mg PO DIN [facility] Budesonide (Pulmicort Respules) 1 mg IH [id number] [facility] Folic Acid (Folic Acid) 1 mg PO DAILY [facility] Last Admin: 09/21/17 10:12 Dose: 1 mg Hydralazine HCl (Apresoline) 10 mg IVP Q8H PRN PRN Reason: Systolic Blood Pressure Lisinopril (Zestril) 10 mg PO DAILY [facility] Last Admin: 09/21/17 10:13 Dose: 10 mg Lorazepam (Ativan) 1 mg IVP Q2 PRN; Protocol PRN Reason: Symptoms of alcohol withdrawl Metoprolol Tartrate (Lopressor) 25 mg PO BID [facility] Last Admin: 09/21/17 10:12 Dose: 25 mg Multivitamins (Thera Tab) 1 tab PO 0800 [facility] Last Admin: 09/21/17 08:23 Dose: 1 tab Nicotine (Nicoderm Cq) 1 patch TD DAILY [facility] Last Admin: 09/21/17 10:14 Dose: 1 patch Thiamine HCl (Vitamin B1 Tab) 100 mg PO DAILY [facility] Last Admin: 09/21/17 10:14 Dose: 100 mg Physical Exam - Constitutional Appears: Well, Non-toxic, No Acute Distress - Head Exam Head Exam: ATRAUMATIC, NORMOCEPHALIC - ENT Exam ENT Exam: Mucous Membranes Moist - Respiratory Exam Respiratory Exam: Wheezes, NORMAL BREATHING PATTERN - Cardiovascular Exam Cardiovascular Exam: REGULAR RHYTHM - GI/Abdominal Exam GI & Abdominal Exam: Hernia, Soft. absent: Distended, Guarding, Mass, Rebound, Rigid, Tenderness - Rectal Exam Rectal Exam: Hemorrhoids. absent: Black Stool, Bloody Stool, Fecal Impaction Additional comments: appropriate sphincter tone, no masses palpated, no gross blood on exam Results - Vital Signs Recent Vital Signs: Last Vital Signs Temp 98.2 F 09/21/17 08:00 Pulse 63 09/21/17 10:13 Resp 41 H 09/21/17 08:50 BP 145/85 09/21/17 10:13 Pulse Ox 99 09/21/17 08:50 - Labs Result Diagrams: 09/21/17 06:00 09/21/17 06:00 Labs: Laboratory Results - last 24 hr 09/20/17 09/21/17 09/21/17 15:59 06:00 06:00 WBC 5.8 RBC 4.08 Hgb 13.1 L Hct 38.3 L MCV 93.9 MCH 32.1 MCHC 34.2 RDW 14.4 Plt Count 266 MPV 9.2 Gran % 59.0 Lymph % (Auto) 28.2 Real % (Auto) 7.8 H Eos % (Auto) 4.7 Baso % (Auto) 0.3 Gran # 3.39 Lymph # (Auto) 1.6 Real # (Auto) 0.5 Eos # (Auto) 0.3 Baso # (Auto) 0.02 Sodium 140 Potassium 4.6 Chloride 105 Carbon Dioxide 27 Anion Gap 13 BUN 15 Creatinine 0.7 L Est GFR ( Amer) > 60 Est GFR (Non-Af Amer) > 60 Random Glucose 100 Hemoglobin A1c Calcium 8.6 Phosphorus 3.7 3.1 Magnesium 1.8 2.0 Total Bilirubin 0.6 AST 29 ALT 22 Alkaline Phosphatase 61 Troponin I < 0.01 Total Protein 6.7 Albumin 3.9 Globulin 2.8 Albumin/Globulin Ratio 1.4 Triglycerides 184 H Cholesterol 194 LDL Cholesterol Direct 109 HDL Cholesterol 49 TSH 3rd Generation 09/21/17 09/21/17 06:00 06:00 WBC RBC Hgb Hct MCV MCH MCHC RDW Plt Count MPV Gran % Lymph % (Auto) Real % (Auto) Eos % (Auto) Baso % (Auto) Gran # Lymph # (Auto) Real # (Auto) Eos # (Auto) Baso # (Auto) Sodium Potassium Chloride Carbon Dioxide Anion Gap BUN Creatinine Est GFR ( Amer) Est GFR (Non-Af Amer) Random Glucose Hemoglobin A1c 5.6 Calcium Phosphorus Magnesium Total Bilirubin AST ALT Alkaline Phosphatase Troponin I Total Protein Albumin Globulin Albumin/Globulin Ratio Triglycerides Cholesterol LDL Cholesterol Direct HDL Cholesterol TSH 3rd Generation 1.95 Assessment & Plan - Assessment and Plan (Free Text) Assessment: 54 yr old male with diffuse diverticulosis, sigmoid wall thickening and history of Serrated adenoma Plan: Will attempt to obtain previous colonoscopy records patient may need surgical resection, however would need repeat colonoscopy first given that previous colonoscopy was over 1 year ago patient tolerating diet with no difficulty, abdomen benign, patient asymptomatic no acute surgical intervention necessary Discussed with Dr. Ramin Moulton, PGY1
--- NOTE | 2017-09-21 16:19 | PN ---
DATE: 09/21/2017 REASON FOR CONSULTATION AND FOLLOWUP: Cardiac evaluation, admitted with CVA, rule out arrhythmia. The patient denies any chest pain, shortness of breath or any palpitation, sitting at bedside, having the breakfast. OBJECTIVE . GENERAL: Not in apparent distress. VITAL SIGNS: As follows, temperature afebrile, heart rate 75, blood pressure 160/100. HEENT: PERRLA. Extraocular muscles intact. NECK: Supple. No carotid bruits, no thyromegaly. CHEST: Clear to auscultation. HEART: S1, S2 regular. ABDOMEN: Soft. EXTREMITIES: Clubbing and cyanosis negative. LABORATORY DATA: Blood workup: WBC 5.8, hemoglobin , hematocrit 38.3, platelet count 266. Chemistry shows sodium 140, potassium 4, chloride 105, carbon dioxide 26, anion gap of 13, BUN 15, creatinine 0.7, total bilirubin 6, albumin 3.9, albumin-globulin ratio 1.4, triglycerides 184, cholesterol 194, LDL 104, HDL 49, TSH 1.49. Telemetry shows normal sinus. Troponin remains negative x2. ASSESSMENT AND PLAN: A 56-year-old male with past medical history significant for one and a half pack for more than 30 years, history of hypertension, noncompliant with medications, currently medications, admitted with acute cerebrovascular accident status post tissue plasminogen activator was given. His blood pressure is uncontrolled. The patient had a stress test 05/03/2016, essentially normal myocardial perfusion study, ejection fraction 68% dated 05/03/2016. The patient had echo 05/02/2016, ejection fraction 55% with trace aortic regurgitation, mitral regurgitation, trace tricuspid regurgitation, right ventricular systolic pressure of 23 dated 03/01/2017. RECOMMENDATIONS: Aggressive control of blood pressure, put on low dose of beta topher and add on ALICIA inhibitors. Continue atorvastatin. Start baby aspirin when it is suitable from Neurology point of view. We will follow with you. Get an echo to assess LV function. RECOMMENDATIONS: We will get echo with bubble study, start low dose of beta topher and ALICIA inhibitor. Further recommendation with hospital course. We will follow with you. Emphasized on complete cessation of smoking, modification of lifestyle, modification of risk factor for coronary artery disease. We will do stress test in four to six days as outpatient for risk stratification. So far, no evidence of acute MO. As mentioned last stress test is 04/2016 was essentially negative. Thank you Dr. Petty for providing us the opportunity in taking care of the patient, Hayder Lindquist. Emory Dean MD
--- NOTE | 2017-09-21 17:42 | CARD ---
APPROVED REPORT EXAM: Two-dimensional and M-mode echocardiogram with Doppler and color Doppler. INDICATION S/P TPA..R/O ASD PFO..BUBBLE STUDY 2D DIMENSIONS Left Atrium (2D)3.8 (1.6-4.0cm)IVSd1.3 (0.7-1.1cm) LVDd4.6 (3.9-5.9cm)PWd1.3 (0.7-1.1cm) LVDs3.4 (2.5-4.0cm)FS (%) 25.3 % LVEF (%)50.1 (>50%) M-Mode DIMENSIONS Aortic Root3.80 (2.2-3.7cm) Aortic Valve AoV Peak Mbajatbz433.0cm/Jose Peak GR.7mmHg Mitral Valve MV E Xdwfhbtr43.7cm/sMV A Vpfhbehm07.4cm/sE/A ratio0.7 TDI Lateral E' Peak V9.30cm/sMedial E' Peak V5.95cm/sE/Lateral E'6.5 E/Medial E'10.2 Tricuspid Valve TR Peak Lcmaqqep098pc/sRAP [id number] Peak Gr.7mmHg [id number] LEFT VENTRICLE The left ventricle is normal size. There is normal left ventricular wall thickness. The left ventricular function is normal.EF-55% There is normal LV segmental wall motion. Transmitral Doppler flow pattern is Grade III-reversible restrictive diastolic dysfunction. No left ventricle thrombus noted on this study. There is no ventricular septal defect visualized. There is no left ventricular aneurysm. There is no mass noted in the left ventricle. RIGHT VENTRICLE The right ventricle is normal size. There is normal right ventricular wall thickness. The right ventricular systolic function is normal. ATRIA The left atrium size is normal. The right atrium size is normal. The interatrial septum is intact with no evidence for an atrial septal defect, By Bubble study, AORTIC VALVE The aortic valve is thickened but opens well. No aortic regurgitation is present. There is no aortic valvular stenosis. There is no aortic valvular vegetation. MITRAL VALVE The mitral valve is thickened but opens well. Mitral regurgitation is trace. There is no mitral valve stenosis. There is no evidence of mitral valve prolapse. TRICUSPID VALVE The tricuspid valve leaflets are thickened , but open well. There is trace tricuspid regurgitation.RVSP_17 mmof hg. There is no tricuspid valve stenosis. There is no tricuspid valve prolapse or vegetation. PULMONIC VALVE The pulmonic valve is not well visualized. GREAT VESSELS The aortic root is normal in size. The ascending aorta is normal in size. The pulmonary artery is normal. The IVC is normal in size and collapses >50% with inspiration. PERICARDIAL EFFUSION There is no pleural effusion. There is no pericardial effusion. <Conclusion> Normal chamber Size. EF-55% Trace MR/TR RVSP-17 mof Hg The interatrial septum is intact with no evidence for an atrial septal defect, By Bubble study,
[2017-09-21] MEDS: Budesonide 0.5 mg/2 ml Inhal Susp UD IH SCH (20:13)
[2017-09-21] MEDS: Arformoterol 15 mcg/2 ml Inh Sol IH SCH (20:13)
[2017-09-22 04:15] VITALS: O2SAT 98
[2017-09-22 06:20] LABS: BASO # 0.03 K/mm3 (0.0-2.0); BASO % 0.5 % (0.0-3.0); EOS # 0.4 (0.0-0.7); EOS % 6.1 % (1.5-5.0); GRAN # 3.27 (1.4-6.5); GRAN % 57.2 % (50.0-68.0); HEMOGLOBIN 13.8 g/dL (14.0-18.0); LYMPH # 1.5 (1.2-3.4); LYMPH % 26.9 % (22.0-35.0); MEAN CELL VOLUME 94.9 fl (80.0-105.0); MEAN CORPUSCULAR HEMOGLOBIN 31.8 pg (25.0-35.0); MEAN CORPUSCULAR HGB CONC 33.5 g/dl (31.0-37.0); MEAN PLATELET VOLUME 9.4 fl (7.0-11.0); MONO # 0.5 (0.1-0.6); MONO % 9.3 % (1.0-6.0); RBC 4.34 10^6/uL (3.5-6.1); RED CELL DISTRIBUTION WIDTH 14.3 % (11.5-14.5); WHITE BLOOD COUNT 5.7 10^3/ul (4.5-11.0)
[2017-09-22 06:36] LABS: ALB/GLOB RATIO 1.5 (1.1-1.8); ALT/SGPT 25 U/L (7-56); AST/SGOT 26 U/L (17-59); BLOOD UREA NITROGEN 17 mg/dL (7-21); GFR AFRICAN-AMERICAN > 60; GFR NON-AFRICAN AMERICAN > 60
[2017-09-22] MEDS: Arformoterol 15 mcg/2 ml Inh Sol IH SCH (07:10)
[2017-09-22] MEDS: Budesonide 0.5 mg/2 ml Inhal Susp UD IH SCH (07:10)
--- NOTE | 2017-09-22 07:51 | CP.PCM.PN ---
Subjective - Date & Time of Evaluation Date of Evaluation: 09/22/17 Time of Evaluation: 07:50 - Subjective Subjective: General Surgery Note for Dr. Faustin Patient seen and examined at bedside. No acute event overnight. Patient resting in bed comfortably. He has no complaints today. He is tolerating diet and passing flatus. He refuses to use bedside commode, stating "he will only use a real bathroom to move his bowels." Patient is adamant about going home today since its his grandson's 2nd birthday. Objective - Vital Signs/Intake and Output Vital Signs (last 24 hours): Temp Pulse Resp BP Pulse Ox 98.2 F 63 24 104/50 L 98 09/22/17 04:00 09/22/17 06:00 09/22/17 04:10 09/22/17 04:00 09/22/17 04:00 Intake and Output: 09/22/17 09/22/17 06:59 18:59 Intake Total 270 Output Total 600 Balance -330 - Medications Medications: Current Medications Albuterol/Ipratropium (Duoneb 3 Mg/0.5 Mg (3 Ml) Ud) 3 ml IH [id number] PRN PRN Reason: Wheezing Last Admin: 09/20/17 17:45 Dose: 3 ml Arformoterol Tartrate (Brovana) 15 mcg IH [id number] [facility] Last Admin: 09/22/17 07:10 Dose: 15 mcg Atorvastatin Calcium (Lipitor) 40 mg PO DIN [facility] Last Admin: 09/21/17 17:01 Dose: 40 mg Budesonide (Pulmicort Respules) 1 mg IH [id number] [facility] Last Admin: 09/22/17 07:10 Dose: 0.5 mg Folic Acid (Folic Acid) 1 mg PO DAILY [facility] Last Admin: 09/21/17 10:12 Dose: 1 mg Hydralazine HCl (Apresoline) 10 mg IVP Q8H PRN PRN Reason: Systolic Blood Pressure Lisinopril (Zestril) 10 mg PO DAILY [facility] Last Admin: 09/21/17 10:13 Dose: 10 mg Lorazepam (Ativan) 1 mg IVP Q2 PRN; Protocol PRN Reason: Symptoms of alcohol withdrawl Metoprolol Tartrate (Lopressor) 25 mg PO BID [facility] Last Admin: 07/06/18 17:01 Dose: 25 mg Multivitamins (Thera Tab) 1 tab PO 0800 [facility] Last Admin: 09/21/17 08:23 Dose: 1 tab Nicotine (Nicoderm Cq) 1 patch TD DAILY [facility] Last Admin: 09/21/17 10:14 Dose: 1 patch Thiamine HCl (Vitamin B1 Tab) 100 mg PO DAILY [facility] Last Admin: 09/21/17 10:14 Dose: 100 mg - Labs Labs: 09/22/17 05:30 09/22/17 05:30 PT 10.2 SECONDS (9.4-12.5) 09/20/17 09:16 INR 0.89 (0.93-1.08) L 09/20/17 09:16 APTT 34.4 Seconds (25.1-36.5) 09/20/17 09:16 - Constitutional Appears: No Acute Distress - Head Exam Head Exam: ATRAUMATIC, NORMOCEPHALIC - Eye Exam Eye Exam: Normal appearance - ENT Exam ENT Exam: Mucous Membranes Moist - Respiratory Exam Respiratory Exam: NORMAL BREATHING PATTERN - Cardiovascular Exam Cardiovascular Exam: REGULAR RHYTHM - GI/Abdominal Exam GI & Abdominal Exam: Soft, Normal Bowel Sounds. absent: Distended, Firm, Guarding, Rigid, Tenderness, Rebound - Extremities Exam Extremities Exam: Normal Capillary Refill - Back Exam Back Exam: absent: CVA tenderness (L), CVA tenderness (R) - Neurological Exam Neurological Exam: Alert, Awake, Oriented x3 - Psychiatric Exam Psychiatric exam: Normal Affect, Normal Mood - Skin Skin Exam: Dry, Intact, Normal Color, Warm Assessment and Plan - Assessment and Plan (Free Text) Assessment: 56 M with diffuse diverticulosis, sigmoid wall thickening and history of Serrated adenoma Plan: -Patient is clear for discharge from surgical standpoint -f/u in [address] Faustin in his office as outpatient -Will plan for elective resection after 4 weeks due to TPA administration -Management as per primary -Discussed with Dr. Ramin Kelly PGY2
[2017-09-22] MEDS: Multivitamin Therapeutic Tab PO SCH (08:08)
[2017-09-22 13:37] VITALS: TEMP 98
--- NOTE | 2017-09-22 14:32 | CP.PCM.DIS ---
<Jony Escalona L - Last Filed: 09/23/17 16:21> Provider - Provider Date of Admission: 09/20/17 11:42 Attending physician: Miguel Richter MD Primary care physician: Dr. Petty Consults: Neurology: Dr. Singletary Cardiology: Dr. Dean GI: Dr. Medina General surgery: Dr. Faustin Time Spent in preparation of Discharge (in minutes): 50 Diagnosis - Discharge Diagnosis (1) TIA (transient ischemic attack) Status: Resolved (2) Tobacco abuse Status: Chronic (3) Alcohol abuse Status: Chronic (4) Hypertension Status: Chronic (5) Diverticulitis Status: Chronic (6) Serrated adenoma of colon Status: Chronic Hospital Course - Lab Results Lab Results: Micro Results 09/20/17 13:00 Nose MRSA Culture (Admit) - Final MRSA NOT DETECTED Most Recent Lab Values WBC 5.7 10^3/ul (4.5-11.0) 09/22/17 05:30 RBC 4.34 10^6/uL (3.5-6.1) 09/22/17 05:30 Hgb 13.8 g/dL (14.0-18.0) L 09/22/17 05:30 Hct 41.2 % (42.0-52.0) L 09/22/17 05:30 MCV 94.9 fl (80.0-105.0) 09/22/17 05:30 MCH 31.8 pg (25.0-35.0) 09/22/17 05:30 MCHC 33.5 g/dl (31.0-37.0) 09/22/17 05:30 RDW 14.3 % (11.5-14.5) 09/22/17 05:30 Plt Count 277 10^3/uL (120.0-450.0) 09/22/17 05:30 MPV 9.4 fl (7.0-11.0) 09/22/17 05:30 Gran % 57.2 % (50.0-68.0) 09/22/17 05:30 Lymph % (Auto) 26.9 % (22.0-35.0) 09/22/17 05:30 [place] % (Auto) 9.3 % (1.0-6.0) H 09/22/17 05:30 Eos % (Auto) 6.1 % (1.5-5.0) H 09/22/17 05:30 Baso % (Auto) 0.5 % (0.0-3.0) 09/22/17 05:30 Gran # 3.27 (1.4-6.5) 09/22/17 05:30 Lymph # (Auto) 1.5 (1.2-3.4) 09/22/17 05:30 [place] # (Auto) 0.5 (0.1-0.6) 09/22/17 05:30 Eos # (Auto) 0.4 (0.0-0.7) 09/22/17 05:30 Baso # (Auto) 0.03 K/mm3 (0.0-2.0) 09/22/17 05:30 PT 10.2 SECONDS (9.4-12.5) 09/20/17 09:16 INR 0.89 (0.93-1.08) L 09/20/17 09:16 APTT 34.4 Seconds (25.1-36.5) 09/20/17 09:16 Sodium 139 mmol/L (132-148) 09/22/17 05:30 Potassium 4.6 mmol/L (3.6-5.0) 09/22/17 05:30 Chloride 105 mmol/L (98-107) 09/22/17 05:30 Carbon Dioxide 26 mmol/L (21-33) 09/22/17 05:30 Anion Gap 13 (10-20) 09/22/17 05:30 BUN 17 mg/dL (7-21) 09/22/17 05:30 Creatinine 0.7 mg/dl (0.8-1.5) L 09/22/17 05:30 Est GFR ( Amer) > 60 09/22/17 05:30 Est GFR (Non-Af Amer) > 60 09/22/17 05:30 POC Glucose (mg/dL) 67 mg/dL (65-110) 09/20/17 09:10 Random Glucose 97 mg/dL (70-110) 09/22/17 05:30 Hemoglobin A1c 5.6 % (4.2-6.5) 09/21/17 06:00 Calcium 9.0 mg/dL (8.4-10.5) 09/22/17 05:30 Phosphorus 2.9 mg/dL (2.5-4.5) 09/22/17 05:30 Magnesium 2.0 mg/dL (1.7-2.2) 09/22/17 05:30 Total Bilirubin 0.4 mg/dL (0.2-1.3) 09/22/17 05:30 AST 26 U/L (17-59) 09/22/17 05:30 ALT 25 U/L (7-56) 09/22/17 05:30 Alkaline Phosphatase 58 U/L (38-126) 09/22/17 05:30 Troponin I < 0.01 ng/mL 09/20/17 15:59 Total Protein 6.6 g/dL (5.8-8.3) 09/22/17 05:30 Albumin 4.0 g/dL (3.0-4.8) 09/22/17 05:30 Globulin 2.7 gm/dL 09/22/17 05:30 Albumin/Globulin Ratio 1.5 (1.1-1.8) 09/22/17 05:30 Triglycerides 184 mg/dL (35-160) H 09/21/17 06:00 Cholesterol 194 mg/dL (130-200) 09/21/17 06:00 LDL Cholesterol Direct 109 mg/dL (0-129) 09/21/17 06:00 HDL Cholesterol 49 mg/dL (29-60) 09/21/17 06:00 TSH 3rd Generation 1.95 mIU/mL (0.46-4.68) 09/21/17 06:00 Blood Type B POSITIVE 09/20/17 11:16 Blood Type Confirm B POSITIVE 09/20/17 11:44 Antibody Screen Negative 09/20/17 11:16 BBK History Checked No verified bt 09/20/17 11:16 - Hospital Course Hospital Course: Patient is a 56 yo male with past medical history of HTN, COPD, diverticulitis, inguinal hernia, alcohol and tobacco abuse presented to ED complaining of numbness and tingling in his lower extremities bilaterally along with numbness in his face. At the time of presentation in the ER, patient was found to have NIH stroke scale of 2. Code stroke was called. Patient had CT head without contrast which revealed no acute ischemic changes and no hemorrhage. Patient was given tPA as recommended by neurologist in the ED. Patient was admitted to ICU for monitoring. Repeat CT in the AM revealed no acute changes. Patient was transferred to telemetry. Patient had CTA of head and neck revealing moderate left and mild right cavernous ICA stenoses and limited bilateral carotid bulbar atherosclerosis. Brain MRI showed no ischemic changes. Patient's symptoms resolved. Labs including electrolyte and TSH were normal. Patient was found to have dyslipidemia and was started on lipitor. In addition, speech and swallow saw patient, recommended regular consistent diet with thin liquid. PT also evaluated patient, recommended home once medically stable. Cardiology also evaluated patient. ECHO with bubble study was negative. Furthermore, patient underwent CT abdomen and pelvis in the ED and was found to have questionable diverticulitis and a 2.8 x 2.4 cm ill-defined enhancing area in the mid sigmoid colon which could represent phlegmon/developing abscess however carcinoma cannot be entirely excluded. Patient was afebrile, no leukocytosis, and was not complaining of abdominal pain. Thus, antibiotics were withheld. GI was consulted and recommended patient be evaluated by surgery due to history of unresected sigmoid serrated adenoma. Surgery evaluated patient and recommended outpatient followup. Patient was discharged to follow up with surgery as outpatient and PMD. - Date & Time of H&P Date of H&P: 09/20/17 Time of H&P: 13:57 Discharge Exam - Head Exam Head Exam: ATRAUMATIC, NORMOCEPHALIC Discharge Plan - Discharge Medications Prescriptions: Aspirin [Adult Low Dose Aspirin EC] 81 mg PO DAILY #30 tab Atorvastatin [Lipitor] 40 mg PO DIN #30 tab Folic Acid 1 mg PO DAILY #30 tab Lisinopril [Zestril] 10 mg PO DAILY #30 tab Metoprolol Tartrate [Lopressor] 25 mg PO BID #60 tab Multivitamin Therapeutic Tab [Thera Tab] 1 tab PO 0800 #30 tab - Follow Up Plan Condition: FAIR Disposition: HOME/ ROUTINE Instructions: Heart Healthy Diet, Diverticulosis, Lowering the Risk of Having Another Stroke, Medicines After an Ischemic Stroke, Quitting Smoking, Recovery After Stroke, Clot Dissolving Drugs for Heart Attack or Stroke, Colonoscopy, Open Herniorrhaphy (DC), Laparoscopic Herniorrhaphy (DC), Inguinal Hernia (DC) Additional Instructions: Continue aspirin and lipitor daily. Also continue blood pressure medications metoprolol twice a day and lisinopril once a day. Please follow up with your primary care doctor Dr. Petty within 3 to 5 days. Please follow up with Dr. Petty or [facility] for further GI evaluation and workup for colonic mass. Please follow up with surgeon Dr. Faustin within one week to discuss possible surgical management of colonic mass. Please also follow up with neurologist Dr. Singletary in his clinic within the next 2 weeks. Please also follow up with supply chain procurement manager Dr. Dean in his clinic. You will need a stress test in four to six days as outpatient for risk stratification. Return to the emergency room if symptoms return or you have new symptoms requiring medical attention. Please refrain from using alcohol or tobacco products. Referrals: [facility] Suri Petty MD [Staff Provider] - Emory Dean MD [Staff Provider] - Justin Singletary MD [Staff Provider] - Eyad Faustin MD [Staff Provider] - <Briseyda Hernandez R - Last Filed: 09/23/17 18:22> Provider - Provider Date of Admission: 09/20/17 11:42 Attending physician: Miguel Richter MD Hospital Course - Lab Results Lab Results: Micro Results 09/20/17 13:00 Nose MRSA Culture (Admit) - Final MRSA NOT DETECTED Most Recent Lab Values WBC 5.7 10^3/ul (4.5-11.0) 09/22/17 05:30 RBC 4.34 10^6/uL (3.5-6.1) 09/22/17 05:30 Hgb 13.8 g/dL (14.0-18.0) L 09/22/17 05:30 Hct 41.2 % (42.0-52.0) L 09/22/17 05:30 MCV 94.9 fl (80.0-105.0) 09/22/17 05:30 MCH 31.8 pg (25.0-35.0) 09/22/17 05:30 MCHC 33.5 g/dl (31.0-37.0) 09/22/17 05:30 RDW 14.3 % (11.5-14.5) 09/22/17 05:30 Plt Count 277 10^3/uL (120.0-450.0) 09/22/17 05:30 MPV 9.4 fl (7.0-11.0) 09/22/17 05:30 Gran % 57.2 % (50.0-68.0) 09/22/17 05:30 Lymph % (Auto) 26.9 % (22.0-35.0) 09/22/17 05:30 [place] % (Auto) 9.3 % (1.0-6.0) H 09/22/17 05:30 Eos % (Auto) 6.1 % (1.5-5.0) H 09/22/17 05:30 Baso % (Auto) 0.5 % (0.0-3.0) 09/22/17 05:30 Gran # 3.27 (1.4-6.5) 09/22/17 05:30 Lymph # (Auto) 1.5 (1.2-3.4) 09/22/17 05:30 [place] # (Auto) 0.5 (0.1-0.6) 09/22/17 05:30 Eos # (Auto) 0.4 (0.0-0.7) 09/22/17 05:30 Baso # (Auto) 0.03 K/mm3 (0.0-2.0) 09/22/17 05:30 PT 10.2 SECONDS (9.4-12.5) 09/20/17 09:16 INR 0.89 (0.93-1.08) L 09/20/17 09:16 APTT 34.4 Seconds (25.1-36.5) 09/20/17 09:16 Sodium 139 mmol/L (132-148) 09/22/17 05:30 Potassium 4.6 mmol/L (3.6-5.0) 09/22/17 05:30 Chloride 105 mmol/L (98-107) 09/22/17 05:30 Carbon Dioxide 26 mmol/L (21-33) 09/22/17 05:30 Anion Gap 13 (10-20) 09/22/17 05:30 BUN 17 mg/dL (7-21) 09/22/17 05:30 Creatinine 0.7 mg/dl (0.8-1.5) L 09/22/17 05:30 Est GFR ( Amer) > 60 09/22/17 05:30 Est GFR (Non-Af Amer) > 60 09/22/17 05:30 POC Glucose (mg/dL) 67 mg/dL (65-110) 09/20/17 09:10 Random Glucose 97 mg/dL (70-110) 09/22/17 05:30 Hemoglobin A1c 5.6 % (4.2-6.5) 09/21/17 06:00 Calcium 9.0 mg/dL (8.4-10.5) 09/22/17 05:30 Phosphorus 2.9 mg/dL (2.5-4.5) 09/22/17 05:30 Magnesium 2.0 mg/dL (1.7-2.2) 09/22/17 05:30 Total Bilirubin 0.4 mg/dL (0.2-1.3) 09/22/17 05:30 AST 26 U/L (17-59) 09/22/17 05:30 ALT 25 U/L (7-56) 09/22/17 05:30 Alkaline Phosphatase 58 U/L (38-126) 09/22/17 05:30 Troponin I < 0.01 ng/mL 09/20/17 15:59 Total Protein 6.6 g/dL (5.8-8.3) 09/22/17 05:30 Albumin 4.0 g/dL (3.0-4.8) 09/22/17 05:30 Globulin 2.7 gm/dL 09/22/17 05:30 Albumin/Globulin Ratio 1.5 (1.1-1.8) 09/22/17 05:30 Triglycerides 184 mg/dL (35-160) H 09/21/17 06:00 Cholesterol 194 mg/dL (130-200) 09/21/17 06:00 LDL Cholesterol Direct 109 mg/dL (0-129) 09/21/17 06:00 HDL Cholesterol 49 mg/dL (29-60) 09/21/17 06:00 TSH 3rd Generation 1.95 mIU/mL (0.46-4.68) 09/21/17 06:00 Blood Type B POSITIVE 09/20/17 11:16 Blood Type Confirm B POSITIVE 09/20/17 11:44 Antibody Screen Negative 09/20/17 11:16 BBK History Checked No verified bt 09/20/17 11:16 Attending/Attestation - Attestation I have personally seen and examined this patient.: Yes I have fully participated in the care of the patient.: Yes I have reviewed all pertinent clinical information, including history, physical exam and plan: Yes Notes (Text): Patient seen and examined by me at 12:15 PM 09/22/17 with resident at bedside. Case including discharge planning discussed with resident. Agree with above with following additions/changes. Patient is a 56-year-old male with past medical history significant for hypertension, alcohol abuse, tobacco abuse, COPD, and diverticulitis the presented to the emergency room with chest palpitations and tingling and numbness in bilateral extremities and numbness in the face. Patient was given TPA in the emergency room. Patient was admitted with numbness and tingling in the strategies. Patient was admitted to the ICU secondary to receiving TPA. Neurology was consulted. Patient was evaluated by neurology. CT head per radiology showed no acute intracranial findings and minimal age-related diffuse cerebral atrophy which appears to be age appropriate. Repeat brain CT following day showed no acute intracranial abnormalities. Head and neck CTA per radiologist's showed moderate left and mild right cavernous ICA stenosis. MRI brain per radiologist showed no evidence of acute intracranial hemorrhage or infarct. Patient's symptoms and numbness and tingling resolved. Patient was found to be hypertensive. Patient was started on lisinopril and metoprolol. Blood pressure did improve. Patient's blood pressure was elevated prior to discharge. Agitated and anxious to leave. All pressure likely elevated secondary to this. Patient was advised to follow-up with his primary care doctor for repeat blood pressure. Patient was refusing to stay in the hospital. Patient also had palpitations on admission. Cardiology was consulted. Patient was evaluated by cardiology. 2-D echo per supply chain procurement manager showed normal chamber size with an EF of 55%. Chest palpitations resolved. ACS ruled out. Patient also with alcohol abuse. Patient was placed on CIWA protocol. There were no signs of withdrawal. Patient was counseled at length on cessation. Also counseled on length on cessation of tobacco use. Patient was found to have diverticulitis with a sigmoid mass with a history of serrated adenoma on CT scan. Patient has a history of extensive colonic diverticulosis recurrent diverticulitis sigmoid colon mass and history of serrated adenoma. GI was consulted. Per GI, patient has been instructed to follow-up with surgery as surgical resection remains a primary treatment option however patient has been noncompliant with follow-up. Surgery was consulted. Patient is to follow-up within one week with surgery as an outpatient for scheduling of possible resection in 4 weeks as patient did receive TPA in the hospital. All symptoms resolved upon discharge. Patient was cleared for discharge by all consultants. Patient discharged home. On day of discharge, patient states he is feeling well. Wants to go home. Denies any more tingling or numbness. Change in vision. No extremity weakness or slurred speech. No chest pain or shortness of breath. No headaches or dizziness. No fevers or chills. No nausea, vomiting, or abdominal pain. No dysuria. No diarrhea or constipation. Physical exam: Gen: Patient is awake and alert lying in bed in no acute distress HEENT: Normocephalic atraumatic. extraocular muscles intact. Pupils equal and reactive. Hearing grossly intact. Ears and nose externally unremarkable. Oropharynx is pink and moist. No pharyngeal erythema or exudate appreciated. Neck is supple. Pulmonary: Normal respiratory effort. No rhonchi, rales, or wheezing appreciated Cardiovascular: Normal rhythm. Normal S1 and S2. No murmurs or gallops appreciated. Gastrointestinal: Soft, nontender, nondistended. Positive bowel sounds all 4 quadrants. No guarding. Musculoskeletal: Normal range of motion all extremities. Calf tenderness. No CVA tenderness. Vascular: 2+ peripheral pulses upper and lower extremities Central nervous system: AAO 3. Cranial nerves 2-12 grossly intact. 5 out of 5 muscle strength all extremities. Dentition intact. No dysarthria. No facial droop. NIH stroke scale score 0 Dermatologic: Skin warm and dry Follow-up instructions: Patient to follow-up with his primary care doctor Dr. Petty within 3-5 days. Patient to follow-up with his primary care doctor or [facility] for further GI evaluation and workup for colonic mass. Patient to follow-up with surgeon Dr. Faustin in one week to discuss possible surgical management of colonic mass. Patient to follow-up with neurologist Dr. Singletary within 2 weeks. Patient to take medications as prescribed. Vision to follow-up with supply chain procurement manager Dr. Dean, patient will need a stress test in 4-6 days as an outpatient for risk stratification. Patient counseled on alcohol and tobacco cessation. All instructions explained to the patient and patient's at bedside in detail. They both understand and agree to all instructions. Please see chart for full details. Time spent on discharging patient including chart review, medication reconciliation, discussion with the patient and family, consultants, and medical sonographer, and nursing staff was approximately 45 minutes.
[2017-09-22 14:48] VITALS: BP 179/101
--- NOTE | 2017-09-22 15:07 | PN ---
DATE: 09/22/[address] Dean. SUBJECTIVE: The patient denies any slurring of speech, numbness, chest pain or shortness of breath. No reported ventricular arrhythmia. PHYSICAL EXAMINATION: VITAL SIGNS: Blood pressure 151/97, heart rate 63, respirations 21, temperature 98.2. HEENT: Normocephalic. CHEST: Clear. HEART: S1 and S2 regular. EXTREMITIES: No edema. LABORATORY DATA: Hemoglobin and hematocrit 13.8 and 41.2. White count and platelet count are within normal limit. Today, SMA-7 is within normal limits except for creatinine 0.7. CT angio of chest, abdomen and pelvis: No evidence of aortic dissection, aortic aneurysm or pulmonary embolism. Extensive colonic diverticulosis. 2.8 x 2.4 cm ill defined enhancing area in the mid sigmoid colon, which could represent phlegmon/developing abscess; however, carcinoma cannot be entirely excluded. Brain MRI without contrast: No evidence of acute intracranial hemorrhage or infarct. ASSESSMENT: 1. Questionable transient ischemic attack. 2. Uncontrolled hypertension. 3. Abnormal EKG with evidence of minimal left ventricular hypertrophy and early repolarization changes. 4. Questionable transverse colonic lesion. RECOMMENDATIONS: Optimize blood pressure control. Continue Lipitor, Lopressor, Zestril, thiamine and hydralazine. The patient can be discharged from a cardiac point of view. GI followup is definitely recommended. Jaiden Jacobson MD
[2017-09-22 16:01] VITALS: PULSE 72; RESP 28
--- NOTE | 2017-09-22 22:01 | PN ---
DATE: 09/22/2017 SUBJECTIVE: This patient was seen and evaluated earlier and discussed with hospitalist and also Dr. Faustin. Discussed with the ICU staff. This 56-year-old patient is admitted with CVA status post TPA therapy. CT scan showed possible sigmoid mass and thickening of the sigmoid valve area. Patient is known to have large sigmoid colon polyp lesions and biopsy was done a year ago was reported as serrated adenoma. Patient was hospitalized after the colonoscopy with acute appendicitis and the findings are again discussed with the patient and documented that patient need to be followed up for the colon resection. Patient did not follow up with Dr. Faustin for the surgery as advised. Patient denies any GI complaints now. PHYSICAL EXAMINATION: VITAL SIGNS: Stable. Temperature afebrile, blood pressure 179/101, pulse 63, respirations 23. HEENT: Atraumatic, anicteric. NECK: Supple. HEART: S1 and S2 heard. LUNGS: Bilateral air entry present. ABDOMEN: Soft. There is no tenderness. EXTREMITIES: No edema, no cyanosis. LABORATORY DATA: Hemoglobin 13.8, hematocrit 41.2, WBC 5.7, platelets 277. Chemistry is otherwise essentially unremarkable. The CT scan was reviewed earlier. IMPRESSION: This 56-year-old patient was admitted with cerebrovascular accident, status post tissue plasminogen activator therapy. Patient is known to have serrated adenoma in sigmoid colon. Large two polypoid lesions in the sigmoid colon noticed in the ultrasound and colonoscopy done a year ago. Patient was again clearly advised to follow up with the surgeon for colon resection. If the colonoscopy or is requested, it will be done before the scheduled OR date. Patient did have full colonoscopy done in June of 2016. No other lesions noticed except the sigmoid polypoid lesions. Patient did have diverticulosis throughout the colon and multiple diverticulosis in the sigmoid and descending colon area. Patient also has moderate size hemorrhoids. History of status post appendicectomy. Patient also has right inguinal hernia. History of left inguinal hernia, surgery done in the past. Also discussed in detail with medical team. Advised to follow up with the medical clinic. Thank you very much for allowing us to participate in the care of the patient. Arminda Medina MD
== END 2017-09-22 16:15 | disposition home or self-care (01) | DRG 832 ==
LOC: ED 08:57 → ERH 11:42 → CCU 13:06
PROVIDERS: ADMIT Internal Medicine; ATTEND Internal Medicine
DX: G45.9 Transient cerebral ischemic attack, unspecified (principal); J44.9 Chronic obstructive pulmonary disease, unspecified; I08.3 Combined rheumatic disorders of mitral, aortic and tricuspid valves; I10 Essential (primary) hypertension; K57.32 Diverticulitis of large intestine without perforation or abscess without bleeding; E78.1 Pure hyperglyceridemia; E78.5 Hyperlipidemia, unspecified; F10.10 Alcohol abuse, uncomplicated; F17.200 Nicotine dependence, unspecified, uncomplicated; K64.9 Unspecified hemorrhoids; R29.705 NIHSS score 5; D12.5 Benign neoplasm of sigmoid colon; R00.2 Palpitations; Z91.19 Patient's noncompliance with other medical treatment and regimen; Z91.14 Patient's other noncompliance with medication regimen; Z87.442 Personal history of urinary calculi

== ENCOUNTER 2018-06-15 23:35 | Inpatient (IN) | payer BC, OTHER ==
--- NOTE | 2018-06-16 00:09 | ED PDOC ---
Arrival/HPI - General Chief Complaint: Groin Pain Time Seen by Provider: 06/15/18 23:56 Historian: Patient, Spouse - History of Present Illness Narrative History of Present Illness (Text): 06/16/18 00:19 57 year old male, whose past medical history includes hernia, hypertension and TIA, who presents to the ED complaining of 1 week duration, worsening groin pain secondary to previously diagnosed hernias. Patient notes symptoms have been intermittent for the past 5 years, and that hernia surgery has been discussed with his surgeon, but he currently has no scheduled appointments with surgery. Patient makes note of mass on his colon, which he has not followed up with his surgeon. Patient reports vomiting, but denies fevers, chills, headache, dizziness, chest pain, shortness of breath, dyspnea on exertion, cough, diarrhea, back pain, neck pain, urinary/bowel changes, or any other complaint. Time/Duration: Other (This week) Symptom Course: Worsening Activities at Onset: Rest, Light Context: Home Past Medical History - Provider Review Nursing Documentation Reviewed: Yes - Infectious Disease Hx of Infectious Diseases: None - Cardiac Hx Cardiac Disorders: Yes Hx Hypertension: Yes - Pulmonary Hx Respiratory Disorders: No - Neurological Hx Neurological Disorder: No - HEENT Hx HEENT Disorder: No - Renal Hx Kidney Stones: Yes - Endocrine/Metabolic Hx Endocrine Disorders: No - Hematological/Oncological Hx Blood Transfusions: No Hx Blood Transfusion Reaction: No - Integumentary Hx Dermatological Disorder: No - Musculoskeletal/Rheumatological Hx Falls: No - Gastrointestinal Hx Gastrointestinal Disorders: Yes Other/Comment: inguinal hernia repair - Genitourinary/Gynecological Hx Genitourinary Disorders: No - Psychiatric Hx Anxiety: Yes Hx Substance Use: No - Surgical History Other/Comment: L INGUINAL HERNIA REPAIR as a child - Anesthesia Hx Anesthesia Reactions: No Hx Malignant Hyperthermia: No - Suicidal Assessment Feels Threatened In Home Enviroment: No Family/Social History - Physician Review Nursing Documentation Reviewed: Yes Family/Social History: Unknown Family HX Smoking Status: Current Some Days Smoker Hx Alcohol Use: Yes Hx Substance Use: No Hx Substance Use Treatment: No Allergies/Home Meds Allergies/Adverse Reactions: Allergies No Known Allergies Allergy (Verified 09/20/17 08:59) Review of Systems - Patients Enrolled in [employer] [X]: A conversation was conducted with the primary medical doctor. - Physician Review All systems were reviewed & negative as marked: Yes - Review of Systems Gastrointestinal: absent: Stool Changes Neurological: absent: Dizziness Physical Exam - Physical Exam Narrative Physical Exam (Text): 06/16/18 00:29 Constitutional: No acute distress. Head: Normocephalic. Atraumatic. Eyes: PERRL. ENT: Moist mucous membranes. Neck: Supple. Cardiovascular: Regular rate. Chest: No tenderness. Respiratory: Clear to auscultation bilaterally. GI: Bilateral hernias reduced, no skin changes, no ecchymosis or erythema. Soft. Nontender. Nondistended. Back: No CVA tenderness. Musculoskeletal: No tenderness or swelling of extremities. Skin: No rash. Neurologic: Alert, no focal deficit. Vital Signs Reviewed: Yes Vital Signs Temp Pulse Resp BP Pulse Ox 06/15/18 23:45 97.6 F 85 20 138/92 H 97 Temperature: Afebrile Blood Pressure: Hypertensive Pulse: Regular Respiratory Rate: Normal Appearance: Positive for: Well-Appearing, Non-Toxic, Comfortable Mental Status: Positive for: Alert and Oriented X 3 Medical Decision Making ED Course and Treatment: 06/16/18 00:33 Impression: 57 year old male who presents to the ED complaining of groin pain. Differential Diagnosis included but are not limited to: Plan: -- Abdomen/Pelvis CT -- Labs -- Urine Culture -- Urinalysis -- Reassess and disposition Prior Visits: Notes and results from previous visits were reviewed. Progress Notes: 06/16/18 04:08 EXAM: CT Abdomen and Pelvis with IV contrast IMPRESSION: Enterocolitis. Infectious and inflammatory etiologies are considered. Consider consultation with GI service. There is diffuse diverticulosis noted involving descending and sigmoid colon. No evidence of acute diverticulitis. Prostate gland is moderately enlarged and contains calcifications. Please correlate with PSA levels. Electronically signed on Jun 16, 2018 4:03:59 AM EDT by: Enzo Farley M.D., MARYJANE Certified By [facility] Fellowship Trained MRI and CT Specialist 06/16/18 04:46 Patient requires antibiotics, can not tolerate PO, will require via IV. Case discussed with Dr. Petty. Accepts patient under her service. Requests Dr. Medina for GI consult. - RAD Interpretation Radiology Orders: 06/16/18 00:04 ABD & PELVIS IV CONTRAST ONLY [CT] Stat - Scribe Statement The provider has reviewed the documentation as recorded by the Leonardo Tello training under Nieves Zarate Provider Scribe Attestation: All medical record entries made by the Scribe were at my direction and personally dictated by me. I have reviewed the chart and agree that the record accurately reflects my personal performance of the history, physical exam, medical decision making, and the department course for this patient. I have also personally directed, reviewed, and agree with the discharge instructions and disposition. Disposition/Present on Arrival - Present on Arrival Any Indicators Present on Arrival: No History of DVT/PE: No History of Uncontrolled Diabetes: No Urinary Catheter: No History of Decub. Ulcer: No History Surgical Site Infection Following: None - Disposition Have Diagnosis and Disposition been Completed?: Yes Diagnosis: Enterocolitis, Intractable vomiting Disposition: HOSPITALIZED Disposition Time: 04:04 Patient Plan: Admission Condition: FAIR
[2018-06-16 01:06] LABS: BASO # 0.05 K/mm3 (0.0-2.0); BASO % 0.6 % (0.0-3.0); EOS # 0.7 (0.0-0.7); EOS % 7.9 % (1.5-5.0); HEMOGLOBIN 12.6 g/dL (14.0-18.0); LYMPH # 3.1 (1.2-3.4); LYMPH % 35.8 % (22.0-35.0); MEAN CELL VOLUME 93.2 fl (80.0-105.0); MEAN CORPUSCULAR HEMOGLOBIN 31.7 pg (25.0-35.0); MEAN PLATELET VOLUME 9.7 fl (7.0-11.0); MONO # 0.6 (0.1-0.6); MONO % 6.7 % (1.0-6.0); RBC 3.98 10^6/uL (3.5-6.1); RED CELL DISTRIBUTION WIDTH 14.1 % (11.5-14.5); WHITE BLOOD COUNT 8.5 10^3/uL (4.5-11.0)
[2018-06-16 01:07] LABS: URINE BILIRUBIN NEGATIVE (NEGATIVE); URINE BLOOD NEGATIVE (NEGATIVE); URINE GLUCOSE (UA) NEGATIVE (NEGATIVE); URINE LEUKOCYTE ESTERASE NEGATIVE Leu/uL (NEGATIVE); URINE PROTEIN NEGATIVE mg/dL (<30 mg/dL); URINE UROBILINOGEN 0.2 E.U./dL (<1 E.U./dL)
[2018-06-16 01:10] LABS: URINE APPEARANCE CLEAR (CLEAR); URINE COLOR STRAW (YELLOW)
[2018-06-16 01:12] LABS: INR 0.97; PARTIAL THROMBOPLASTIN TIME 33.5 Seconds (26.9-38.3); PROTHROMBIN TIME 10.8 SECONDS (9.4-12.5)
[2018-06-16 02:09] LABS: ALB/GLOB RATIO 1.2 (1.1-1.8); ALBUMIN 3.7 g/dL (3.0-4.8); ALT/SGPT 17 U/L (7-56); AST/SGOT 24 U/L (17-59); BLOOD UREA NITROGEN 12 mg/dL (7-21); CALCIUM 8.4 mg/dL (8.4-10.5); GFR NON-AFRICAN AMERICAN > 60; LIPASE 477 U/L (23-300)
[2018-06-16] MEDS ORDERED: Iohexol 350 MG/100 ML VIAL ONE (02:17)
[2018-06-16] MEDS ORDERED: Ciprofloxacin 400mg/200ml D5W 400 MG/200 ML BAG IVPB STA (04:21)
[2018-06-16] MEDS ORDERED: metroNIDAZOLE IV 500 mg/100 ml 500 MG/100 ML BAG IVPB STA (04:21)
[2018-06-16 06:43] VITALS: BMI 23.0
[2018-06-16] MEDS ORDERED: Pneumococcal 23-Valent Vaccine IM ONE (06:43)
[2018-06-16] MEDS ORDERED: Influenza Vaccine 60 mcg/0.5 mL SYR (4YR UP) IM ONE (06:43)
--- NOTE | 2018-06-16 09:57 | CT ---
Date of service: 06/16/2018 PROCEDURE: CT Abdomen and Pelvis with contrast HISTORY: hernias, vomiting COMPARISON: 09/20/2017 TECHNIQUE: Contrast dose: 100 cc of Omni 350 Radiation dose: Total exam DLP = 762.46 mGy-cm. This CT exam was performed using one or more of the following dose reduction techniques: Automated exposure control, adjustment of the mA and/or kV according to patient size, and/or use of iterative reconstruction technique. FINDINGS: LOWER THORAX: Unremarkable. LIVER: Unremarkable. No gross lesion or ductal dilatation. GALLBLADDER AND BILE DUCTS: Unremarkable. PANCREAS: Unremarkable. No gross lesion or ductal dilatation. SPLEEN: Unremarkable. ADRENALS: Unremarkable. No mass. KIDNEYS AND URETERS: Unremarkable. No hydronephrosis. No solid mass. VASCULATURE: Unremarkable. No aortic aneurysm. Mild aortic calcification BOWEL: There is severe diverticulosis of the sigmoid and descending colon. There is severe mural thickening throughout the sigmoid. There is no evidence of acute diverticulitis or abscess formation. APPENDIX: Normal appendix. PERITONEUM: Unremarkable. No free fluid. No free air. LYMPH NODES: Unremarkable. No enlarged lymph nodes. BLADDER: Unremarkable. REPRODUCTIVE: Unremarkable. BONES: No acute fracture. OTHER FINDINGS: The report concurs with the preliminary [employer] report IMPRESSION: There is severe diverticulosis of the sigmoid and descending colon. There is severe mural thickening throughout the sigmoid. There is no evidence of acute diverticulitis or abscess formation.
[2018-06-16] MEDS ORDERED: Multivitamin (MVI) 10 ML, Thiamine 100 MG, Folic Acid 1 MG in Sodium Chloride 0.9% 1,00... IV ONE (10:10)
--- NOTE | 2018-06-16 11:28 | CP.PCM.CON ---
History of Present Illness - History of Present Illness History of Present Illness: Consult note for Dr. Faustin 57 year old male with history of bilateral inguinal hernias, HTN and TIA who presented to the ED complaining of worsening right groin pain over the past 1 week with associated nausea. He was diagnosed with a right inguinal hernia 5 years ago and left inguinal hernia 1 year ago. He has been having intermittent pain for the past 5 years that worsens occasionally when standing up or coughing. Elective hernia repair was discussed at that time but patient failed to follow up. Patient also states he was diagnosed with a "colon mass" in the past reports having a colonoscopy 2 years ago but did not follow up. At this time, he reports passing gas and having normal bowel function. Denies fever, chills, fatigue, chest pain, shortness of breath, abdominal pain, nausea, vomiting, diarrhea, constipation, dysuria. PMhx: bilateral inguinal hernias, HTN, TIA PShx: left inguinal hernia repair 50 years ago NKDA Smokes 1.5 ppd Review of Systems - Review of Systems All systems: reviewed and no additional remarkable complaints except Review of Systems: As per HPI Past Patient History - Infectious Disease Hx of Infectious Diseases: None - Past Medical History & Family History Past Medical History?: Yes - Past Social History Smoking Status: Heavy Smoker > 10 Cigarettes Daily - CARDIAC Hx Cardiac Disorders: Yes Hx Hypertension: Yes - PULMONARY Hx Respiratory Disorders: No - NEUROLOGICAL Hx Neurological Disorder: Yes Hx Transient Ischemic Attacks (TIA): Yes - HEENT Hx HEENT Problems: No - RENAL Hx Chronic Kidney Disease: Yes Hx Kidney Stones: Yes - ENDOCRINE/METABOLIC Hx Endocrine Disorders: No - HEMATOLOGICAL/ONCOLOGICAL Hx Blood Disorders: Yes Hx Cancer: Yes (skin ca basal cell removed from back) Hx Shingles: Yes (6 yrs ago) - INTEGUMENTARY Hx Dermatological Problems: Yes Hx Basil Cell: Yes (back) - MUSCULOSKELETAL/RHEUMATOLOGICAL Hx Musculoskeletal Disorders: Yes Hx Falls: No Hx Fractures: Yes (L hand) - GASTROINTESTINAL Hx Gastrointestinal Disorders: Yes Hx Diverticulitis: Yes Other/Comment: inguinal hernia repair - GENITOURINARY/GYNECOLOGICAL Hx Genitourinary Disorders: No - PSYCHIATRIC Hx Psychophysiologic Disorder: Yes Hx Anxiety: No - SURGICAL HISTORY Hx Surgeries: Yes Hx Appendectomy: Yes Other/Comment: L INGUINAL HERNIA REPAIR as a child - ANESTHESIA Hx Anesthesia Reactions: No Hx Malignant Hyperthermia: No Meds Allergies/Adverse Reactions: Allergies Allergy/AdvReac Type Severity Reaction Status Date / Time No Known Allergies Allergy Verified 09/20/17 08:59 - Medications Medications: Current Medications Aspirin (Ecotrin) 81 mg PO DAILY [facility] Atorvastatin Calcium (Lipitor) 40 mg PO DIN [facility] Chlordiazepoxide (Librium) 0 mg PO Q8 [facility]; Taper; Protocol Stop: 06/21/18 13:59 Folic Acid (Folic Acid) 1 mg PO DAILY [facility] Multivitamins/Vitamin C 10 ml/Thiamine HCl 100 mg/ Folic Acid 1 mg/ Sodium Chloride 1,011.2 mls @ 100 mls/hr IV .Q10H7M ONE Stop: 06/16/18 20:16 Last Admin: 06/16/18 11:07 Dose: 100 mls/hr Ciprofloxacin (Cipro 400mg/200ml Dsw) 400 mg in 200 mls @ 133.3 mls/hr IVPB Q12 [facility]; Protocol Stop: 06/16/18 23:31 Metronidazole (Flagyl) 500 mg in 100 mls @ 100 mls/hr IVPB Q8 [facility]; Protocol Lisinopril (Zestril) 10 mg PO DAILY [facility] Metoprolol Tartrate (Lopressor) 25 mg PO BID [facility] Last Admin: 06/16/18 10:33 Dose: 25 mg Multivitamins (Thera Tab) 1 tab PO 0800 [facility] Physical Exam - Constitutional Appears: No Acute Distress - Head Exam Head Exam: ATRAUMATIC - Eye Exam Eye Exam: EOMI - ENT Exam ENT Exam: Mucous Membranes Moist - Respiratory Exam Respiratory Exam: NORMAL BREATHING PATTERN - Cardiovascular Exam Cardiovascular Exam: absent: Tachycardia - GI/Abdominal Exam GI & Abdominal Exam: Hernia, Tenderness. absent: Distended Additional comments: mild rebound tenderness in RLE b/l inguinal hernias, fat containing, non-incarcerated - Neurological Exam Neurological exam: Alert - Skin Skin Exam: Dry, Intact, Normal Color Results - Vital Signs Recent Vital Signs: Last Vital Signs Temp 97.3 F L 06/16/18 07:00 Pulse 77 06/16/18 10:33 Resp 20 06/16/18 07:00 BP 119/72 06/16/18 10:33 Pulse Ox 95 06/16/18 07:00 - Labs Result Diagrams: 06/16/18 00:40 06/16/18 00:40 Labs: Laboratory Results - last 24 hr 06/16/18 06/16/18 06/16/18 00:40 00:40 00:40 WBC 8.5 RBC 3.98 Hgb 12.6 L Hct 37.1 L MCV 93.2 MCH 31.7 MCHC 34.0 RDW 14.1 Plt Count 307 MPV 9.7 Neut % (Auto) 49.0 L Lymph % (Auto) 35.8 H [place] % (Auto) 6.7 H Eos % (Auto) 7.9 H Baso % (Auto) 0.6 Lymph # (Auto) 3.1 [place] # (Auto) 0.6 Eos # (Auto) 0.7 Baso # (Auto) 0.05 Absolute Neuts (auto) 4.19 PT 10.8 INR 0.97 APTT 33.5 Sodium 139 Potassium 4.2 Chloride 104 Carbon Dioxide 24 Anion Gap 14 BUN 12 Creatinine 0.6 L Est GFR ( Amer) > 60 Est GFR (Non-Af Amer) > 60 Random Glucose 82 Calcium 8.4 Total Bilirubin 0.2 AST 24 ALT 17 Alkaline Phosphatase 60 Total Protein 6.8 Albumin 3.7 Globulin 3.1 Albumin/Globulin Ratio 1.2 Lipase 477 H Urine Color Urine Appearance Urine pH Ur Specific [place] Urine Protein Urine Glucose (UA) Urine Ketones Urine Blood Urine Nitrate Urine Bilirubin Urine Urobilinogen Ur Leukocyte Esterase Alcohol, Quantitative 06/16/18 06/16/18 00:40 00:40 WBC RBC Hgb Hct MCV MCH MCHC RDW Plt Count MPV Neut % (Auto) Lymph % (Auto) [place] % (Auto) Eos % (Auto) Baso % (Auto) Lymph # (Auto) [place] # (Auto) Eos # (Auto) Baso # (Auto) Absolute Neuts (auto) PT INR APTT Sodium Potassium Chloride Carbon Dioxide Anion Gap BUN Creatinine Est GFR ( Amer) Est GFR (Non-Af Amer) Random Glucose Calcium Total Bilirubin AST ALT Alkaline Phosphatase Total Protein Albumin Globulin Albumin/Globulin Ratio Lipase Urine Color Straw Urine Appearance Clear Urine pH 6.0 Ur Specific [place] 1.010 Urine Protein Negative Urine Glucose (UA) Negative Urine Ketones Negative Urine Blood Negative Urine Nitrate Negative Urine Bilirubin Negative Urine Urobilinogen 0.2 Ur Leukocyte Esterase Negative Alcohol, Quantitative 231 H Assessment & Plan - Assessment and Plan (Free Text) Assessment: 57 year old male presents with bilateral fat-containing, non-incarcerated inguinal hernias and radiological findings concerning for enterocolitis. Plan: Start empiric antibiotics. Antiemetics prn. f/u GI recs. Since bilateral inguinal hernias are reducible and nonincarcerated, and the katie ratliff has active infection, hernia repair at this time is not indicated. He may follow up for elective hernia repair once infection resolves. Further recs per Dr. Ramin Simon PGY3
[2018-06-16] MEDS: metroNIDAZOLE IV 500 mg/100 ml 500 MG/100 ML BAG IVPB SCH ×2 (13:25→21:18)
[2018-06-16] MEDS ORDERED: Ciprofloxacin 400mg/200ml D5W 400 MG/200 ML BAG IVPB SCH (22:00)
--- NOTE | 2018-06-17 00:57 | CON ---
DATE: 06/16/2018 REASON FOR CONSULTATION: Lower abdominal pain, history of colonic polyp. HISTORY OF PRESENT ILLNESS: This 57-year-old patient with history of large two polypoid lesions in the sigmoid colon, found to have a serrated adenoma, recommended surgery. In 2016, was admitted a year ago with an acute appendicitis, and following that last year with TIA status TPA therapy. The patient was strongly recommended to have follow up with Dr. Faustin to have the colon resection. Patient did not follow up. Patient did have a full colonoscopy done in 06/2016. Patient also was found to have this diverticulosis and these polypoid lesions in sigmoid colon. Now, he is admitted with a increasing groin pain and especially in the right groin and also left groin, mainly in the right groin for more than a week. He was found to have a reducible hernia. The CT scan showed severe diverticulosis and thickening of the sigmoid colon. PAST MEDICAL HISTORY: Other past medical history is significant as above. History of hypertension and TIA. PAST SURGICAL HISTORY: Significant for status post appendicectomy, left inguinal hernia repair. ALLERGIES: NO KNOWN DRUG ALLERGIES. FAMILY HISTORY: Noncontributory. SOCIAL HISTORY: Positive for smoking. PHYSICAL EXAMINATION: GENERAL: The patient is lying on the bed, not in acute distress. VITAL SIGNS: Pulse 70 per minute, blood pressure is 155/83, and respirations 18. HEENT: Atraumatic and anicteric. NECK: Supple. HEART: S1 and S2 heard. LUNGS: Bilateral air entry present. ABDOMEN: Soft. Mild tenderness in the right groin area and inguinal hernia bilaterally present. EXTREMITIES: No cyanosis, no clubbing. NEUROLOGIC: Alert and oriented. Moves all the extremities. LABORATORY DATA: Hemoglobin 12.6, hematocrit 37.1, WBC is 8.5, and platelets 307. Chemistry is essentially unremarkable. Lipase is 477. IMPRESSION: This 57-year-old patient is admitted with right lower quadrant and also groin tenderness, discomfort, prior inguinal hernia present. The patient does have history of a large serrated adenoma in the sigmoid colon, not removed. Recommended surgery. His other comorbidities include history of TIA status post TPA in the past, hypertension, and chronic obstructive pulmonary disease. RECOMMENDATIONS: We will discuss with the surgical team regarding the surgery. Patient does have mild elevated lipase, which is nonspecific. Pancreatic contour appear otherwise unremarkable. Would request for ultrasound, would request ultrasound of abdomen to rule out any gallstones. Arminda Medina MD
[2018-06-17] MEDS: metroNIDAZOLE IV 500 mg/100 ml 500 MG/100 ML BAG IVPB SCH ×2 (06:16→13:54)
--- NOTE | 2018-06-17 08:06 | CP.PCM.PN ---
<Flores Millan - Last Filed: 06/17/18 13:42> Subjective - Date & Time of Evaluation Date of Evaluation: 06/17/18 Time of Evaluation: 08:06 - Subjective Subjective: Flores Millan, PGY2, GI Progress Note for Dr Medina: Patient seen and examined at bedside. No acute events overnight. Patient reports mild RLQ and LLQ pain, improved since admission. Tolerating CLD well. Denies nausea, vomiting, fevers, chills. No diarrhea. Objective - Vital Signs/Intake and Output Vital Signs (last 24 hours): Temp Pulse Resp BP Pulse Ox 97.9 F 58 L 18 155/90 H 94 L 06/17/18 00:00 06/17/18 06:00 06/17/18 00:00 06/17/18 00:00 06/17/18 00:00 Intake and Output: 06/17/18 06/17/18 06:59 18:59 Intake Total 1200 Balance 1200 - Medications Medications: Current Medications Aspirin (Ecotrin) 81 mg PO DAILY [facility] Atorvastatin Calcium (Lipitor) 40 mg PO DIN [facility] Last Admin: 06/16/18 17:27 Dose: 40 mg Chlordiazepoxide (Librium) 50 mg PO Q8 [facility]; Taper; Protocol Stop: 06/21/18 13:59 Last Admin: 06/17/18 06:15 Dose: 50 mg Folic Acid (Folic Acid) 1 mg PO DAILY [facility] Metronidazole (Flagyl) 500 mg in 100 mls @ 100 mls/hr IVPB Q8 [facility]; Protocol Last Admin: 06/17/18 06:16 Dose: 100 mls/hr Ceftriaxone Sodium (Rocephin 1 Gram Ivpb) 1 gm in 100 mls @ 100 mls/hr IVPB DAILY [facility]; Protocol Lisinopril (Zestril) 10 mg PO DAILY [facility] Metoprolol Tartrate (Lopressor) 25 mg PO BID [facility] Last Admin: 06/16/18 17:26 Dose: 25 mg Multivitamins (Thera Tab) 1 tab PO 0800 [facility] Nicotine (Nicoderm Cq) 1 patch TD DAILY [facility] Last Admin: 06/16/18 13:24 Dose: 1 patch - Labs Labs: 06/16/18 00:40 06/16/18 00:40 PT 10.8 SECONDS (9.4-12.5) 06/16/18 00:40 INR 0.97 06/16/18 00:40 APTT 33.5 Seconds (26.9-38.3) 06/16/18 00:40 - Constitutional Appears: Non-toxic, No Acute Distress - Head Exam Head Exam: ATRAUMATIC, NORMOCEPHALIC - Eye Exam Eye Exam: EOMI, PERRL. absent: Conjunctival injection, Nystagmus, Scleral icterus Pupil Exam: NORMAL ACCOMODATION, PERRL. absent: Miosis, Mydriatic - ENT Exam ENT Exam: Mucous Membranes Moist - Neck Exam Neck Exam: Full ROM - Respiratory Exam Respiratory Exam: Clear to Ausculation Bilateral, NORMAL BREATHING PATTERN. absent: Accessory Muscle Use, Respiratory Distress, Stridor - Cardiovascular Exam Cardiovascular Exam: RRR, +S1, +S2. absent: Murmur - GI/Abdominal Exam GI & Abdominal Exam: Soft, Hypoactive Bowel Sounds. absent: Distended, Guarding, Rigid, Mass, Organomegaly Additional comments: Mild TTP in LLQ, + reducible hernia in RLQ - Extremities Exam Extremities Exam: Normal Inspection. absent: Calf Tenderness, Pedal Edema - Back Exam Back Exam: NORMAL INSPECTION - Neurological Exam Neurological Exam: Alert, Awake, Oriented x3 - Psychiatric Exam Psychiatric exam: Normal Affect, Normal Mood - Skin Skin Exam: Dry, Normal Color, Warm Assessment and Plan - Assessment and Plan (Free Text) Assessment: # Enterocolitis # Abdominal pain # History of serrated adenoma in sigmoid colon # Bilateral inguinal hernias # HTN # TIA - Spoke with Dr Faustin, who recommends repeat colonoscopy for tissue biopsy. Dr Medina to likely do colonoscopy on or Sunday, communicated with charge nurse Nadine. Surgery will do further recs outpatient. - INR 0.97. - Continue with IV antibiotics, zofran prn - CLD. can advance as tolerated. - continue with management of HTN - Further recs per Dr Medina. Case seen and discussed with Dr Medina. <Arminda Medina V - Last Filed: 06/17/18 22:43> Objective - Vital Signs/Intake and Output Vital Signs (last 24 hours): Temp Pulse Resp BP Pulse Ox 97.6 F 71 18 150/98 H 96 06/17/18 17:04 06/17/18 18:00 06/17/18 17:04 06/17/18 17:32 06/17/18 17:04 Intake and Output: 06/17/18 06/18/18 18:59 06:59 Intake Total 840 Balance 840 - Medications Medications: Current Medications Aspirin (Ecotrin) 81 mg PO DAILY [facility] Last Admin: 06/17/18 17:43 Dose: Not Given Atorvastatin Calcium (Lipitor) 40 mg PO DIN [facility] Last Admin: 06/17/18 17:32 Dose: 40 mg Chlordiazepoxide (Librium) 25 mg PO Q6 [facility]; Taper; Protocol Stop: 06/21/18 13:59 Last Admin: 06/17/18 17:32 Dose: 25 mg Folic Acid (Folic Acid) 1 mg PO DAILY [facility] Last Admin: 06/17/18 17:43 Dose: Not Given Ceftriaxone Sodium (Rocephin 1 Gram Ivpb) 1 gm in 100 mls @ 100 mls/hr IVPB DAILY [facility]; Protocol Last Admin: 06/17/18 17:44 Dose: Not Given Lisinopril (Zestril) 10 mg PO DAILY [facility] Last Admin: 06/17/18 17:45 Dose: Not Given Metoprolol Tartrate (Lopressor) 25 mg PO BID [facility] Last Admin: 06/17/18 17:44 Dose: Not Given Multivitamins (Thera Tab) 1 tab PO 0800 [facility] Last Admin: 06/17/18 17:45 Dose: Not Given Nicotine (Nicoderm Cq) 1 patch TD DAILY [facility] Last Admin: 06/17/18 17:44 Dose: Not Given - Labs Labs: 06/16/18 00:40 06/16/18 00:40 PT 10.8 SECONDS (9.4-12.5) 06/16/18 00:40 INR 0.97 06/16/18 00:40 APTT 33.5 Seconds (26.9-38.3) 06/16/18 00:40 Attending/Attestation - Attestation I have personally seen and examined this patient.: Yes I have fully participated in the care of the patient.: Yes I have reviewed all pertinent clinical information, including history, physical exam and plan: Yes Notes (Text): This patient was seen and evaluated here earlier along with the resident. This is an addendum to the GI progress report dictated by the medical billing coder. Patient did have colonoscopy in 2017 large polypoid lesions noticed in the sigmoid colon biopsy was selected adenoma recommended surgical resection. Patient did not follow through. Status post CVA. Would benefit from surgical resection. felipe requested repeat colonoscopy evaluation before surgery. 06/17/18 22:39
[2018-06-17 08:23] LABS: BARBITURATES, UR NEGATIVE (NEGATIVE); BENZODIAZEPINES, UR POSITIVE (NEGATIVE); OPIATES, UR NEGATIVE (NEGATIVE); PHENCYCLIDINE, UR NEGATIVE (NEGATIVE)
--- NOTE | 2018-06-17 09:03 | HP ---
DATE OF EXAM: 06/16/2018 The patient was seen and examined at bedside on 06/16/2018. CHIEF COMPLAINT: Groin pain and abdominal pain. HISTORY OF PRESENT ILLNESS: Mr. Hayder Lindquist is a 57-year-old male with past medical history of hernia, hypertension, and TIA, came to emergency department, was complaining of one-week duration of pain, worsening groin pain secondary to previously diagnosed hernia. Patient noticed symptoms have been intermittent for the past 5 days and that hernia surgery has been discussed with his surgeon multiple times, but he currently has no scheduled appointment with the surgeon. Patient make note of a mass in his colon, which he has not followed up with his surgeon. Patient reports vomiting, but denies fevers or chills. No headache. No dizziness. No hematuria. No hematochezia. PAST MEDICAL HISTORY: Hypertension, kidney stones, left inguinal hernia repair as a child. FAMILY HISTORY: Father and mother noncontributory. SOCIAL HISTORY: Alcohol, yes. Substance abuse, no. Current smoking, yes. ALLERGIES: PATIENT IS NOT ALLERGIC WITH ANY MEDICATIONS. REVIEW OF SYSTEMS: Patient was seen and examined at the bedside. No fever. No chills. No hematuria. No hematochezia. No headache. No dizziness. PHYSICAL EXAMINATION VITAL SIGNS: Temperature 98.6, pulse 70, blood pressure 155/63, respiratory rate 18. HEENT: Head is normocephalic and atraumatic. Eyes; PERRLA. Extraocular muscles intact. Conjunctivae clear. Nose patent. Mucous membranes moist. NECK: Supple. No carotid bruits. No JVD. No thyromegaly. CHEST: Bilaterally symmetrical. HEART: S1 and S2 positive. LUNGS: Clear to auscultation. ABDOMEN: Soft. Bowel sounds present. No organomegaly. EXTREMITIES: No edema. No cyanosis. NEUROLOGIC: Patient is awake and alert. Moving all four extremities. LABORATORY DATA: White blood cells 8.5, hemoglobin 12.6, hematocrit 37.1, and platelets 307. Sodium 139, potassium 4.2, BUN 12, creatinine 0.6, and glucose 82. Lipase 477. ASSESSMENT AND PLAN: Mr. Hayder Lindquist is a 57-year-old male with anemia, increased lipase, alcohol level is 231, history of ethanol abuse, history of inguinal hernia and has been repaired as a childhood. CAT scan shows there is a severe diverticulosis of the sigmoid colon and distending colon, there is a few mural thickening toward the sigmoid. There is no evidence of acute diverticulitis or abscess formation as per CAT scan of the abdomen and pelvis. Surgical and Gastroenterology consult called for intractable nausea and vomiting. Patient is seen by surgeon and his team, which was from Gastroenterology. Meanwhile continue present treatment. Repeat labs. We will follow. Suri Petty MD MTDD
--- NOTE | 2018-06-17 15:48 | US ---
Date of service: 06/17/2018 HISTORY: evaluate for gallstones, right abdomen pain COMPARISON: None. TECHNIQUE: Sonographic evaluation of the abdomen. FINDINGS: LIVER: Measures 16.5 cm. Increased echogenicity of the liver parenchyma. No mass. No intrahepatic bile duct dilatation. GALLBLADDER: Unremarkable. No gallstones. COMMON BILE DUCT: Measures 8 mm. No stones. No dilatation. PANCREAS: Unremarkable as visualized. No mass. No ductal dilatation. The pancreatic duct measures 3 mm in diameter. RIGHT KIDNEY: Measures 12.0 x 4.6 x 5.6cm. Normal echogenicity. No calculus, mass, or hydronephrosis. LEFT KIDNEY: Measures 10.6 x 5.8 x 5.0cm. Normal echogenicity. No calculus, mass, or hydronephrosis. SPLEEN: Normal in size and contour. No mass. 7.9 x 3.3 x 4.4 cm AORTA: No aneurysmal dilatation. IVC: Unremarkable. OTHER FINDINGS: None. IMPRESSION: Fatty infiltration of the liver
[2018-06-17] MEDS: cefTRIAXone 1 gm 1 GM/100 ML BAG IVPB SCH (17:44)
[2018-06-17] MEDS: Multivitamin Therapeutic Tab PO SCH (17:45)
--- NOTE | 2018-06-17 21:01 | PN ---
DATE: 06/17/2018 SUBJECTIVE: The patient is a 57-year-old male. The patient is seen and examined at the bedside on 06/17/2018. Looking comfortable. Still having the pain in both lower abdominal quadrants, but lesser compared to the day of admission. Tolerated clear liquid food. No more nausea or vomiting. No event happened overnight. GI and Surgery are on the case. PHYSICAL EXAMINATION: VITAL SIGNS: Temperature 97.9, pulse 59, respiratory rate 18, blood pressure 150/90, pulse oximetry 94%. HEENT: Head: Normocephalic and atraumatic. Eyes: PERRLA. Extraocular muscles intact. Conjunctivae clear. Nose patent. Mucous membranes moist. NECK: Supple. No carotid bruits. No JVD or thyromegaly. CHEST: Bilaterally symmetrical. HEART: S1 and S2 positive. LUNGS: Clear to auscultation. ABDOMEN: Soft. Bowel sounds present. No organomegaly. Tender in the both lower quadrants. Bowel sounds positive. EXTREMITIES: No edema. No cyanosis. NEUROLOGICAL: The patient is awake and alert. Moving all four extremities. No focal deficits. MEDICATIONS: Aspirin, Lipitor, Librium, folic acid, Flagyl, Rocephin, Zestril, metoprolol, multivitamin, nicotine patch. LABORATORY DATA: White blood cells 8.5, hemoglobin 12.6, hematocrit 37.1 Sodium 139, potassium 4.2, BUN 12, creatinine 0.6, glucose 82. ASSESSMENT AND PLAN: Mr. Hayder Lindquist is a 57-year-old male with anemia, abdominal pain with nausea and vomiting, enterocolitis as per Gastroenterology, history of serrated adenoma in the sigmoid colon, bilateral inguinal hernia, hypertension, transient ischemic attack. Dr. Faustin, surgeon, is on the case. He is going to repeat colonoscopy for tissue biopsy. Dr. Medina will likely do colonoscopy on or Sunday. Communication with the charge nurse, Hetal, and may be Dr. Medina is looking for pigment of enteritis before doing colonoscopy. Continue present treatment. Waiting for input from Dr. Medina. Dr. Medina saw the patient on 06/16/2018. According to him, history of two polypoid lesions in the sigmoid colon and serrated adenoma. Recommended surgery. The patient has history of acute appendicitis, transient ischemic attack, status post tissue plasminogen activator therapy. The patient was recommended by Dr. Faustin for colon resection, but the patient did not follow up. According to Dr. Medina, he said he will discuss with surgical team for making a plan. Gastrointestinal and deep venous thrombosis prophylaxis. Repeat labs. We will follow up. Suri Petty MD MTDD
--- NOTE | 2018-06-18 09:04 | CP.PCM.PN ---
Subjective - Date & Time of Evaluation Date of Evaluation: 06/18/18 Time of Evaluation: 09:03 - Subjective Subjective: General Surgery Progress Note for Dr. Faustin Patient seen and evaluated at bedside this morning. Patient continues to complain of bilateral inguinal tenderness. Patient states he is passing gas. Patient otherwise denies fever, chills, nausea and/or vomiting. Objective - Vital Signs/Intake and Output Vital Signs (last 24 hours): Temp Pulse Resp BP Pulse Ox 97.7 F 74 20 141/86 98 06/18/18 08:47 06/18/18 08:47 06/18/18 08:47 06/18/18 08:47 06/18/18 08:47 Intake and Output: 06/18/18 06/18/18 06:59 18:59 Intake Total 840 360 Balance 840 360 - Medications Medications: Current Medications Aspirin (Ecotrin) 81 mg PO DAILY [facility] Last Admin: 06/17/18 17:43 Dose: Not Given Atorvastatin Calcium (Lipitor) 40 mg PO DIN [facility] Last Admin: 06/17/18 17:32 Dose: 40 mg Chlordiazepoxide (Librium) 25 mg PO Q6 [facility]; Taper; Protocol Stop: 06/21/18 13:59 Last Admin: 06/18/18 05:12 Dose: 25 mg Folic Acid (Folic Acid) 1 mg PO DAILY [facility] Last Admin: 06/17/18 17:43 Dose: Not Given Ceftriaxone Sodium (Rocephin 1 Gram Ivpb) 1 gm in 100 mls @ 100 mls/hr IVPB DAILY [facility]; Protocol Last Admin: 06/17/18 17:44 Dose: Not Given Lisinopril (Zestril) 10 mg PO DAILY [facility] Last Admin: 06/17/18 17:45 Dose: Not Given Metoprolol Tartrate (Lopressor) 25 mg PO BID [facility] Last Admin: 06/17/18 17:44 Dose: Not Given Multivitamins (Thera Tab) 1 tab PO 0800 [facility] Last Admin: 06/17/18 17:45 Dose: Not Given Nicotine (Nicoderm Cq) 1 patch TD DAILY [facility] Last Admin: 06/17/18 17:44 Dose: Not Given - Labs Labs: 06/16/18 00:40 06/16/18 00:40 PT 10.8 SECONDS (9.4-12.5) 06/16/18 00:40 INR 0.97 06/16/18 00:40 APTT 33.5 Seconds (26.9-38.3) 06/16/18 00:40 - Additional Findings Additional findings: - Constitutional Appears: No Acute Distress - Head Exam Head Exam: ATRAUMATIC - Eye Exam Eye Exam: EOMI - ENT Exam ENT Exam: Mucous Membranes Moist - Respiratory Exam Respiratory Exam: NORMAL BREATHING PATTERN - Cardiovascular Exam Cardiovascular Exam: absent: Tachycardia - GI/Abdominal Exam GI & Abdominal Exam: Hernia, Tenderness. absent: Distended Additional comments: mild rebound tenderness in RLE b/l inguinal hernias, fat containing, non-incarcerated - Neurological Exam Neurological exam: Alert - Skin Skin Exam: Dry, Intact, Normal Color Assessment and Plan - Assessment and Plan (Free Text) Assessment: 57 year old male presents with bilateral fat-containing, non-incarcerated inguinal hernias and radiological findings concerning for enterocolitis. Plan: Continue empiric antibiotics Antiemetics as needed for nausea Since bilateral inguinal hernias are reducible and nonincarcerated, and the patient has active infection, hernia repair at this time is not indicated Patient may follow up for elective hernia repair once infection resolves Discussed with Dr. Ramin Rebollar PGY1
[2018-06-18] MEDS: cefTRIAXone 1 gm 1 GM/100 ML BAG IVPB SCH (09:07)
[2018-06-18] MEDS: Multivitamin Therapeutic Tab PO SCH (09:07)
--- NOTE | 2018-06-18 09:12 | CP.PCM.PN ---
<Flores Millan - Last Filed: 06/18/18 10:57> Subjective - Date & Time of Evaluation Date of Evaluation: 06/18/18 Time of Evaluation: 09:08 - Subjective Subjective: Flores Millan, PGY2, GI Progress Note for Dr Medina: Patient seen and examined at bedside. No acute events overnight. Patient reports mild abdominal pain in RLQ and LLQ. Otherwise, toelrating CLD. Denies nausea, vomiting, fevers, chills. No diarrhea. Last BM on Sunday, liquidy. Objective - Vital Signs/Intake and Output Vital Signs (last 24 hours): Temp Pulse Resp BP Pulse Ox 97.7 F 74 20 141/86 98 06/18/18 08:47 06/18/18 09:08 06/18/18 08:47 06/18/18 09:08 06/18/18 08:47 Intake and Output: 06/18/18 06/18/18 06:59 18:59 Intake Total 840 360 Balance 840 360 - Medications Medications: Current Medications Aspirin (Ecotrin) 81 mg PO DAILY [facility] Last Admin: 06/18/18 09:07 Dose: 81 mg Atorvastatin Calcium (Lipitor) 40 mg PO DIN [facility] Last Admin: 06/17/18 17:32 Dose: 40 mg Chlordiazepoxide (Librium) 25 mg PO Q6 [facility]; Taper; Protocol Stop: 06/21/18 13:59 Last Admin: 06/18/18 05:12 Dose: 25 mg Folic Acid (Folic Acid) 1 mg PO DAILY [facility] Last Admin: 06/18/18 09:07 Dose: 1 mg Ceftriaxone Sodium (Rocephin 1 Gram Ivpb) 1 gm in 100 mls @ 100 mls/hr IVPB DAILY [facility]; Protocol Last Admin: 06/18/18 09:07 Dose: 100 mls/hr Lisinopril (Zestril) 10 mg PO DAILY [facility] Last Admin: 06/18/18 09:08 Dose: 10 mg Metoprolol Tartrate (Lopressor) 25 mg PO BID [facility] Last Admin: 06/18/18 09:07 Dose: 25 mg Multivitamins (Thera Tab) 1 tab PO 0800 [facility] Last Admin: 06/18/18 09:07 Dose: 1 tab Nicotine (Nicoderm Cq) 1 patch TD DAILY [facility] Last Admin: 06/18/18 09:07 Dose: 1 patch - Labs Labs: 06/16/18 00:40 06/16/18 00:40 PT 10.8 SECONDS (9.4-12.5) 06/16/18 00:40 INR 0.97 06/16/18 00:40 APTT 33.5 Seconds (26.9-38.3) 06/16/18 00:40 - Additional Findings Additional findings: - Constitutional Appears: Non-toxic, No Acute Distress - Head Exam Head Exam: ATRAUMATIC, NORMOCEPHALIC - Eye Exam Eye Exam: EOMI, PERRL. absent: Conjunctival injection, Nystagmus, Scleral icterus Pupil Exam: NORMAL ACCOMODATION, PERRL. absent: Miosis, Mydriatic - ENT Exam ENT Exam: Mucous Membranes Moist - Neck Exam Neck Exam: Full ROM - Respiratory Exam Respiratory Exam: Clear to Ausculation Bilateral, NORMAL BREATHING PATTERN. absent: Accessory Muscle Use, Respiratory Distress, Stridor - Cardiovascular Exam Cardiovascular Exam: RRR, +S1, +S2. absent: Murmur - GI/Abdominal Exam GI & Abdominal Exam: Soft, Hypoactive Bowel Sounds. absent: Distended, Guarding, Rigid, Mass, Organomegaly Additional comments: Mild TTP in LLQ, + reducible hernia in RLQ - Extremities Exam Extremities Exam: Normal Inspection. absent: Calf Tenderness, Pedal Edema - Back Exam Back Exam: NORMAL INSPECTION - Neurological Exam Neurological Exam: Alert, Awake, Oriented x3 - Psychiatric Exam Psychiatric exam: Normal Affect, Normal Mood - Skin Skin Exam: Dry, Normal Color, Warm Assessment and Plan - Assessment and Plan (Free Text) Assessment: # Enterocolitis # Abdominal pain # History of serrated adenoma in sigmoid colon # Bilateral inguinal hernias # HTN # TIA - Spoke with Dr Faustin, who recommends repeat colonoscopy for tissue biopsy. Dr Medina to do colonoscopy tomorrow. Surgery will do further recs after colonoscopy. - INR 0.97. - Continue with IV antibiotics, zofran prn. - CLD. Will give bowel prep and dulcolax today. - continue with management of HTN - Further recs per Dr Medina. Case seen and discussed with Dr Medina. <Arminda Medina V - Last Filed: 06/18/18 23:45> Objective - Vital Signs/Intake and Output Vital Signs (last 24 hours): Temp Pulse Resp BP Pulse Ox 97.4 F L 82 18 147/91 H 98 06/18/18 18:55 06/18/18 18:55 06/18/18 18:55 06/18/18 18:55 06/18/18 18:55 Intake and Output: 06/18/18 06/19/18 18:59 06:59 Intake Total 360 1680 Balance 360 1680 - Medications Medications: Current Medications Aspirin (Ecotrin) 81 mg PO DAILY [facility] Last Admin: 06/18/18 09:07 Dose: 81 mg Atorvastatin Calcium (Lipitor) 40 mg PO DIN [facility] Last Admin: 06/18/18 17:28 Dose: 40 mg Chlordiazepoxide (Librium) 25 mg PO Q8 [facility]; Taper; Protocol Stop: 06/21/18 13:59 Last Admin: 06/18/18 21:34 Dose: Not Given Folic Acid (Folic Acid) 1 mg PO DAILY [facility] Last Admin: 06/18/18 09:07 Dose: 1 mg Ceftriaxone Sodium (Rocephin 1 Gram Ivpb) 1 gm in 100 mls @ 100 mls/hr IVPB DAILY [facility]; Protocol Last Admin: 06/18/18 09:07 Dose: 100 mls/hr Lisinopril (Zestril) 10 mg PO DAILY [facility] Last Admin: 06/18/18 09:08 Dose: 10 mg Metoprolol Tartrate (Lopressor) 25 mg PO BID [facility] Last Admin: 06/18/18 17:28 Dose: 25 mg Multivitamins (Thera Tab) 1 tab PO 0800 [facility] Last Admin: 06/18/18 09:07 Dose: 1 tab Nicotine (Nicoderm Cq) 1 patch TD DAILY [facility] Last Admin: 06/18/18 09:07 Dose: 1 patch - Labs Labs: 06/16/18 00:40 06/16/18 00:40 PT 10.8 SECONDS (9.4-12.5) 06/16/18 00:40 INR 0.97 06/16/18 00:40 APTT 33.5 Seconds (26.9-38.3) 06/16/18 00:40 Attending/Attestation - Attestation I have personally seen and examined this patient.: Yes I have fully participated in the care of the patient.: Yes I have reviewed all pertinent clinical information, including history, physical exam and plan: Yes Notes (Text): This is an addendum to the GI progress report dictated by the medical coder. This patient was seen and evaluated here earlier along with the resident. Discussed with the Dr. Petty earlier. Patient is noncompliant. Patient has a large serrated adenoma in the sigmoid colon. Admitted with a lower abdominal pain groin tenderness. History of inguinal hernia. Sigmoid colon thickening noticed. Would benefit from colonoscopy evaluation. Surgical follow-up for colon resection. Scheduled for colonoscopy tomorrow 06/18/18 23:43
[2018-06-18] MEDS ORDERED: NuLYTELY (NACL/NAHCO3/KCL/PEG) 4L PO ONE (13:00)
[2018-06-18] MEDS ORDERED: Bisacodyl 5mg EC Tab PO ONE ×2 (19:00→21:30)
--- NOTE | 2018-06-18 21:22 | PN ---
DATE: 06/18/2018 SUBJECTIVE: The patient is a 57-year-old male. The patient is seen and examined at the bedside on 06/18/2018. Looking comfortable. Still having abdominal pain in both lower quadrants. No nausea, vomiting, or diarrhea. No headache or dizziness. No chest pain. No palpitation. Surgery and GI are on the case. PHYSICAL EXAMINATION: VITAL SIGNS: Temperature 97.9, pulse 74, respiratory rate 20, blood pressure 140/60, pulse oximetry 98%. HEENT: Head: Normocephalic and atraumatic. Eyes: PERRLA. Extraocular muscles intact. Conjunctivae clear. Nose patent. NECK: Supple. No carotid bruits. No JVD or thyromegaly. CHEST: Bilaterally symmetrical. HEART: S1 and S2 positive. LUNGS: Clear to auscultation. ABDOMEN: Soft. Bowel sounds present. No organomegaly. EXTREMITIES: No edema. No cyanosis. NEUROLOGICAL: The patient is awake and alert. Moving all four extremities. No focal deficits. MEDICATIONS: Ecotrin, atorvastatin, Librium, folic acid, Rocephin, Zestril, metoprolol, NicoDerm. LABORATORY DATA: White blood cells 8.5, hemoglobin 12.6, hematocrit 37.1, platelets 307. Sodium 139, potassium 4.2, BUN 12, creatinine 0.6, glucose 82. ASSESSMENT AND PLAN: Mr. Hayder Lindquist is a 57-year-old male with anemia, enterocolitis, abdominal pain, history of serrated adenoma in the sigmoid colon, bilateral inguinal hernia, hypertension, transient ischemic attack. Dr. Faustin, surgeon, is recommending repeat colonoscopy for tissue biopsy. Dr. Medina will do colonoscopy tomorrow. Surgery will do workup after colonoscopy. Continue intravenous antibiotics and Zofran. Continue management of blood pressure. Out of bed. Physical therapy. Appreciated Gastroenterology and Surgery input. We will follow up. Suri Petty MD
[2018-06-19 06:36] LABS: INR 1.04; PROTHROMBIN TIME 11.8 SECONDS (9.4-12.5)
[2018-06-19 07:02] LABS: BLOOD UREA NITROGEN 6 mg/dL (7-21); CALCIUM 8.7 mg/dL (8.4-10.5); GFR NON-AFRICAN AMERICAN > 60
[2018-06-19 08:07] LABS: HEMOGLOBIN 12.8 g/dL (14.0-18.0); MEAN CORPUSCULAR HEMOGLOBIN 30.8 pg (25.0-35.0); MEAN CORPUSCULAR HGB CONC 31.6 g/dl (31.0-37.0); MEAN PLATELET VOLUME 9.6 fl (7.0-11.0); RBC 4.16 10^6/uL (3.5-6.1); RED CELL DISTRIBUTION WIDTH 14.5 % (11.5-14.5); WHITE BLOOD COUNT 5.8 10^3/uL (4.5-11.0)
[2018-06-19 08:10] LABS: MEAN CELL VOLUME 97.4 fl (80.0-105.0)
[2018-06-19] MEDS: Multivitamin Therapeutic Tab PO SCH (09:06)
[2018-06-19] MEDS: cefTRIAXone 1 gm 1 GM/100 ML BAG IVPB SCH (10:05)
--- NOTE | 2018-06-19 12:10 | CP.PCM.PN ---
Subjective - Date & Time of Evaluation Date of Evaluation: 06/19/18 Time of Evaluation: 12:08 - Subjective Subjective: General Surgery Progress Note for Dr. Faustin Patient seen and evaluated at bedside this morning. Patient denies any pain today. Patient states he is passing gas. Patient otherwise denies fever, chills, nausea and/or vomiting. Plan is for repeat colonoscopy with GI today. Objective - Vital Signs/Intake and Output Vital Signs (last 24 hours): Temp Pulse Resp BP Pulse Ox 97.5 F L 72 20 145/91 H 93 L 06/19/18 08:00 06/19/18 10:04 06/19/18 08:00 06/19/18 10:04 06/19/18 08:00 Intake and Output: 06/19/18 06/19/18 06:59 18:59 Intake Total 1680 Balance 1680 - Medications Medications: Current Medications Aspirin (Ecotrin) 81 mg PO DAILY [facility] Last Admin: 06/19/18 10:04 Dose: 81 mg Atorvastatin Calcium (Lipitor) 40 mg PO DIN [facility] Last Admin: 06/18/18 17:28 Dose: 40 mg Chlordiazepoxide (Librium) 25 mg PO Q8 [facility]; Taper; Protocol Stop: 06/21/18 13:59 Last Admin: 06/19/18 05:34 Dose: Not Given Folic Acid (Folic Acid) 1 mg PO DAILY [facility] Last Admin: 06/19/18 10:04 Dose: 1 mg Ceftriaxone Sodium (Rocephin 1 Gram Ivpb) 1 gm in 100 mls @ 100 mls/hr IVPB DAILY [facility]; Protocol Last Admin: 06/19/18 10:05 Dose: 100 mls/hr Lisinopril (Zestril) 10 mg PO DAILY [facility] Last Admin: 06/19/18 10:06 Dose: 10 mg Metoprolol Tartrate (Lopressor) 25 mg PO BID [facility] Last Admin: 06/19/18 10:04 Dose: 25 mg Multivitamins (Thera Tab) 1 tab PO 0800 [facility] Last Admin: 06/19/18 09:06 Dose: 1 tab Nicotine (Nicoderm Cq) 1 patch TD DAILY [facility] Last Admin: 06/19/18 10:05 Dose: 1 patch - Labs Labs: 06/19/18 07:50 06/19/18 05:01 PT 11.8 SECONDS (9.4-12.5) 06/19/18 05:01 INR 1.04 06/19/18 05:01 APTT 33.5 Seconds (26.9-38.3) 06/16/18 00:40 - Additional Findings Additional findings: - Constitutional Appears: No Acute Distress - Head Exam Head Exam: ATRAUMATIC - Eye Exam Eye Exam: EOMI - ENT Exam ENT Exam: Mucous Membranes Moist - Respiratory Exam Respiratory Exam: NORMAL BREATHING PATTERN - Cardiovascular Exam Cardiovascular Exam: absent: Tachycardia - GI/Abdominal Exam GI & Abdominal Exam: Hernia, Tenderness. absent: Distended Additional comments: mild tenderness in RLE b/l inguinal hernias, fat containing, non-incarcerated - Neurological Exam Neurological exam: Alert - Skin Skin Exam: Dry, Intact, Normal Color Assessment and Plan - Assessment and Plan (Free Text) Assessment: 57 year old male presents with bilateral fat-containing, non-incarcerated inguinal hernias and radiological findings concerning for enterocolitis Plan: Repeat Colonoscopy today with GI Continue empiric antibiotics Antiemetics as needed for nausea Since bilateral inguinal hernias are reducible and non-incarcerated, and the p atient has active infection, hernia repair at this time is not indicated Patient may follow up for elective hernia repair once infection resolves Discussed with Dr. Ramin Rebollar PGY1
[2018-06-19] MEDS ORDERED: Sodium Chloride 0.9% 1,000 ML IV SCH (16:30)
[2018-06-19] MEDS ORDERED: Midazolam 2 MG/2 ML VIAL ONE (16:36)
[2018-06-19] MEDS ORDERED: Propofol 10 mg/ml Inj (20 ML) ONE ×2 (16:36→17:09)
[2018-06-19] MEDS: metroNIDAZOLE IV 500 mg/100 ml 500 MG/100 ML BAG IVPB SCH (22:58)
--- NOTE | 2018-06-20 01:28 | PN ---
DATE: 06/19/2018 SUBJECTIVE: The patient is a 57-year-old male. The patient was seen and examined at the bedside on 06/19/2018. Sister was sitting on the bedside also. The patient was getting ready to go for colonoscopy. No fever. No chills. No hematuria. No hematochezia. Discussion done with Dr. Medina and Dr. Faustin. PHYSICAL EXAMINATION: VITAL SIGNS: Temperature 97.5, pulse 72, respiratory rate 20, blood pressure 140/90, pulse oxymetry 93%. HEENT: Head: Normocephalic and atraumatic. Eyes: PERRLA. Extraocular muscles intact. Conjunctivae clear. Nose patent. NECK: Supple. No carotid bruit. No JVD or thyromegaly. CHEST: Bilaterally symmetrical. HEART: S1 and S2 positive. LUNGS: Clear to auscultation. ABDOMEN: Soft. Bowel sounds are present. No organomegaly. EXTREMITIES: No edema. No cyanosis. NEUROLOGICAL: The patient is awake and alert. Moving all four extremities. No focal deficits. MEDICATIONS: Ecotrin, atorvastatin, Librium, folic acid, ceftriaxone, Zestril, metoprolol, multivitamins, NicoDerm. LABORATORY DATA: White blood cells 5.8, hemoglobin 12.8, hematocrit 40.5, platelets 259. Sodium 140, potassium 4.1, BUN 6, creatinine 0.6, glucose 86. ASSESSMENT AND PLAN: Mr. Hayder Lindquist is a 57-year-old male with anemia, hyperchloremia. Has bilateral fat containing non-incarcerated inguinal hernias and colitis, worsened abdominal pain. Went for colonoscopy today. Per Dr. Medina, the patient had diverticulosis, rule out sigmoid malignancy, hemorrhoids. Discussion done with Dr. Medina. Getting antibiotics. Gastrointestinal and deep venous thrombosis prophylaxis. Per Dr. Medina, the patient needs surgery, but it will depend on titers. Repeat labs. We will follow up. Suri Petty MD
[2018-06-20] MEDS: metroNIDAZOLE IV 500 mg/100 ml 500 MG/100 ML BAG IVPB SCH (05:40)
--- NOTE | 2018-06-20 07:18 | CP.PCM.PN ---
<Octavia Stark - Last Filed: 06/20/18 07:13> Subjective - Date & Time of Evaluation Date of Evaluation: 06/20/18 Time of Evaluation: 07:14 - Subjective Subjective: Gastroenterology Fellow/PGY6 Progress Note Patient feels well. Denies abdominal pain after colonoscopy. Tolerating diet. A 12-point review of systems negative except for as above. Objective - Vital Signs/Intake and Output Vital Signs (last 24 hours): Temp Pulse Resp BP Pulse Ox 97.7 F 75 15 163/96 H 100 06/19/18 18:00 06/19/18 18:18 06/19/18 18:00 06/19/18 18:18 06/19/18 18:00 Intake and Output: 06/20/18 06/20/18 06:59 18:59 Intake Total 1020 Balance 1020 - Medications Medications: Current Medications Aspirin (Ecotrin) 81 mg PO DAILY [facility] Last Admin: 06/19/18 10:04 Dose: 81 mg Atorvastatin Calcium (Lipitor) 40 mg PO DIN [facility] Last Admin: 06/19/18 18:19 Dose: 40 mg Chlordiazepoxide (Librium) 25 mg PO Q12 [facility]; Taper; Protocol Stop: 06/21/18 13:59 Last Admin: 06/19/18 22:39 Dose: Not Given Folic Acid (Folic Acid) 1 mg PO DAILY [facility] Last Admin: 06/19/18 10:04 Dose: 1 mg Ceftriaxone Sodium (Rocephin 1 Gram Ivpb) 1 gm in 100 mls @ 100 mls/hr IVPB DAILY [facility]; Protocol Last Admin: 06/19/18 10:05 Dose: 100 mls/hr Metronidazole (Flagyl) 500 mg in 100 mls @ 100 mls/hr IVPB Q8 [facility]; Protocol Last Admin: 06/20/18 05:40 Dose: 100 mls/hr Lisinopril (Zestril) 10 mg PO DAILY [facility] Last Admin: 06/19/18 10:06 Dose: 10 mg Metoprolol Tartrate (Lopressor) 25 mg PO BID [facility] Last Admin: 06/19/18 18:18 Dose: 25 mg Multivitamins (Thera Tab) 1 tab PO 0800 [facility] Last Admin: 06/19/18 09:06 Dose: 1 tab Nicotine (Nicoderm Cq) 1 patch TD DAILY [facility] Last Admin: 06/19/18 10:05 Dose: 1 patch Thiamine HCl (Vitamin B1 Tab) 100 mg PO DAILY [facility] - Labs Labs: 06/19/18 07:50 06/19/18 05:01 PT 11.8 SECONDS (9.4-12.5) 06/19/18 05:01 INR 1.04 06/19/18 05:01 APTT 33.5 Seconds (26.9-38.3) 06/16/18 00:40 - Constitutional Appears: Non-toxic, No Acute Distress - Head Exam Head Exam: ATRAUMATIC, NORMOCEPHALIC - Eye Exam Eye Exam: EOMI, PERRL. absent: Scleral icterus Pupil Exam: PERRL. absent: Miosis, Mydriatic - ENT Exam ENT Exam: Mucous Membranes Moist, Normal Oropharynx - Neck Exam Neck Exam: Full ROM, Normal Inspection - Respiratory Exam Respiratory Exam: Clear to Ausculation Bilateral. absent: Rales, Rhonchi, Wheezes - Cardiovascular Exam Cardiovascular Exam: RRR, +S1, +S2. absent: Gallop, Rubs - GI/Abdominal Exam GI & Abdominal Exam: Soft, Hernia, Normal Bowel Sounds. absent: Distended, Firm, Guarding, Rigid, Tenderness, Organomegaly, Rebound - Extremities Exam Extremities Exam: Normal Inspection. absent: Pedal Edema - Neurological Exam Neurological Exam: Alert, Awake - Psychiatric Exam Psychiatric exam: Normal Affect, Normal Mood - Skin Skin Exam: Dry, Intact, Normal Color, Warm Assessment and Plan - Assessment and Plan (Free Text) Assessment: 57 year old male with PMH of HTN, TIA, and large sigmoid serrated adenoma presenting with lower abdominal/groin pain. After treatment of enterocolitis, non-incarcerated bilateral inguinal hernias, and and evaluation of prior serrated adenoma. Prior colonoscopy 06/2016 showed to large serrated adenomas of sigmoid colon with noncompliance to surgical follow up. Plan: -POD1 (06/19) colonoscopy-4cm and 5cm large advanced adenomatous lesions at 37 and 36cm from anal verge- biopsies taken, pending -surgery managing- follow up recommendations regards to colonic surgical resection -on Rocephin/Flagyl -tolerating diet -alcohol cessation counselling provided -will follow clinical course <Arminda Medina V - Last Filed: 06/21/18 00:35> Objective - Vital Signs/Intake and Output Vital Signs (last 24 hours): Temp Pulse Resp BP Pulse Ox 97.9 F 73 20 108/63 93 L 06/20/18 08:55 06/20/18 09:53 06/20/18 08:55 06/20/18 09:53 06/20/18 08:55 - Labs Labs: 06/20/18 07:00 06/20/18 07:00 PT 11.8 SECONDS (9.4-12.5) 06/19/18 05:01 INR 1.04 06/19/18 05:01 APTT 33.5 Seconds (26.9-38.3) 06/16/18 00:40 Attending/Attestation - Attestation Notes (Text): This patient was seen and evaluated along with the resident for GI fellow earlier today.This is an addendum to the GI progress report dictated by the fellow. Patient has a large polypoid lesions in the sigmoid colon. Discussed with the surgical team. Discussed with Dr. Faustin earlier today. Patient was followed up by the surgeon in the office and scheduled for colonoscopy 06/21/18 00:33
[2018-06-20 07:47] LABS: HEMOGLOBIN 13.3 g/dL (14.0-18.0); MEAN CELL VOLUME 96.5 fl (80.0-105.0); MEAN CORPUSCULAR HEMOGLOBIN 31.2 pg (25.0-35.0); MEAN CORPUSCULAR HGB CONC 32.4 g/dl (31.0-37.0); MEAN PLATELET VOLUME 9.8 fl (7.0-11.0); RBC 4.26 10^6/uL (3.5-6.1); RED CELL DISTRIBUTION WIDTH 14.1 % (11.5-14.5); WHITE BLOOD COUNT 6.6 10^3/uL (4.5-11.0)
[2018-06-20 08:16] LABS: BLOOD UREA NITROGEN 8 mg/dL (7-21); CALCIUM 8.7 mg/dL (8.4-10.5); GFR NON-AFRICAN AMERICAN > 60
[2018-06-20 08:56] VITALS: BP 108/63; PULSE 73; RESP 20; TEMP 97.9; O2SAT 93
[2018-06-20] MEDS: cefTRIAXone 1 gm 1 GM/100 ML BAG IVPB SCH (09:52)
[2018-06-20] MEDS: Multivitamin Therapeutic Tab PO SCH (09:53)
--- NOTE | 2018-06-20 10:22 | CP.PCM.PN ---
Subjective - Date & Time of Evaluation Date of Evaluation: 06/20/18 Time of Evaluation: 10:20 - Subjective Subjective: General Surgery Progress Note for Dr. Faustin Patient seen and evaluated at bedside this morning. Patient complains of lower abdominal tenderness. Patient tolerating diet. Patient endorses BM and is passing gas. Patient otherwise denies fever, chills, nausea and/or vomiting. Patient had colonoscopy yesterday; tolerated well. Objective - Vital Signs/Intake and Output Vital Signs (last 24 hours): Temp Pulse Resp BP Pulse Ox 97.9 F 73 20 108/63 93 L 06/20/18 08:55 06/20/18 09:53 06/20/18 08:55 06/20/18 09:53 06/20/18 08:55 Intake and Output: 06/20/18 06/20/18 06:59 18:59 Intake Total 1020 Balance 1020 - Medications Medications: Current Medications Aspirin (Ecotrin) 81 mg PO DAILY [facility] Last Admin: 06/20/18 09:50 Dose: 81 mg Atorvastatin Calcium (Lipitor) 40 mg PO DIN [facility] Last Admin: 06/19/18 18:19 Dose: 40 mg Chlordiazepoxide (Librium) 25 mg PO Q12 [facility]; Taper; Protocol Stop: 06/21/18 13:59 Last Admin: 06/20/18 09:51 Dose: 25 mg Folic Acid (Folic Acid) 1 mg PO DAILY [facility] Last Admin: 06/20/18 09:50 Dose: 1 mg Ceftriaxone Sodium (Rocephin 1 Gram Ivpb) 1 gm in 100 mls @ 100 mls/hr IVPB DAILY [facility]; Protocol Last Admin: 06/20/18 09:52 Dose: 100 mls/hr Metronidazole (Flagyl) 500 mg in 100 mls @ 100 mls/hr IVPB Q8 [facility]; Protocol Last Admin: 06/20/18 05:40 Dose: 100 mls/hr Lisinopril (Zestril) 10 mg PO DAILY [facility] Last Admin: 06/20/18 09:53 Dose: 10 mg Metoprolol Tartrate (Lopressor) 25 mg PO BID [facility] Last Admin: 06/20/18 09:51 Dose: 25 mg Multivitamins (Thera Tab) 1 tab PO 0800 [facility] Last Admin: 06/20/18 09:53 Dose: 1 tab Nicotine (Nicoderm Cq) 1 patch TD DAILY [facility] Last Admin: 06/20/18 09:52 Dose: 1 patch Thiamine HCl (Vitamin B1 Tab) 100 mg PO DAILY [facility] Last Admin: 06/20/18 09:53 Dose: 100 mg - Labs Labs: 06/20/18 07:00 06/20/18 07:00 PT 11.8 SECONDS (9.4-12.5) 06/19/18 05:01 INR 1.04 06/19/18 05:01 APTT 33.5 Seconds (26.9-38.3) 06/16/18 00:40 - Additional Findings Additional findings: - Constitutional Appears: No Acute Distress - Head Exam Head Exam: ATRAUMATIC - Eye Exam Eye Exam: EOMI - ENT Exam ENT Exam: Mucous Membranes Moist - Respiratory Exam Respiratory Exam: NORMAL BREATHING PATTERN - Cardiovascular Exam Cardiovascular Exam: absent: Tachycardia - GI/Abdominal Exam GI & Abdominal Exam: Hernia, Tenderness. absent: Distended Additional comments: mild tenderness in RLE b/l inguinal hernias, fat containing, non-incarcerated - Neurological Exam Neurological exam: Alert - Skin Skin Exam: Dry, Intact, Normal Color Assessment and Plan - Assessment and Plan (Free Text) Assessment: 57 year old male presents with bilateral fat-containing, non-incarcerated inguinal hernias and radiological findings concerning for enterocolitis Plan: Plan: Repeat Colonoscopy performed by GI yesterday; Patient tolerated well Recommended that Patient undergo sigmoid colectomy once pathology resulted Continue empiric antibiotics Antiemetics as needed for nausea Since bilateral inguinal hernias are reducible and non-incarcerated, and the patient has active infection, hernia repair at this time is not indicated Patient may follow up for elective hernia repair once infection resolves Case Operator consulted for disability, per Patient's request Patient seen and case discussed with Dr. Ramin Rebollar PGY1
--- NOTE | 2018-06-21 02:00 | DS ---
The patient was seen and examined at the bedside 06/20/2018. CHIEF COMPLAINT: Groin pain and abdominal pain. HISTORY OF PRESENT ILLNESS: Mr. Hayder Lindquist is a 57-year-old male with past medical history of hernia, hypertension, TIA, came to the emergency department was complaining of 1-week duration of pain, worsening groin pain secondary to previously diagnosed hernia. The patient noticed symptoms have been intermittent for the past 5 days and hernia surgery has been discussed with the surgeon multiple times, but he currently has no schedule appointment with the surgeon. He is very noncompliant for couple of months, he disappeared, and now came back. We admitted the patient, we did CAT scan of abdomen and pelvis, and abdominal ultrasound is done. Endoscopy is done. Seen by Dr. Eyad Faustin, Surgeon and Dr. Medina, cotton machine operator and went for colonoscopy. Procedure reviewed by me. The patient has colitis, got antibiotics, improved, and cleared by the surgeon and GI. The patient needs surgery as per Dr. Faustin, but want to schedule after completing treatment of the colitis. PAST MEDICAL HISTORY: Hypertension, kidney stones, and left inguinal hernia repair. FAMILY HISTORY: Father and mother noncontributory. SOCIAL HISTORY: Alcohol; yes. Substance abuse; no. Current smoking; yes. ALLERGIES: THE PATIENT IS NOT ALLERGIC WITH ANY MEDICATION. REVIEW OF SYSTEMS: The patient was seen and examined at the bedside, looking comfortable, and eager to go home. No abdominal pain. No hematuria. No hematochezia. The patient tolerated diet very well. Have bowel movement, passing gas. No fever, chills, nausea, or vomiting. Had colonoscopy yesterday, tolerated procedure very well. Biopsy result is pending. PHYSICAL EXAMINATION: VITAL SIGNS: Temperature 97.9, pulse 73, respiratory rate 20, blood pressure 108/63, and pulse oximetry 93. HEENT: Head is normocephalic and atraumatic. Eyes; PERRLA. Extraocular muscles intact. Conjunctivae clear. Nose patent. NECK: Supple. No carotid bruits. No JVD. No thyromegaly. CHEST: Bilaterally symmetrical. HEART: S1 and S2 positive. LUNGS: Clear to auscultation. ABDOMEN: Soft. Bowel sounds present. No organomegaly. EXTREMITIES: No edema. No cyanosis. NEUROLOGIC: The patient is awake, alert, and follow simple commands. MEDICATIONS: Ecotrin, atorvastatin, Librium, folic acid, Rocephin, Flagyl, Zestril, metoprolol, multivitamins, nicotine, and thiamine. LABORATORY DATA: White blood 6.6, hemoglobin 13.3, hematocrit 41.1, and platelets 267. Sodium 138, potassium 4.5, BUN 8, creatinine 0.7, and glucose 89. ASSESSMENT AND PLAN: Mr. Hayder Lindquist is a 57-year-old male with anemia, came with bilateral fat-containing nonincarcerated inguinal hernia. Radiological finding concerning about enterocolitis, history of ethanol abuse and smoking. Urged to quit smoking and alcohol use. Repeat colonoscopy done. The patient tolerated the procedure very well. Recommended the patient need to undergo sigmoid colostomy as soon as pathology results are available. The patient want to go home, cleared by the GI and Surgery. Discharged home with p.o. antibiotics. Meds at the bedside. Follow up with primary care physician, cotton machine operator, and surgeon. We will follow up. Suri Petty MD
== END 2018-06-20 13:16 | disposition home or self-care (01) | DRG 392 ==
LOC: ED 23:35 → ERH 06-16 04:46 → 3RSO 06-16 06:04
PROVIDERS: ADMIT Internal Medicine; ATTEND Internal Medicine
PROC: 0DBN8ZX Excision of Sigmoid Colon, Via Natural or Artificial Opening Endoscopic, Diagnostic (ICD-10-PCS; principal; 2018-06-19 14:00)
DX: K52.9 Noninfective gastroenteritis and colitis, unspecified (principal); K40.20 Bilateral inguinal hernia, without obstruction or gangrene, not specified as recurrent; Z86.73 Personal history of transient ischemic attack (TIA), and cerebral infarction without residual deficits; Z87.891 Personal history of nicotine dependence; J44.9 Chronic obstructive pulmonary disease, unspecified; F10.26 Alcohol dependence with alcohol-induced persisting amnestic disorder; Y90.7 Blood alcohol level of 200-239 mg/100 ml; K57.30 Diverticulosis of large intestine without perforation or abscess without bleeding; D64.9 Anemia, unspecified; E87.8 Other disorders of electrolyte and fluid balance, not elsewhere classified; D12.5 Benign neoplasm of sigmoid colon; K64.1 Second degree hemorrhoids; I10 Essential (primary) hypertension; Z87.442 Personal history of urinary calculi; Z85.828 Personal history of other malignant neoplasm of skin; Z86.010 Personal history of colon polyps; Z90.49 Acquired absence of other specified parts of digestive tract; Z91.19 Patient's noncompliance with other medical treatment and regimen

== ENCOUNTER 2018-07-05 08:53 | Inpatient (IN) | payer BC ==
[2018-07-05] MEDS ORDERED: Sodium Chloride 0.9% 1,000 ML IV STA (09:21)
[2018-07-05] MEDS ORDERED: Morphine 4 mg/ml ISec IVP STA (09:21)
--- NOTE | 2018-07-05 09:40 | ED PDOC ---
Arrival/HPI - General Chief Complaint: Abdominal Pain Time Seen by Provider: 07/05/18 09:13 Historian: Patient - History of Present Illness Narrative History of Present Illness (Text): 07/05/18 09:36 A 57 year old male, whose past medical history includes hypertension and left side inguinal hernia surgery, presents to the ED for abdominal pain since yesterday. Patient reports pain is in the right side abdomen and radiates to gr oin. Patient reports associated nausea and bloody stools but no vomiting, fevers, chills, headache, dizziness, chest pain, shortness of breath, dyspnea on exertion, cough, vomiting, diarrhea, back pain, neck pain, or any other complaint. Time/Duration: 24 hours Symptom Onset: Gradual Symptom Course: Unchanged Activities at Onset: Light Context: Home Past Medical History - Provider Review Nursing Documentation Reviewed: Yes - Infectious Disease Hx of Infectious Diseases: None - Cardiac Hx Cardiac Disorders: Yes Hx Hypertension: Yes - Pulmonary Hx Respiratory Disorders: No - Neurological Hx Neurological Disorder: Yes Hx Transient Ischemic Attacks (TIA): Yes - HEENT Hx HEENT Disorder: No - Renal Hx Renal Disorder: Yes Hx Kidney Stones: Yes - Endocrine/Metabolic Hx Endocrine Disorders: No - Hematological/Oncological Hx Blood Transfusions: No Hx Blood Transfusion Reaction: No - Integumentary Hx Dermatological Disorder: Yes Hx Basal Cell Carcinoma: Yes (back) - Musculoskeletal/Rheumatological Hx Musculoskeletal Disorders: Yes Hx Falls: No Hx Fractures: Yes (L hand) - Gastrointestinal Hx Gastrointestinal Disorders: Yes Hx Diverticulitis: Yes Other/Comment: inguinal hernia repair - Genitourinary/Gynecological Hx Genitourinary Disorders: No - Psychiatric Hx Psychophysiologic Disorder: Yes Hx Anxiety: No Hx Substance Use: No - Surgical History Hx Appendectomy: Yes Other/Comment: L INGUINAL HERNIA REPAIR as a child - Anesthesia Hx Anesthesia: Yes Hx Anesthesia Reactions: No Hx Malignant Hyperthermia: No - Suicidal Assessment Feels Threatened In Home Enviroment: No Family/Social History - Physician Review Nursing Documentation Reviewed: Yes Family/Social History: Unknown Family HX Smoking Status: Heavy Smoker > 10 Cigarettes Daily Hx Alcohol Use: Yes (5-6 beers/day) Hx Substance Use: No Hx Substance Use Treatment: No Allergies/Home Meds Allergies/Adverse Reactions: Allergies No Known Allergies Allergy (Verified 09/20/17 08:59) Review of Systems - Physician Review All systems were reviewed & negative as marked: Yes - Review of Systems Constitutional: absent: Fatigue Eyes: absent: Vision Changes ENT: absent: Hearing Changes Respiratory: absent: SOB, Cough Gastrointestinal: Abdominal Pain, Stool Changes (bloody stools), Nausea. absent: Vomiting Genitourinary Male: absent: Dysuria, Frequency Musculoskeletal: absent: Back Pain, Neck Pain Skin: absent: Rash Neurological: absent: Headache Endocrine: absent: Diaphoresis Hemo/Lymphatic: absent: Adenopathy Psychiatric: absent: Anxiety, Depression Physical Exam Vital Signs Reviewed: Yes Vital Signs Temp Pulse Resp BP Pulse Ox 07/05/18 09:25 98.1 F 86 16 127/73 97 Temperature: Afebrile Blood Pressure: Normal Pulse: Regular Respiratory Rate: Normal Appearance: Positive for: Well-Appearing, Non-Toxic, Comfortable, Uncomfortable Pain Distress: Severe Mental Status: Positive for: Alert and Oriented X 3 - Systems Exam Head: Present: Atraumatic, Normocephalic Pupils: Present: PERRL Extroacular Muscles: Present: EOMI Conjunctiva: Present: Normal Mouth: Present: Moist Mucous Membranes Neck: Present: Normal Range of Motion Respiratory/Chest: Present: Clear to Auscultation, Good Air Exchange. No: Respiratory Distress, Accessory Muscle Use Cardiovascular: Present: Regular Rate and Rhythm, Normal S1, S2. No: Murmurs Abdomen: Present: Tenderness (right abdominal tenderness Lower > upper, right inguinal hernia), Normal Bowel Sounds, Guarding. No: Distention, Peritoneal Signs, Rebound Rectal: Present: Other (rectal exam performed by Sx Resident who states BRB, nonthrombosed hernia, +guaic) Genitourinary Male: Present: Other (Bulge in right side of groin) Upper Extremity: Present: Normal Inspection, NORMAL PULSES. No: Cyanosis, Edema Lower Extremity: Present: Normal Inspection, NORMAL PULSES. No: Edema Neurological: Present: GCS=15, CN II-XII Intact, Speech Normal, Motor Func Grossly Intact, Normal Sensory Function Skin: Present: Warm, Dry, Normal Color. No: Rashes Psychiatric: Present: Alert, Oriented x 3, Normal Insight, Normal Concentration Medical Decision Making ED Course and Treatment: 07/05/18 09:42 Impression: a 57 year old male who presents to the ED for abdominal pain. Differential Diagnosis included but are not limited to: Right Inguinal Hernia r/o Obstruction Plan: -- Labs -- CT Scan -- EKG -- EKG -- Morphine -- Zofran -- IV Fluids -- Reassess and disposition Prior Visits: Notes and results from previous visits were reviewed. Progress Notes: EKG: NSR @ 89 bpm. Normal intervals. No ST elevations. Chest X-Ray: IMPRESSION: No active disease. 07/05/18 09:[address] Matt nursing surgical services director, will evaluate patient. Recommends CT scan of abdomen. CT PO and IV AbdPelv ordered 07/05/18 09:31 certified prosthetist vice president evaluated patient and will reduce hernia stat. 07/05/18 13:10 PROCEDURE: CT Abdomen and Pelvis with contrast BOWEL: Status post manual reduction of right inguinal hernia. The loops of bowel no longer reside within the inguinal canal, there is however fat and mesentery in the inguinal canal. There is no evidence of obstruction. However there is proximal small bowel dilatation disproportionate to that seen distally indicative of distal small bowel obstruction related to the hernia. Severe diverticulosis primarily about the sigmoid colon. Continue thickening of the wall of the sigmoid. No proximal colonic obstruction. Subtle thickening of the wall of the cecum and ascending colon in all likelihood related to underfilling although there is trace contrast in the ascending colon. A component of colitis should be considered. APPENDIX: No abnormalities to suggest acute appendicitis. IMPRESSION: 1. Status post recent manual reduction of right inguinal hernia. Proximal small bowel dilatation/obstruction remains. 2. Profound diverticular disease in the sigmoid colon. Follow-up recommended. 3. Inflammatory changes versus under filling of the cecum and ascending. Communication of results: I discussed findings with the attending physician in the emergency department Dr. Aguilera at 13:01. CT results was discussed with Dr. Faustin Resident who states to admit the patient to Dr. Mercedes service and they will be performing surgery most likely unless the clinical picture changes. They were also able to reduce the hernia so there was no concern for incarceration at this point. Patient is now comfortable but still has some pain. Discussed case with Dr. Petty who will place the patient on her service. - Critical Care Critical Care Minutes: 30 minutes - RAD Interpretation Radiology Orders: 07/05/18 09:22 CHEST PORTABLE [RAD] Stat 07/05/18 09:29 ABD PELVIS PO & IV CONTRAST [CT] Stat - Medication Orders Current Medication Orders: Sodium Chloride (Sodium Chloride 0.9%) 1,000 mls @ 100 mls/hr IV .Q10H STA Stop: 07/05/18 19:20 Discontinued Medications Morphine Sulfate (Morphine) 4 mg IVP STAT STA Stop: 07/05/18 09:22 Ondansetron HCl (Zofran Inj) 4 mg IVP STAT STA Stop: 07/05/18 09:30 - Scribe Statement The provider has reviewed the documentation as recorded by the Leonardo Tello Provider Scribe Attestation: All medical record entries made by the Scribe were at my direction and personally dictated by me. I have reviewed the chart and agree that the record accurately reflects my personal performance of the history, physical exam, medical decision making, and the department course for this patient. I have also personally directed, reviewed, and agree with the discharge instructions and disposition. Disposition/Present on Arrival - Present on Arrival Any Indicators Present on Arrival: No History of DVT/PE: No History of Uncontrolled Diabetes: No Urinary Catheter: No History of Decub. Ulcer: No History Surgical Site Infection Following: None - Disposition Have Diagnosis and Disposition been Completed?: Yes Diagnosis: Inguinal hernia, Abdominal pain, Small bowel obstruction Disposition Time: 13:06 Patient Plan: Admission Condition: GUARDED Referrals: Suri Petty MD [Primary Care Provider] - Follow up with primary Forms: [employer] (Portuguese)
[2018-07-05] MEDS ORDERED: Iohexol 240 (50 ml) ONE (09:46)
[2018-07-05 09:53] LABS: VENOUS BLOOD GAS BASE EXCESS 4.5 mmol/L (0.0-2.0); VENOUS BLOOD GAS PO2 58 mm/Hg (30-55); VENOUS BLOOD PH 7.56 (7.32-7.43)
--- NOTE | 2018-07-05 10:06 | CP.PCM.CON ---
History of Present Illness - History of Present Illness History of Present Illness: PGY1 General surgery consult note for Dr. Faustin This is a 57 year old male with PMhx of reducible bilateral inguinal hernias, diverticulitis, diverticulosis, HTN, Hypercholesterolemia, COPD, TIA who presented to the ED complaining of worsening right groin pain over the past 2 days. He was diagnosed with a right inguinal hernia 5 years ago and left inguinal hernia 1 year ago. He has been having intermittent pain for the past 5 years that worsens occasionally when hernia protrudes upon standing or coughing. He states that this pain was intermittent, until 2 pm on 07/04 when it became constant and 12/26. Denies radiation of pain. Last BM was described as loose bloody BM. He is passing flatus. Elective hernia repair was discussed at that time but patient failed to follow up. Patient also states he was diagnosed with a "colon mass" in the past reports having a colonoscopy 2 years ago but did not follow up. Pt had a repeat colonoscopy on 06/20/09, which showed diverticulosis of entire visualized colon, polypoid lesion in the sigmoid colon. 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 Pt was recommended f/u in 1 year for repeat colonoscopy. Currently, he denies fever, chills, chest pain, sob, abdominal pain, n/v/d, numbness or tingling, dizziness, headache. PMHx: bilateral inguinal hernias, diverticulitis, diverticulosis, HTN, Hyper cholesterolemia, COPD, TIA PSHx: Left inguinal hernia repair, appendectomy Meds: as per MAR Allx: NKDA Shx: Extensive smoking history. 5-6 beers daily Review of Systems - Review of Systems All systems: reviewed and no additional remarkable complaints except (as per hpi) Past Patient History - Infectious Disease Hx of Infectious Diseases: None - Past Medical History & Family History Past Medical History?: Yes - Past Social History Smoking Status: Heavy Smoker > 10 Cigarettes Daily - CARDIAC Hx Cardiac Disorders: Yes Hx Hypertension: Yes - PULMONARY Hx Respiratory Disorders: No - NEUROLOGICAL Hx Neurological Disorder: Yes Hx Transient Ischemic Attacks (TIA): Yes - HEENT Hx HEENT Problems: No - RENAL Hx Chronic Kidney Disease: Yes Hx Kidney Stones: Yes - ENDOCRINE/METABOLIC Hx Endocrine Disorders: No - HEMATOLOGICAL/ONCOLOGICAL Hx Blood Transfusions: No Hx Blood Transfusion Reaction: No - INTEGUMENTARY Hx Dermatological Problems: Yes Hx Basil Cell: Yes (back) - MUSCULOSKELETAL/RHEUMATOLOGICAL Hx Musculoskeletal Disorders: Yes Hx Falls: No Hx Fractures: Yes (L hand) - GASTROINTESTINAL Hx Gastrointestinal Disorders: Yes Hx Diverticulitis: Yes Other/Comment: inguinal hernia repair - GENITOURINARY/GYNECOLOGICAL Hx Genitourinary Disorders: No - PSYCHIATRIC Hx Psychophysiologic Disorder: Yes Hx Anxiety: No Hx Substance Use: No - SURGICAL HISTORY Hx Appendectomy: Yes Other/Comment: L INGUINAL HERNIA REPAIR as a child - ANESTHESIA Hx Anesthesia: Yes Hx Anesthesia Reactions: No Hx Malignant Hyperthermia: No Meds Allergies/Adverse Reactions: Allergies Allergy/AdvReac Type Severity Reaction Status Date / Time No Known Allergies Allergy Verified 09/20/17 08:59 - Medications Medications: Current Medications Sodium Chloride (Sodium Chloride 0.9%) 1,000 mls @ 100 mls/hr IV .Q10H STA Stop: 07/05/18 19:20 Last Admin: 07/05/18 09:53 Dose: 100 mls/hr Physical Exam - Constitutional Appears: Non-toxic, In Acute Distress (pain due to hernia) - Head Exam Head Exam: ATRAUMATIC, NORMAL INSPECTION - Eye Exam Eye Exam: EOMI, Normal appearance - ENT Exam ENT Exam: Mucous Membranes Moist - Respiratory Exam Respiratory Exam: Decreased Breath Sounds, Rhonchi, NORMAL BREATHING PATTERN. absent: Rales, Wheezes, Respiratory Distress, Stridor - Cardiovascular Exam Cardiovascular Exam: REGULAR RHYTHM, +S1 - GI/Abdominal Exam GI & Abdominal Exam: Guarding, Hernia (right inguinal hernia with TTP, no erythema or warmth), Soft, Tenderness (right groin). absent: Firm, Rebound, Rigid - Rectal Exam Rectal Exam: Hemorrhoids ((+) skin tags; (+) multiple external hemorrhoid; nontender, nonthrombosed. No internal hemorrhoids palpated. Dark red stool sample obtained, FOBT positvie). absent: Fecal Impaction Additional comments: Normal sphincter tone. - Extremities Exam Extremities exam: Negative for: calf tenderness - Neurological Exam Neurological exam: Alert, Oriented x3 - Psychiatric Exam Psychiatric exam: Normal Affect, Normal Mood - Skin Skin Exam: Dry, Normal Color, Warm Results - Vital Signs Recent Vital Signs: Last Vital Signs Temp 98.1 F 07/05/18 09:25 Pulse 86 07/05/18 09:25 Resp 16 07/05/18 09:25 BP 127/73 07/05/18 09:25 Pulse Ox 97 07/05/18 09:25 - Labs Result Diagrams: 07/05/18 09:26 07/05/18 09:26 Labs: Laboratory Results - last 24 hr 07/05/18 09:45 pO2 58 H VBG pH 7.56 H VBG pCO2 29.0 L VBG HCO3 26.0 VBG Total CO2 26.9 VBG O2 Sat (Calc) 96.2 H VBG Base Excess 4.5 H VBG Potassium 4.0 Sodium 135.0 Chloride 104.0 Glucose 111 H Lactate 0.9 FiO2 21.0 Crit Value Called To Crit Value Called By [id number] Blood Gas Notified Time 950 Venous Blood Potassium 4.0 Assessment & Plan - Assessment and Plan (Free Text) Assessment: This is a 57 year old male with PMhx of reducible bilateral inguinal hernias, diverticulitis, diverticulosis, HTN, Hypercholesterolemia, COPD, TIA who presented to the ED complaining of worsening right groin pain over the past 2 days. Plan: Right inguinal hernia, manually reduced Proximal small bowel dilatation/obstruction Hematochezia Abd/Pelv CT with po and IV contrast shows status post recent manual reduction of right inguinal hernia. Proximal small bowel dilattaion/obstruction remains. Profound diverticular disease in the sigmoid colon. Inflammatory changes versus under filling of the cecum and ascending. Labs reviewed: H/H is stable (13.2/39.7), baseline is 13-14. Lactate is 0.9 Morphine for pain management Pt will need medical optimization and cardiac risk stratification prior to surgical intervention. Stress test from 2017 is normal Echo from 2018 shows LVEF of approximately 55%, trace MR/TR. Plan for OR on saturday 07/08. Preop testing needed as well. NPO Case discussed with Dr. Ramin Rowland PGY1 Pager# [phone]
[2018-07-05 10:18] LABS: BASO # 0.03 K/mm3 (0.0-2.0); BASO % 0.5 % (0.0-3.0); EOS # 0.1 (0.0-0.7); EOS % 1.3 % (1.5-5.0); HEMOGLOBIN 13.2 g/dL (14.0-18.0); LYMPH # 0.5 (1.2-3.4); LYMPH % 9.5 % (22.0-35.0); MEAN CORPUSCULAR HEMOGLOBIN 30.9 pg (25.0-35.0); MEAN CORPUSCULAR HGB CONC 33.2 g/dl (31.0-37.0); MEAN PLATELET VOLUME 9.3 fl (7.0-11.0); MONO # 0.4 (0.1-0.6); MONO % 6.6 % (1.0-6.0); RBC 4.27 10^6/uL (3.5-6.1); RED CELL DISTRIBUTION WIDTH 14.3 % (11.5-14.5); WHITE BLOOD COUNT 5.5 10^3/uL (4.5-11.0)
[2018-07-05 10:29] LABS: INR 1.04; PARTIAL THROMBOPLASTIN TIME 33.2 Seconds (26.9-38.3); PROTHROMBIN TIME 11.7 SECONDS (9.4-12.5)
[2018-07-05 10:38] LABS: ALB/GLOB RATIO 1.3 (1.1-1.8); ALBUMIN 3.8 g/dL (3.0-4.8); ALT/SGPT 25 U/L (7-56); AST/SGOT 42 U/L (17-59); BLOOD UREA NITROGEN 15 mg/dL (7-21); CALCIUM 8.9 mg/dL (8.4-10.5); GFR NON-AFRICAN AMERICAN > 60; LIPASE 37 U/L (23-300)
[2018-07-05] MEDS ORDERED: Morphine 2 mg/ml ISec IVP STA (10:39)
--- NOTE | 2018-07-05 10:59 | RAD ---
Date of service: 07/05/2018 HISTORY: abd pain COMPARISON: 07/31/2014 TECHNIQUE: 1 view obtained. FINDINGS: LUNGS: No active pulmonary disease. PLEURA: No significant pleural effusion identified, no pneumothorax apparent. CARDIOVASCULAR: No aortic atherosclerotic calcification present. Normal cardiac size. No pulmonary vascular congestion. OSSEOUS STRUCTURES: No significant abnormalities. VISUALIZED UPPER ABDOMEN: Normal. OTHER FINDINGS: None. IMPRESSION: No active disease.
[2018-07-05] MEDS ORDERED: Iohexol 350 MG/100 ML VIAL ONE (11:08)
--- NOTE | 2018-07-05 13:11 | CT ---
Date of service: 07/05/2018 PROCEDURE: CT Abdomen and Pelvis with contrast HISTORY: abd pain, right ing hernia r/o incarc/obstruct Relevant recent history: The patient presented with acute right lower quadrant and abdominal pain with subsequent reduction of a right inguinal hernia. COMPARISON: 06/06/2018. CT abdomen and pelvis. TECHNIQUE: Intravenous contrast dose: 100 cc Omnipaque 350. Radiation dose: Total exam DLP = 370.50 mGy-cm. This CT exam was performed using one or more of the following dose reduction techniques: Automated exposure control, adjustment of the mA and/or kV according to patient size, and/or use of iterative reconstruction technique. FINDINGS: LOWER THORAX: Unremarkable. LIVER: Unremarkable. No gross lesion or ductal dilatation. GALLBLADDER AND BILE DUCTS: Unremarkable. PANCREAS: Unremarkable. No gross lesion or ductal dilatation. SPLEEN: Unremarkable. ADRENALS: Unremarkable. No mass. KIDNEYS AND URETERS: Unremarkable. No hydronephrosis. No solid mass. VASCULATURE: Atherosclerotic calcification and mural plaque present. Findings are seen throughout the aorta which is non aneurysmal. BOWEL: Status post manual reduction of right inguinal hernia. The loops of bowel no longer reside within the inguinal canal, there is however fat and mesentery in the inguinal canal. There is no evidence of obstruction. However there is proximal small bowel dilatation disproportionate to that seen distally indicative of distal small bowel obstruction related to the hernia. Severe diverticulosis primarily about the sigmoid colon. Continue thickening of the wall of the sigmoid. No proximal colonic obstruction. Subtle thickening of the wall of the cecum and ascending colon in all likelihood related to underfilling although there is trace contrast in the ascending colon. A component of colitis should be considered. APPENDIX: No abnormalities to suggest acute appendicitis. PERITONEUM: Unremarkable. No free fluid. No free air. LYMPH NODES: Unremarkable. No enlarged lymph nodes. BLADDER: Unremarkable. REPRODUCTIVE: Unremarkable. BONES: No acute fracture. OTHER FINDINGS: None. IMPRESSION: 1. Status post recent manual reduction of right inguinal hernia. Proximal small bowel dilatation/obstruction remains. 2. Profound diverticular disease in the sigmoid colon. Follow-up recommended. 3. Inflammatory changes versus under filling of the cecum and ascending. Communication of results: I discussed findings with the attending physician in the emergency department Dr. Aguilera at 13:01.
[2018-07-05] MEDS ORDERED: Morphine 2 mg/ml ISec IVP PRN (15:22)
[2018-07-05] MEDS ORDERED: Sodium Chloride 0.9% 1,000 ML IV SCH (20:00)
[2018-07-05 20:38] VITALS: BMI 22.7
[2018-07-05] MEDS ORDERED: Pneumococcal 23-Valent Vaccine IM ONE (22:10)
[2018-07-05] MEDS: Morphine 4 mg/ml ISec IVP PRN (22:22)
--- NOTE | 2018-07-05 23:50 | CARD ---
APPROVED REPORT Date of service: 07/05/2018 EKG Measurement Heart [id number] <Conclusion> Normal sinus rhythm Minimal voltage criteria for LVH, may be normal variant Abnormal ECG
--- NOTE | 2018-07-06 01:13 | HP ---
DATE OF EXAM: 07/05/2018 The patient was seen and examined at the bedside on 07/05/2018. CHIEF COMPLAINT: Worsening of right groin pain. HISTORY OF PRESENT ILLNESS: Mr. Hayder Lindquist is a 57-year-old male with past medical history of reducible bilateral inguinal hernia, diverticulitis, diverticulosis, hypertension, hypercholesterolemia, COPD, and TIA, came to the emergency department complaining of worsening of right groin pain over the past two days. He was diagnosed with right inguinal hernia 5 years ago and left inguinal hernia 1 year ago. He has been having intermittent pain for the past 5 years that worsens occasionally when hernia produces upon standing or coughing. He states that this pain was intermittent until 2 p.m. On 07/04/2018 when it became consistent and 12/26, denies radiation of the pain. Last bowel movement described likely loose movement. He is passing flatus. No fever. No chills. The patient has a history of colon mass also in the past. 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 The patient recommended to follow up in one year repeat colonoscopy, so we admitted the patient in ER, reduced the hernia and the patient start feeling a little bit better. PAST MEDICAL HISTORY: As above. Heavy smoker, hypertension, TIA, chronic kidney disease, kidney stones, history of basal cell carcinoma in the back, fracture of the left hand, diverticulosis, appendectomy, and inguinal hernia repair as a child. ALLERGY: THE PATIENT IS NOT ALLERGIC WITH ANY MEDICATION. HOME MEDICATIONS: The patient remember NS. PHYSICAL EXAMINATION: VITAL SIGNS: Temperature 98.1, pulse 86, respirations 16, blood pressure 127/73, and pulse oximetry 97. HEENT: Head is normocephalic and atraumatic. Eyes; PERRLA. Extraocular muscles intact. Conjunctivae clear. Nose patent. Mucous membranes moist. NECK: Supple. No carotid bruit. No JVD or thyromegaly. CHEST: Bilaterally symmetrical. HEART: S1 and S2 positive. LUNGS: Clear to auscultation. ABDOMEN: Soft. Bowel sounds present. No organomegaly. EXTREMITIES: No edema. No cyanosis. NEUROLOGIC: The patient is awake, alert, and moving all 4 extremities. No focal deficits. LABORATORY DATA: White blood cells 5.5, hemoglobin 13.2, hematocrit 39.7, and platelets 293. Sodium 137, potassium 4, BUN 15, creatinine 0.8, and glucose 106. ASSESSMENT AND PLAN: Mr. Hayder Lindquist is a 57-year-old male with anemia, history of inguinal hernias, at this time he came with right inguinal hernia that is manually reduced, proximal small bowel dilatation/obstruction, and hematochezia. Admitted the patient, called surgical consult with Dr. Faustin and gastrointestinal, Dr. Medina. The patient need Pulmonary and Cardiology clearance because of heavy smoking, history of chronic obstructive pulmonary disease, diverticulosis, diverticulitis, hypertension, hypercholesterolemia, history of heavy smoking, transient ischemic attack, kidney stones, history of basal cell in the back, left hand fracture, and history of inguinal hernia repair as a childhood. We admitted the patient, called surgical consult and gastrointestinal also. CAT scan of abdomen and pelvis done, reviewed by me and given nicotine patch. Repeat labs. We will follow up. Suri Petty MD MTDXochilt
[2018-07-06] MEDS: Morphine 4 mg/ml ISec IVP PRN (05:21)
[2018-07-06] MEDS: Pantoprazole 40 mg EC Tab PO SCH (06:20)
[2018-07-06 07:39] LABS: HEMOGLOBIN 12.5 g/dL (14.0-18.0); MEAN CELL VOLUME 94.1 fl (80.0-105.0); MEAN CORPUSCULAR HEMOGLOBIN 30.9 pg (25.0-35.0); MEAN CORPUSCULAR HGB CONC 32.8 g/dl (31.0-37.0); MEAN PLATELET VOLUME 9.6 fl (7.0-11.0); RBC 4.05 10^6/uL (3.5-6.1); RED CELL DISTRIBUTION WIDTH 14.1 % (11.5-14.5); WHITE BLOOD COUNT 5.9 10^3/uL (4.5-11.0)
--- NOTE | 2018-07-06 07:47 | CP.PCM.CON ---
History of Present Illness - History of Present Illness History of Present Illness: Awake, alert, no distress Reason for consultation: Pre-op risk stratification and cardiac clearance for surgery Brief history of present illness: A 57 year old male who came in to the ER due to worsening right groin pain over the past 2 days. He was diagnosed with a right inguinal hernia 5 years ago and left inguinal hernia 1 year ago. Elective hernia repair was scheduled but failed to follow up. History of reducible bilateral inguinal hernias, diverticulitis, diverticulosis, hypertension, Hypercholesterolemia, COPD, TIA, Left inguinal hernia repair, appendectomy, current smoker 1 1/4 pack a day, 5-6 beers daily. Seen and examined by me and Dr. Dean Review of Systems - Review of Systems All systems: reviewed and no additional remarkable complaints except Review of Systems: as per HPI Past Patient History - Infectious Disease Hx of Infectious Diseases: None - Past Medical History & Family History Past Medical History?: Yes - Past Social History Smoking Status: Light Smoker < 10 Cigarettes Daily - CARDIAC Hx Cardiac Disorders: Yes Hx Hypertension: Yes - PULMONARY Hx Respiratory Disorders: No - NEUROLOGICAL Hx Neurological Disorder: Yes Hx Transient Ischemic Attacks (TIA): Yes - HEENT Hx HEENT Problems: No - RENAL Hx Chronic Kidney Disease: Yes Hx Kidney Stones: Yes - ENDOCRINE/METABOLIC Hx Endocrine Disorders: No - HEMATOLOGICAL/ONCOLOGICAL Hx Blood Disorders: Yes Hx Cancer: Yes (skin ca basal cell removed from back) Hx Shingles: Yes (6 yrs ago) - INTEGUMENTARY Hx Dermatological Problems: Yes Hx Basil Cell: Yes (back) - MUSCULOSKELETAL/RHEUMATOLOGICAL Hx Musculoskeletal Disorders: Yes Hx Falls: No Hx Fractures: Yes (L hand) - GASTROINTESTINAL Hx Gastrointestinal Disorders: Yes Hx Diverticulitis: Yes Other/Comment: inguinal hernia repair - GENITOURINARY/GYNECOLOGICAL Hx Genitourinary Disorders: No - PSYCHIATRIC Hx Psychophysiologic Disorder: Yes Hx Anxiety: No Hx Substance Use: No - SURGICAL HISTORY Hx Appendectomy: Yes Other/Comment: L INGUINAL HERNIA REPAIR as a child - ANESTHESIA Hx Anesthesia: Yes Hx Anesthesia Reactions: No Hx Malignant Hyperthermia: No Meds Allergies/Adverse Reactions: Allergies Allergy/AdvReac Type Severity Reaction Status Date / Time No Known Allergies Allergy Verified 09/20/17 08:59 - Medications Medications: Current Medications Hydralazine HCl (Apresoline) 25 mg PO BID JOSIE Last Admin: 07/06/18 06:59 Dose: 25 mg Sodium Chloride (Sodium Chloride 0.9%) 1,000 mls @ 100 mls/hr IV .Q10H [facility] Lisinopril (Zestril) 10 mg PO DAILY [facility] Metoprolol Tartrate (Lopressor) 25 mg PO BID [facility] Last Admin: 07/05/18 21:18 Dose: 25 mg Morphine Sulfate (Morphine) 2 mg IVP Q6H PRN PRN Reason: Pain, moderate (4-7) Last Admin: 07/05/18 17:57 Dose: 2 mg Morphine Sulfate (Morphine) 4 mg IVP Q6H PRN PRN Reason: Pain, severe (8-10) Last Admin: 07/06/18 05:21 Dose: 4 mg Ondansetron HCl (Zofran Inj) 4 mg IVP Q6H PRN PRN Reason: Nausea/Vomiting Pantoprazole Sodium (Protonix Ec Tab) 40 mg PO 0600 [facility] Last Admin: 07/06/18 06:20 Dose: 40 mg Physical Exam - Constitutional Appears: Non-toxic, No Acute Distress - Head Exam Head Exam: NORMAL INSPECTION, NORMOCEPHALIC - Eye Exam Eye Exam: Normal appearance Pupil Exam: NORMAL ACCOMODATION - ENT Exam ENT Exam: Mucous Membranes Moist, Normal Exam - Respiratory Exam Respiratory Exam: Decreased Breath Sounds, Clear to Auscultation Bilateral, NORMAL BREATHING PATTERN - Cardiovascular Exam Cardiovascular Exam: +S1, +S2 - GI/Abdominal Exam GI & Abdominal Exam: Normal Bowel Sounds, Soft - Neurological Exam Neurological exam: Alert, Oriented x3 - Psychiatric Exam Psychiatric exam: Normal Affect, Normal Mood - Skin Skin Exam: Dry, Normal Color, Warm Results - Vital Signs Recent Vital Signs: Last Vital Signs Temp 98.2 F 07/05/18 15:19 Pulse 64 07/06/18 06:59 Resp 18 07/05/18 20:21 BP 182/100 H 07/06/18 06:59 Pulse Ox 97 07/05/18 15:19 - Labs Result Diagrams: 07/06/18 07:00 07/06/18 07:00 Labs: Laboratory Results - last 24 hr 07/05/18 07/05/18 07/05/18 09:26 09:26 09:26 WBC 5.5 RBC 4.27 Hgb 13.2 L Hct 39.7 L MCV 93.0 D MCH 30.9 MCHC 33.2 RDW 14.3 Plt Count 293 MPV 9.3 Neut % (Auto) 82.1 H Lymph % (Auto) 9.5 L [place] % (Auto) 6.6 H Eos % (Auto) 1.3 L Baso % (Auto) 0.5 Lymph # (Auto) 0.5 L [place] # (Auto) 0.4 Eos # (Auto) 0.1 Baso # (Auto) 0.03 Absolute Neuts (auto) 4.48 PT 11.7 INR 1.04 APTT 33.2 pO2 VBG pH VBG pCO2 VBG HCO3 VBG Total CO2 VBG O2 Sat (Calc) VBG Base Excess VBG Potassium Glucose Lactate FiO2 Crit Value Called To Crit Value Called By Blood Gas Notified Time Sodium 137 Potassium 4.0 Chloride 103 Carbon Dioxide 26 Anion Gap 12 BUN 15 Creatinine 0.8 Est GFR ( Amer) > 60 Est GFR (Non-Af Amer) > 60 Random Glucose 106 Calcium 8.9 Magnesium 1.9 Total Bilirubin 0.5 AST 42 ALT 25 Alkaline Phosphatase 60 Total Protein 6.7 Albumin 3.8 Globulin 2.9 Albumin/Globulin Ratio 1.3 Lipase 37 Venous Blood Potassium Blood Type Antibody Screen BBK History Checked 07/05/18 07/05/18 09:26 09:45 WBC RBC Hgb Hct MCV MCH MCHC RDW Plt Count MPV Neut % (Auto) Lymph % (Auto) [place] % (Auto) Eos % (Auto) Baso % (Auto) Lymph # (Auto) [place] # (Auto) Eos # (Auto) Baso # (Auto) Absolute Neuts (auto) PT INR APTT pO2 58 H VBG pH 7.56 H VBG pCO2 29.0 L VBG HCO3 26.0 VBG Total CO2 26.9 VBG O2 Sat (Calc) 96.2 H VBG Base Excess 4.5 H VBG Potassium 4.0 Glucose 111 H Lactate 0.9 FiO2 21.0 Crit Value Called To Crit Value Called By [id number] Blood Gas Notified Time 950 Sodium 135.0 Potassium Chloride 104.0 Carbon Dioxide Anion Gap BUN Creatinine Est GFR ( Amer) Est GFR (Non-Af Amer) Random Glucose Calcium Magnesium Total Bilirubin AST ALT Alkaline Phosphatase Total Protein Albumin Globulin Albumin/Globulin Ratio Lipase Venous Blood Potassium 4.0 Blood Type B POSITIVE Antibody Screen Negative BBK History Checked Patient has bt Assessment & Plan - Assessment and Plan (Free Text) Assessment: A 57 year old male who came in to the ER due to worsening right groin pain over the past 2 days. He was diagnosed with a right inguinal hernia 5 years ago and left inguinal hernia 1 year ago. Elective hernia repair was scheduled but failed to follow up. History of reducible bilateral inguinal hernias, diverticulitis, diverticulosis, hypertension, Hypercholesterolemia, COPD, TIA, Left inguinal h ernia repair, appendectomy, current smoker 1 1/4 pack a day, 5-[address] of Status post manual reduction of right inguinal hernia in the ER. CT of abdomen and pelvis showed status post manual reduction of right inguinal hernia, proximal small bowel dilatation and obstruction remains. Profound diverticular disease in the sigmoid colon. EKG showed normal sinus rhythm, chest X ray unremarkable.Stress test done on 05/03/16 showed normal result, no ischemia, LVEF 68%. Echo done on 09/21/17 and showed LVEF 55%, trace mitral and tricuspid regurgitation. RVSP 17 mmHg. Denies chest pain. Denies shortness of breath. No evidence of myocardial ischemia or heart failure. No absolute contraindication for hernia repair surgery. Cleared for surgery with moderate risk considering co-morbidities. Uncontrolled hypertension. Plan: Denies chest pain or shortness of breath Heart rate stable Uncontrolled Blood pressure Hydralazine PRN Cleared for surgery with moderate risk On Hydralazine 25 mg BID, Lisinopril 10 mg daily, Lopressor 25 mg BID Pain management, PRN Morphine Lovenox for DVT prophylaxis Continue current treatment Continue current medications Low dose betablocker to prevent arrhythmia Lifestyle modifications Smoking cessation Nicoderm patch TSH, lipid panel, HgbA1C Will follow up Plan and treatment discussed with Dr. Dean Thank you Dr. Petty for the opportunity of taking care of Hayder Lindquist - Date & Time Date: 07/06/18 Time: 06:35
[2018-07-06 07:50] LABS: BLOOD UREA NITROGEN 12 mg/dL (7-21); CALCIUM 8.4 mg/dL (8.4-10.5); GFR NON-AFRICAN AMERICAN > 60; HDL CHOLESTEROL 38 mg/dL (29-60)
[2018-07-06 07:52] LABS: IRON 17 ug/dL (45-180)
[2018-07-06 08:01] LABS: LDL CHOLESTEROL 102 mg/dL (0-129)
[2018-07-06 08:02] LABS: % IRON SATURATION 7 % (20-55); TOTAL IRON BINDING CAPACITY 240 ug/dL (261-462)
--- NOTE | 2018-07-06 08:11 | CP.PCM.PN ---
Subjective - Date & Time of Evaluation Date of Evaluation: 07/06/18 Time of Evaluation: 06:50 - Subjective Subjective: General surgery progress note for Dr. Lynn Matt, PGY-2 Pt seen/examined at bedside with surgical team Pt reports right groin pain much improved, still has abdominal pain. Having flatus. Denies BM, N & V, F & C. Other complaints. Asking for food Objective - Vital Signs/Intake and Output Vital Signs (last 24 hours): Temp Pulse Resp BP Pulse Ox 98 F 64 20 182/100 H 96 07/06/18 06:00 07/06/18 06:59 07/06/18 06:00 07/06/18 06:59 07/06/18 06:00 Intake and Output: 07/06/18 07/06/18 06:59 18:59 Intake Total 0 Balance 0 - Medications Medications: Current Medications Hydralazine HCl (Apresoline) 25 mg PO BID [facility] Last Admin: 07/06/18 06:59 Dose: 25 mg Sodium Chloride (Sodium Chloride 0.9%) 1,000 mls @ 100 mls/hr IV .Q10H [facility] Lisinopril (Zestril) 10 mg PO DAILY [facility] Metoprolol Tartrate (Lopressor) 25 mg PO BID [facility] Last Admin: 07/05/18 21:18 Dose: 25 mg Morphine Sulfate (Morphine) 2 mg IVP Q6H PRN PRN Reason: Pain, moderate (4-7) Last Admin: 07/05/18 17:57 Dose: 2 mg Morphine Sulfate (Morphine) 4 mg IVP Q6H PRN PRN Reason: Pain, severe (8-10) Last Admin: 07/06/18 05:21 Dose: 4 mg Ondansetron HCl (Zofran Inj) 4 mg IVP Q6H PRN PRN Reason: Nausea/Vomiting Pantoprazole Sodium (Protonix Ec Tab) 40 mg PO 0600 [facility] Last Admin: 07/06/18 06:20 Dose: 40 mg - Labs Labs: 07/06/18 07:00 07/06/18 07:00 PT 11.7 SECONDS (9.4-12.5) 07/05/18 09:26 INR 1.04 07/05/18 09:26 APTT 33.2 Seconds (26.9-38.3) 07/05/18 09:26 - Constitutional Appears: Non-toxic, No Acute Distress - Head Exam Head Exam: ATRAUMATIC, NORMAL INSPECTION, NORMOCEPHALIC - Eye Exam Eye Exam: EOMI, Normal appearance - ENT Exam ENT Exam: Mucous Membranes Moist, Normal Exam - Neck Exam Neck Exam: Full ROM - Respiratory Exam Respiratory Exam: NORMAL BREATHING PATTERN - GI/Abdominal Exam GI & Abdominal Exam: Soft, Tenderness (mild, over RLQ), Hernia (R groin defect, hernia reduced). absent: Distended, Firm, Guarding - Neurological Exam Neurological Exam: Alert, Awake, CN II-XII Intact, Oriented x3 - Psychiatric Exam Psychiatric exam: Normal Affect, Normal Mood - Skin Skin Exam: Dry, Intact, Normal Color, Warm Assessment and Plan - Assessment and Plan (Free Text) Assessment: 57 M w/B/L inguinal hernias with right inguinal hernia recently manually reduced Plan: Ok for regular diet OOBTC Ambulate Pain control No heavy lifting Monitor for bowel function- having flatus currently Plan for OR on Saturday 07/08 Needs cardiac risk stratification and medical optimization NATE Matt, PGY-2
[2018-07-06] MEDS: Enoxaparin 30 mg Syringe SC SCH (09:27)
[2018-07-06] MEDS ORDERED: Potassium Chloride 20 mEq ER Tab PO ONE (09:55)
[2018-07-06] MEDS ORDERED: Albuterol-Ipratrop 3 mg / 0.5 (3 ml) UD IH PRN (10:37)
--- NOTE | 2018-07-06 12:00 | CON ---
DATE: 07/06/2018 PULMONARY CONSULT NOTE REFERRING PHYSICIAN: Dr. Suri Petty. REASON FOR CONSULT: Cough and shortness of breath. HISTORY OF PRESENT ILLNESS: This is a 57-year-old male. Past medical history significant for hypertension, left-sided inguinal hernia, diverticulitis, diverticulosis, COPD and TIA. He came to the emergency department complaining of worsening right groin pain. Reports that he had associated nausea and bloody stool with pain; was diagnosed with right inguinal hernia five years ago and left inguinal hernia one year ago. Reports that he is a current smoker; smokes about one pack a day. Today, the patient is seen lying in bed. States that he is having some right lower quadrant pain. States that he does get short of breath with exertion, has coughing. PAST MEDICAL HISTORY: Smoker, hypertension, TIA, chronic kidney disease, kidney stones, history of basal cell carcinoma in the back, fracture of left hand, diverticulosis, appendectomy, inguinal hernia repair as a child, COPD, hypertension, hypercholesterolemia, diverticulitis, and reducible bilateral inguinal hernia. ALLERGIES: NO KNOWN ALLERGIES. FAMILY HISTORY: No cardiopulmonary disease reported. SOCIAL HISTORY: Smoker. No EtOH abuse. No illicit drug use. MEDICATIONS: Reviewed. Lipitor 10 mg at dinner, Lovenox 30 mg subcutaneous daily, hydralazine 25 mg twice a day, lisinopril 10 mg daily, metoprolol tartrate 25 mg twice a day, morphine sulfate 2 mg IV push every 6 hours p.r.n., morphine 4 mg IV push every 6 hours p.r.n., nicotine patch transdermal daily, Zofran 4 mg IV push every 6 hours p.r.n., Protonix 40 mg daily, and sodium chloride 0.9% a 1000 mL at 100 mL per hour. REVIEW OF SYSTEMS: No headache, rhinitis, chest pain, nausea, vomiting, diarrhea, leg pain, leg swelling. Reports shortness of breath with exertion, occasional cough. Reports right lower abdomen pain. PHYSICAL EXAMINATION: GENERAL: No acute distress. VITAL SIGNS: Blood pressure 176/94, pulse 64, temperature 98, and oxygen saturation 96% on room air. HEENT: Moist mucous membranes. Mallampati score 4. NECK: Supple. No JVD. Short and thick. RESPIRATORY: Diffuse scattered rhonchi. CARDIOVASCULAR: S1 and S2. ABDOMEN: Soft and tender over right lower quadrant. EXTREMITIES: No bilateral lower extremity edema. NEUROLOGIC: Awake, alert, and verbal; following commands. LABORATORY DATA: Reviewed. WBC 5.9, RBC 4.05, hemoglobin 12.5, hematocrit 38.1, and platelets 272. PT 11.7, INR 1.04, and APTT 33.2. PO2 of 58, venous blood gas pH 7.56, venous blood gas pCO2 of 29 and venous blood gas HCO3 of 26 on room air. Sodium 136, potassium 3.7, chloride 104, carbon dioxide 26, anion gap 10, BUN 12, creatinine 0.7, GFR greater than 60, random glucose 57, calcium 8.4, iron 17, TIBC 240 and percent saturation 7. Triglycerides 163, cholesterol 165, LDL cholesterol 102, HDL cholesterol 38 and TSH 3.61. Chest x-ray showed no active disease. EKG; normal sinus rhythm. Abdominal pelvis CT shows status post recent manual reduction of right inguinal hernia, proximal small bowel dilation or obstruction, profound diverticular disease in sigmoid colon, inflammatory changes versus under filling of the cecum and ascending. IMPRESSION AND PLAN: Bilateral inguinal hernia, proximal small bowel dilatation/obstruction, history of anemia, chronic obstructive pulmonary disease, hypertension, diverticulosis, and suspected sleep apnea syndrome. Continue gastric prophylaxis and deep venous thrombosis prophylaxis. We will place the patient on inhaled bronchodilators for chronic lung disease. Sleep apnea precaution; head of bed elevated at 45 degrees. Continue nicotine patch. We recommend close cardiopulmonary monitoring while sedated. Surgical followup and Gastroenterology followup. This patient was seen and examined with Dr. Navarro. Discussed assessment and plan as described above. This patient was seen and examined with David Mcnamara, nurse practitioner. Discussed assessment and plan as described above. Thank you for this consult. We will follow with you. David Mcnamara APN Emory Navarro MD ANTONIA
[2018-07-06] MEDS: Budesonide 0.5 mg/2 ml Inhal Susp UD IH SCH (19:21)
[2018-07-06] MEDS: Arformoterol 15 mcg/2 ml Inh Sol IH SCH (19:21)
--- NOTE | 2018-07-07 04:03 | PN ---
DATE: 07/06/2018 SUBJECTIVE: This is a 57-year-old male. The patient is seen and examined at the bedside on 07/06/2018. Looking comfortable. Feels well. No fever. No chills. No hematuria. No hematochezia. No headaches. No dizziness. No chest pain. No palpitation. Has minimal to light tenderness and mass in the abdomen. PHYSICAL EXAMINATION: VITAL SIGNS: Blood pressure 170/90, pulse 64, temperature 98.1, oxygen saturation 96% on room air. HEENT: Head: Normocephalic and atraumatic. Eyes: PERRLA. Extraocular muscles intact. Conjunctivae clear. Nose patent. Mucous membranes moist. NECK: Supple. No carotid bruits. No JVD or thyromegaly. CHEST: Bilaterally symmetrical. HEART: S1 and S2 positive. LUNGS: Clear to auscultation. ABDOMEN: Soft. Tender in both groin areas. No organomegaly. LABORATORY DATA: White blood cells 5.9, hemoglobin 12.5, and hematocrit 38.1. BUN 12, creatinine 0.7, potassium 3.7, sodium 136, blood sugar 102. ASSESSMENT AND PLAN: Mr. Hayder Lindquist is a 57-year-old male with multiple medical problems, bilateral inguinal hernia, proximal small bowel dilatation and obstruction, history of anemia, chronic obstructive lung disease, history of heavy smoking, hypertension, diverticulitis, and sleep apnea syndrome. Continue gastric prophylaxis, deep vein thrombosis prophylaxis. I put the patient on inhaled bronchodilators for chronic cough and chronic obstructive pulmonary disease. Sleep apnea precautions, nicotine patch given. Pulmonary is recommending close cardiopulmonary monitoring while sedated. Gastrointestinal and deep venous thrombosis prophylaxis. I appreciated Dr. Navarro, Dr. Dean, and Dr. Faustin's note. Discussion was done with the patient. His friend was sitting on the bedside. We will follow up. Suri Petty MD
[2018-07-07] MEDS: Pantoprazole 40 mg EC Tab PO SCH (05:20)
--- NOTE | 2018-07-07 06:55 | CP.PCM.PN ---
Subjective - Date & Time of Evaluation Date of Evaluation: 07/07/18 Time of Evaluation: 06:50 - Subjective Subjective: Lying in bed, awake, alert, no distress Reason for consultation and follow up: Pre-op risk stratification and cardiac clearance for surgery, History of reducible bilateral inguinal hernias, diverticulitis, diverticulosis, hypertension, Hypercholesterolemia, COPD, TIA, Left inguinal hernia repair, appendectomy, current smoker 1 1/4 pack a day, 5-6 beers daily. Seen and examined by me and Dr. Dean Objective - Vital Signs/Intake and Output Vital Signs (last 24 hours): Temp Pulse Resp BP Pulse Ox 98.2 F 60 18 150/88 97 07/06/18 22:40 07/06/18 22:40 07/06/18 22:40 07/06/18 22:40 07/06/18 22:40 - Medications Medications: Current Medications Albuterol/Ipratropium (Duoneb 3 Mg/0.5 Mg (3 Ml) Ud) 3 ml IH [id number] PRN PRN Reason: Shortness of Breath Arformoterol Tartrate (Brovana) 15 mcg IH [id number] [facility] Last Admin: 07/06/18 19:21 Dose: 15 mcg Atorvastatin Calcium (Lipitor) 10 mg PO DIN [facility] Last Admin: 07/06/18 17:43 Dose: 10 mg Budesonide (Pulmicort Respules) 0.5 mg IH [id number] [facility] Last Admin: 07/06/18 19:21 Dose: 0.5 mg Enoxaparin Sodium (Lovenox) 30 mg SC DAILY [facility]; Protocol Last Admin: 07/06/18 09:27 Dose: 30 mg Hydralazine HCl (Apresoline) 25 mg PO BID [facility] Last Admin: 07/06/18 17:43 Dose: 25 mg Lisinopril (Zestril) 10 mg PO DAILY [facility] Last Admin: 07/06/18 09:25 Dose: 10 mg Metoprolol Tartrate (Lopressor) 25 mg PO BID [facility] Last Admin: 07/06/18 17:45 Dose: 25 mg Morphine Sulfate (Morphine) 2 mg IVP Q6H PRN PRN Reason: Pain, moderate (4-7) Last Admin: 07/05/18 17:57 Dose: 2 mg Morphine Sulfate (Morphine) 4 mg IVP Q6H PRN PRN Reason: Pain, severe (8-10) Last Admin: 07/06/18 05:21 Dose: 4 mg Nicotine (Nicoderm Cq) 1 patch TD DAILY [facility] Last Admin: 07/06/18 09:26 Dose: 1 patch Ondansetron HCl (Zofran Inj) 4 mg IVP Q6H PRN PRN Reason: Nausea/Vomiting Pantoprazole Sodium (Protonix Ec Tab) 40 mg PO 0600 [facility] Last Admin: 07/07/18 05:20 Dose: 40 mg - Labs Labs: 07/06/18 07:00 07/06/18 07:00 PT 11.7 SECONDS (9.4-12.5) 07/05/18 09:26 INR 1.04 07/05/18 09:26 APTT 33.2 Seconds (26.9-38.3) 07/05/18 09:26 - Constitutional Appears: Non-toxic, No Acute Distress - Head Exam Head Exam: NORMAL INSPECTION, NORMOCEPHALIC - Eye Exam Eye Exam: Normal appearance Pupil Exam: NORMAL ACCOMODATION - ENT Exam ENT Exam: Mucous Membranes Moist, Normal Exam - Respiratory Exam Respiratory Exam: Decreased Breath Sounds, NORMAL BREATHING PATTERN - Cardiovascular Exam Cardiovascular Exam: +S1, +S2 - GI/Abdominal Exam GI & Abdominal Exam: Soft, Normal Bowel Sounds - Extremities Exam Extremities Exam: Full ROM, Normal Capillary Refill - Neurological Exam Neurological Exam: Alert, Awake, Oriented x3 - Psychiatric Exam Psychiatric exam: Normal Affect, Normal Mood - Skin Skin Exam: Dry, Normal Color Assessment and Plan - Assessment and Plan (Free Text) Assessment: A 57 year old male who came in to the ER due to worsening right groin pain over the past 2 days. He was diagnosed with a right inguinal hernia 5 years ago and left inguinal hernia 1 year ago. Elective hernia repair was scheduled but failed to follow up. History of reducible bilateral inguinal hernias, diverticulitis, diverticulosis, hypertension, Hypercholesterolemia, COPD, TIA, Left inguinal hernia repair, appendectomy, current smoker 1 1/4 pack a day, 5-[address] of Status post manual reduction of right inguinal hernia in the ER. CT of abdomen and pelvis showed status post manual reduction of right inguinal hernia, proximal small bowel dilatation and obstruction remains. Profound diverticular disease in the sigmoid colon. EKG showed normal sinus rhythm, chest X ray unremarkable.Stress test done on 05/03/16 showed normal result, no ischemia, LVEF 68%. Echo done on 09/21/17 and showed LVEF 55%, trace mitral and tricuspid regurgitation. RVSP 17 mmHg. Denies chest pain. Denies shortness of breath. No evidence of myocardial ischemia or heart failure. No absolute contraindication for hernia repair surgery. Cleared for surgery with moderate risk considering co-morbidities. Blood pressure controlled. For right hernia repair surgery tomorrow. Plan: For right hernia repair surgery tomorrow Cleared for surgery with moderate risk Denies chest pain or shortness of breath Heart rate stable Blood pressure controlled. On Lipitor 10 mg daily, Hydralazine 25 mg BID, Lisinopril 10 mg daily, Lopressor 25 mg BID. Nicoderm patch daily Hold Lovenox tomorrow Continue current treatment Continue current medications Lifestyle modifications Smoking cessation Will follow up Plan and treatment discussed with Dr. Dean
[2018-07-07] MEDS: Arformoterol 15 mcg/2 ml Inh Sol IH SCH ×2 (07:25→20:23)
[2018-07-07] MEDS: Budesonide 0.5 mg/2 ml Inhal Susp UD IH SCH ×2 (07:25→20:23)
--- NOTE | 2018-07-07 07:35 | CP.PCM.PN ---
Subjective - Date & Time of Evaluation Date of Evaluation: 07/07/18 Time of Evaluation: 06:50 - Subjective Subjective: General surgery progress note for Dr. Lynn Matt, PGY-2 Pt seen/examined at bedside Pt reports increased frequency of having to reduce his right inguinal hernia, now notes discomfort at left groin site as well. No BM. Having flatus, tolerating diet, ambulating. Denies N & V, F & C. Objective - Vital Signs/Intake and Output Vital Signs (last 24 hours): Temp Pulse Resp BP Pulse Ox 98.2 F 60 18 150/88 97 07/06/18 22:40 07/06/18 22:40 07/06/18 22:40 07/06/18 22:40 07/06/18 22:40 - Medications Medications: Current Medications Albuterol/Ipratropium (Duoneb 3 Mg/0.5 Mg (3 Ml) Ud) 3 ml IH [id number] PRN PRN Reason: Shortness of Breath Arformoterol Tartrate (Brovana) 15 mcg IH [id number] [facility] Last Admin: 07/07/18 07:25 Dose: 15 mcg Atorvastatin Calcium (Lipitor) 10 mg PO DIN [facility] Last Admin: 07/06/18 17:43 Dose: 10 mg Budesonide (Pulmicort Respules) 0.5 mg IH [id number] [facility] Last Admin: 07/07/18 07:25 Dose: 0.5 mg Enoxaparin Sodium (Lovenox) 30 mg SC DAILY [facility]; Protocol Last Admin: 07/06/18 09:27 Dose: 30 mg Hydralazine HCl (Apresoline) 25 mg PO BID [facility] Last Admin: 07/06/18 17:43 Dose: 25 mg Lisinopril (Zestril) 10 mg PO DAILY [facility] Last Admin: 07/06/18 09:25 Dose: 10 mg Metoprolol Tartrate (Lopressor) 25 mg PO BID [facility] Last Admin: 07/06/18 17:45 Dose: 25 mg Morphine Sulfate (Morphine) 2 mg IVP Q6H PRN PRN Reason: Pain, moderate (4-7) Last Admin: 07/05/18 17:57 Dose: 2 mg Morphine Sulfate (Morphine) 4 mg IVP Q6H PRN PRN Reason: Pain, severe (8-10) Last Admin: 07/06/18 05:21 Dose: 4 mg Nicotine (Nicoderm Cq) 1 patch TD DAILY [facility] Last Admin: 07/06/18 09:26 Dose: 1 patch Ondansetron HCl (Zofran Inj) 4 mg IVP Q6H PRN PRN Reason: Nausea/Vomiting Pantoprazole Sodium (Protonix Ec Tab) 40 mg PO 0600 [facility] Last Admin: 07/07/18 05:20 Dose: 40 mg - Labs Labs: 07/06/18 07:00 07/06/18 07:00 PT 11.7 SECONDS (9.4-12.5) 07/05/18 09:26 INR 1.04 07/05/18 09:26 APTT 33.2 Seconds (26.9-38.3) 07/05/18 09:26 - Constitutional Appears: Non-toxic, No Acute Distress - Head Exam Head Exam: ATRAUMATIC, NORMAL INSPECTION, NORMOCEPHALIC - Eye Exam Eye Exam: EOMI, Normal appearance - ENT Exam ENT Exam: Mucous Membranes Moist, Normal Exam - Neck Exam Neck Exam: Normal Inspection - Respiratory Exam Respiratory Exam: NORMAL BREATHING PATTERN - Cardiovascular Exam Cardiovascular Exam: REGULAR RHYTHM, +S1, +S2 - GI/Abdominal Exam GI & Abdominal Exam: Soft, Tenderness (mild, over lower quadrants), Hernia (inguinal, bilateral, reducible). absent: Distended, Guarding, Rigid - Neurological Exam Neurological Exam: Alert, Awake, CN II-XII Intact, Oriented x3 - Psychiatric Exam Psychiatric exam: Normal Affect, Normal Mood - Skin Skin Exam: Dry, Intact, Normal Color, Warm Assessment and Plan - Assessment and Plan (Free Text) Assessment: 57M w/bilateral inguinal hernias Plan: Plan for OR in AM 07/08 Consent in chart Ok for diet during the day NPO pMN FU AM labs OOBTC Ambulate Pain control PRN Further care as per primary Will DW Dr. Ramin Matt, PGY-2
[2018-07-07] MEDS: Enoxaparin 30 mg Syringe SC SCH (09:45)
--- NOTE | 2018-07-07 13:49 | PN ---
DATE: 07/07/2018 PULMONARY PROGRESS NOTE REFERRING PHYSICIAN: Dr. Suri Petty. SUBJECTIVE: The patient is seen lying in bed. No acute distress. No overnight events reported. Reports that he still has occasional nonproductive cough. No shortness of breath. He states that abdominal pain has improved some. No headache, rhinitis, chest pain, nausea, vomiting, diarrhea, leg pain, or leg swelling reported. OBJECTIVE: GENERAL: No acute distress. VITAL SIGNS: Blood pressure 160/84, pulse 59, temperature 98.1, and oxygen saturation 96% on room air. HEENT: Moist mucous membranes. Mallampati score 4. NECK: Supple. No JVD. Short and thick. RESPIRATORY: Scattered rhonchi bilaterally. CARDIOVASCULAR: S1 and S2. ABDOMEN: Soft. Mild tenderness to the right lower quadrant. EXTREMITIES: No bilateral lower extremity edema. NEUROLOGIC: Awake, alert, and verbal; following commands. MEDICATIONS: Reviewed. DuoNeb 3 mL inhalation every 4 hours p.r.n., Brovana 15 mcg inhalation every 12 hours, Lipitor 10 mg at dinner, Pulmicort 0.5 mg inhalation every 12 hours, Lovenox 30 mg subcutaneous daily, hydralazine 25 mg twice a day, lisinopril 10 mg daily, metoprolol tartrate 25 mg twice a day, morphine sulfate 2 mg IV push every 6 hours p.r.n., morphine 4 mg IV push every 6 hours p.r.n., nicotine patch transdermal daily, Zofran 4 mg IV push every 6 hours p.r.n., and Protonix 40 mg daily. LABORATORY DATA: Reviewed. No new labs since yesterday. IMPRESSION AND PLAN: Bilateral inguinal hernia, proximal small bowel dilatation and obstruction, history of anemia, chronic obstructive pulmonary disease, hypertension, diverticulosis, and suspected sleep apnea syndrome. Continue gastric prophylaxis; deep venous thrombosis prophylaxis. Continue inhaled bronchodilators, head of bed elevated at 45 degrees, sleep apnea precaution, and nicotine patch for smoking cessation. Recommend close cardiopulmonary monitoring while sedated. Continue Surgical followup and Gastroenterology followup. This patient was seen and examined with Dr. Navarro. Discussed assessment and plan as described above. This patient was seen and examined with David Mcnamara, nurse practitioner. Discussed assessment and plan as described above. Thank you for this consult. We will follow with you. David Mcnamara APN Emory Navarro MD
--- NOTE | 2018-07-08 00:22 | PN ---
DATE: 07/07/2018 SUBJECTIVE: The patient is a 57-year-old male. The patient was seen and examined at bedside on 07/07/2018. Looking comfortable. No fever. No chills. No hematuria. No hematochezia. No headaches. No dizziness. No chest pain. No palpitation. PHYSICAL EXAMINATION VITAL SIGNS: Blood pressure 160/84, pulse 59, temperature 98.1, oxygen saturation 96%. HEENT: Head normocephalic and atraumatic. Eyes; PERRLA, extraocular muscles intact, conjunctivae clear. Nose patent. Mucous membrane moist. NECK: Supple. No carotid bruits. No JVD. No thyromegaly. CHEST: Bilaterally symmetrical. HEART: S1 and S2 positive. LUNGS: Clear to auscultation. ABDOMEN: Soft. Bowel sounds present. No organomegaly. EXTREMITIES: No edema. No cyanosis. NEUROLOGIC: The patient is awake and alert. Moving all four extremities. No focal deficits. MEDICATIONS: DuoNeb, Brovana, Lipitor, Pulmicort, Lovenox, morphine, nicotine, Protonix. LABORATORY DATA: reviewed old labs. ASSESSMENT AND PLAN: Mr. Hayder Lindquist is a 57-year-old male who has bilateral inguinal hernia, proximal small bowel dilatation and obstruction, history of anemia, chronic pulmonary disease, history of heavy smoking, hypertension, diverticulosis and sleep apnea syndrome. We called Pulmonary and Cardiology consult for clearance. The patient is going on surgery for Sunday. Continue use of bronchodilators as per Pulmonary. Sleep apnea precautions. Nicotine patch given for smoking. Recommending close cardiopulmonary monitoring with sedation. The patient is cleared for surgery with moderate risk. Repeat laboratories. We will follow up. Suri Petty MD ANTONIA
[2018-07-08 06:52] LABS: HEMOGLOBIN 12.2 g/dL (14.0-18.0); MEAN CELL VOLUME 93.8 fl (80.0-105.0); MEAN CORPUSCULAR HEMOGLOBIN 30.5 pg (25.0-35.0); MEAN CORPUSCULAR HGB CONC 32.5 g/dl (31.0-37.0); MEAN PLATELET VOLUME 9.7 fl (7.0-11.0); RED CELL DISTRIBUTION WIDTH 13.9 % (11.5-14.5); WHITE BLOOD COUNT 4.9 10^3/uL (4.5-11.0)
[2018-07-08 06:57] LABS: INR 0.94; PARTIAL THROMBOPLASTIN TIME 32.9 Seconds (26.9-38.3); PROTHROMBIN TIME 10.6 SECONDS (9.4-12.5)
[2018-07-08 07:10] LABS: BLOOD UREA NITROGEN 15 mg/dL (7-21); CALCIUM 8.9 mg/dL (8.4-10.5); GFR NON-AFRICAN AMERICAN > 60
[2018-07-08] MEDS: Arformoterol 15 mcg/2 ml Inh Sol IH SCH ×2 (07:18→19:34)
[2018-07-08] MEDS: Budesonide 0.5 mg/2 ml Inhal Susp UD IH SCH ×2 (07:18→19:33)
[2018-07-08] MEDS ORDERED: Midazolam 2 MG/2 ML VIAL ONE (09:04)
[2018-07-08] MEDS ORDERED: Propofol 10 mg/ml Inj (20 ML) ONE (09:04)
[2018-07-08] MEDS ORDERED: Rocuronium 10 mg/ml (5 ml) ONE ×2 (09:04→10:24)
[2018-07-08] MEDS ORDERED: Lidocaine 1% Inj (20ml) ONE (09:05)
[2018-07-08] MEDS ORDERED: Bupivacaine 0.5% 50 ML IJ ONE ×2 (09:22→11:00)
[2018-07-08] MEDS ORDERED: CeFAZolin 1 gm in NS 100ml IVPB ONE (09:45)
[2018-07-08] MEDS ORDERED: Neostigmine Methylsulfate 3mg/3ml Syringe IV ONE (11:08)
[2018-07-08] MEDS ORDERED: Glycopyrrolate 0.2 mg/ml (2ml vial) ONE (11:08)
[2018-07-08] MEDS ORDERED: Oxycodone/Acetaminophen 5/325 mg Tab PO PRN (11:50)
[2018-07-08] MEDS: HYDROmorphone 0.5 mg/0.5 ml ISec IVP PRN ×2 (11:50→12:50)
--- NOTE | 2018-07-08 11:54 | PCM.SURG1 ---
Surgeon's Initial Post Op Note - Surgeon's Notes Surgeon: Dr. Faustin Patient Safety Manager: Dr. Abreu PGY-4, Dr. Haile Type of Anesthesia: General Endo, Local Pre-Operative Diagnosis: Bilateral inguinal hernias Operative Findings: Bilateral inguinal hernias Post-Operative Diagnosis: Bilateral inguinal hernias Operation Performed: Bilateral inguinal hernia repair with mesh Specimen/Specimens Removed: none Estimated Blood Loss: EBL {In ML}: 15 Blood Products Given: N/A Drains Used: No Drains Post-Op Condition: Fair Date of Surgery/Procedure: 07/08/18 Time of Surgery/Procedure: 09:45
[2018-07-08] MEDS ORDERED: HYDROmorphone 0.5 mg/0.5 ml ISec ONE ×2 (11:57→12:55)
[2018-07-08] MEDS ORDERED: Lactated Ringer's 1,000 ML IV SCH (12:00)
--- NOTE | 2018-07-08 13:42 | PN ---
DATE: 07/08/2018 REASON FOR CONSULTATION AND FOLLOWUP: Preoperative evaluation, risk stratification for inguinal hernia surgery, status post acute obstruction, relieved, now going for elective surgery. The patient denies any chest pain, shortness of breath or palpitation. OBJECTIVE: GENERAL: Not in apparent distress. VITAL SIGNS: Temperature afebrile, heart rate 62, blood pressure 172/90. HEENT: PERRLA. Extraocular muscles intact. NECK: Supple. No carotid bruits, no thyromegaly. CHEST: Clear to auscultation. HEART: S1, S2 regular. ABDOMEN: Soft. EXTREMITIES: Clubbing and cyanosis negative. LABORATORY DATA: Blood workup as follow. WBC of 4.9, hemoglobin 12.8, hematocrit 37.5, platelet count 295. Chemistry shows sodium 130, potassium 4.2, chloride 106, carbon dioxide 26, anion gap of 10, BUN 15, creatinine 0.7. ASSESSMENT AND PLAN: A 57-year-old male with past medical history significant for alcohol abuse and tobacco abuse, admitted with incarcerated hernia. Later on, it was relieved by manual and the patient will require elective hernia surgery. The patient had a stress test on 05/03/2007 that was normal, no ischemia, ejection fraction 58%. The patient had echo 09/24/2015, less than a year ago, ejection fraction 55%, trace mitral regurgitation, trace tricuspid regurgitation, RV systolic pressure 17. The patient cleared to go for surgery, moderate risk, comorbid, no absolute contraindication. Hold Lovenox. Continue Lipitor. We will follow postoperatively and if the patient's blood pressure remains elevated, we will increase hydralazine and lisinopril. We will follow with you. Thank you Dr. Petty for providing us the opportunity in taking care of the patient, Ameena. We will follow with you. Emory Dean MD
[2018-07-08] MEDS: Pantoprazole 40 mg EC Tab PO SCH (14:06)
[2018-07-08 15:25] VITALS: O2SAT 96
--- NOTE | 2018-07-08 18:55 | PN ---
DATE: 07/08/2018 PULMONARY PROGRESS NOTE REFERRING PHYSICIAN: Suri Petty MD SUBJECTIVE: The patient is seen lying in bed. No acute distress. The patient is status post bilateral inguinal hernia repair with mesh done today. Denies any pain at this time. States that he does have occasional coughing. No shortness of breath. No headache, rhinitis, chest pain, abdominal pain, nausea, vomiting, diarrhea, leg pain, or leg swelling reported. OBJECTIVE: GENERAL: No acute distress. VITAL SIGNS: Blood pressure 135/62, pulse 66, temperature 98.1, oxygen saturation 96%. HEENT: Moist mucous membranes. Mallampati score of 4. NECK: Supple. No JVD. Short and thick. RESPIRATORY: Scattered rhonchi bilaterally. CARDIOVASCULAR: S1 and S2. ABDOMEN: Soft, nontender. Dressing to bilateral lower quadrants in place and dry. EXTREMITIES: No bilateral lower extremity edema. NEUROLOGICAL: Awake, alert and verbal. Follows commands. MEDICATIONS: Reviewed. DuoNeb 3 mL inhalation every 4 hours p.r.n., Brovana 15 mcg every 12 hours, Lipitor 10 mg at dinner, Pulmicort 0.5 mg inhalation every 12 hours, Lovenox 30 mg subcutaneous daily, hydralazine 25 mg twice a day, hydralazine 10 mg p.o. 4 times a day p.r.n. systolic blood pressure greater than 150, lisinopril 10 mg daily, Reglan 10 mg IV once p.r.n., metoprolol tartrate 25 mg twice a day, nicotine patch transdermal daily, Zofran 4 mg IV push every 6 hours p.r.n., and Percocet 5/325 mg one tablet every 4 hours p.r.n. Percocet 5/325 2 tablets every four hours p.r.n. Protonix 40 mg daily. LABORATORY DATA: Reviewed. WBC 4.9, RBC 4, hemoglobin 12.2, hematocrit 37.5, and platelets 295. PT 7.6, INR 0.94, APTT 32.9. Sodium 139, potassium 4.2, chloride 106, carbon dioxide 26, anion gap 10, BUN 15, creatinine 0.7, GFR greater than 60. Random glucose 97, calcium 8.9, phosphorus 3,8, magnesium 1.9. IMPRESSION AND PLAN: Bilateral inguinal hernia. The patient is status post bilateral inguinal hernia repair with mesh today, proximal small bowel dilatation obstruction, history of anemia, chronic obstructive pulmonary disease, hypertension, diverticulosis, obstructive sleep apnea syndrome. Pulmonary point of view; continue inhaled bronchodilators, gastric prophylaxis, deep venous thrombosis prophylaxis, head of the bed elevated at 45 degrees, sleep apnea precaution, and nicotine patch for smoking cessation. The patient reports that he has been refusing nebulizer treatment because he does not want to cough and cause pain to lower abdomen. I educated patient regarding need for bronchodilators. I educated patient regarding pain management and the nurses when he is in pain. Will order incentive spirometer for patient. Will place patient on prednisone 40 mg daily. Gastrointestinal followup. Recommend patient to have pulmonary function test as outpatient, sleep study as outpatient. This patient was seen and examined with Dr. Navarro. Discussed assessment and plan as described above. This patient was seen and examined with David Mcnamara, nurse practitioner. Discussed assessment and plan as described above. Thank you for this consult. We will follow with you. David Mcnamara APN Emory Navarro MD
[2018-07-08] MEDS: Oxycodone/Acetaminophen 5/325 mg Tab PO PRN (20:18)
[2018-07-09] MEDS: Oxycodone/Acetaminophen 5/325 mg Tab PO PRN ×3 (04:00→12:02)
[2018-07-09] MEDS: Pantoprazole 40 mg EC Tab PO SCH (05:33)
[2018-07-09 07:15] LABS: BASO # 0.02 K/mm3 (0.0-2.0); BASO % 0.3 % (0.0-3.0); EOS # 0.4 (0.0-0.7); EOS % 5.1 % (1.5-5.0); HEMOGLOBIN 11.2 g/dL (14.0-18.0); LYMPH # 1.8 (1.2-3.4); LYMPH % 26.6 % (22.0-35.0); MEAN CELL VOLUME 94.3 fl (80.0-105.0); MEAN CORPUSCULAR HEMOGLOBIN 30.3 pg (25.0-35.0); MEAN CORPUSCULAR HGB CONC 32.1 g/dl (31.0-37.0); MEAN PLATELET VOLUME 9.2 fl (7.0-11.0); MONO # 0.7 (0.1-0.6); MONO % 10.3 % (1.0-6.0); RBC 3.7 10^6/uL (3.5-6.1); RED CELL DISTRIBUTION WIDTH 14.2 % (11.5-14.5); WHITE BLOOD COUNT 6.9 10^3/uL (4.5-11.0)
[2018-07-09] MEDS: Arformoterol 15 mcg/2 ml Inh Sol IH SCH (07:25)
[2018-07-09] MEDS: Budesonide 0.5 mg/2 ml Inhal Susp UD IH SCH (07:25)
--- NOTE | 2018-07-09 07:25 | CP.PCM.PN ---
Subjective - Date & Time of Evaluation Date of Evaluation: 07/09/18 Time of Evaluation: 07:22 - Subjective Subjective: Surgery Progress Note for Dr. Faustin 57M seen and evaluated at bedside this morning. Patient complains of abdominal pain near surgery sites, given percocet overnight for pain. Tolerated diet. Ambulated multiple times last night. Patient is voiding and passing gas, but no bowel movement today. Denies f/c, n/v/d, SOB, CP, or urinary symptoms. Objective - Vital Signs/Intake and Output Vital Signs (last 24 hours): Temp Pulse Resp BP Pulse Ox 98.6 F 68 98 H 144/88 96 07/08/18 23:27 07/08/18 23:27 07/08/18 23:27 07/08/18 23:27 07/08/18 14:00 Intake and Output: 07/09/18 07/09/18 06:59 18:59 Intake Total 680 Balance 680 - Medications Medications: Current Medications Albuterol/Ipratropium (Duoneb 3 Mg/0.5 Mg (3 Ml) Ud) 3 ml IH [id number] PRN PRN Reason: Shortness of Breath Arformoterol Tartrate (Brovana) 15 mcg [facility] [id number] [facility] Last Admin: 07/08/18 19:34 Dose: Not Given Atorvastatin Calcium (Lipitor) 10 mg PO DIN [facility] Last Admin: 07/08/18 17:34 Dose: 10 mg Budesonide (Pulmicort Respules) 0.5 mg IH [id number] [facility] Last Admin: 07/08/18 19:33 Dose: Not Given Enoxaparin Sodium (Lovenox) 30 mg SC DAILY [facility]; Protocol Last Admin: 07/07/18 09:45 Dose: 30 mg Hydralazine HCl (Apresoline) 25 mg PO BID [facility] Last Admin: 07/08/18 17:35 Dose: 25 mg Hydralazine HCl (Apresoline) 10 mg PO QID PRN PRN Reason: For sBP>160 Lisinopril (Zestril) 10 mg PO DAILY [facility] Last Admin: 07/08/18 14:06 Dose: 10 mg Metoclopramide HCl (Reglan) 10 mg IV ONCE PRN PRN Reason: Nausea/Vomiting Metoprolol Tartrate (Lopressor) 25 mg PO BID [facility] Last Admin: 07/08/18 17:34 Dose: 25 mg Nicotine (Nicoderm Cq) 1 patch TD DAILY [facility] Last Admin: 07/08/18 14:05 Dose: 1 patch Ondansetron HCl (Zofran Inj) 4 mg IVP Q6H PRN PRN Reason: Nausea/Vomiting Oxycodone/Acetaminophen (Percocet 5/325 Mg Tab) 1 tab PO Q4H PRN PRN Reason: Pain, moderate (4-7) Stop: 07/11/18 11:51 Oxycodone/Acetaminophen (Percocet 5/325 Mg Tab) 2 tab PO Q4H PRN PRN Reason: Pain, severe (8-10) Stop: 07/11/18 11:51 Last Admin: 07/09/18 04:00 Dose: 2 tab Pantoprazole Sodium (Protonix Ec Tab) 40 mg PO 0600 [facility] Last Admin: 07/09/18 05:33 Dose: 40 mg Prednisone (Prednisone Tab) 40 mg PO DAILY [facility] - Labs Labs: 07/08/18 06:15 07/08/18 06:15 PT 10.6 SECONDS (9.4-12.5) 07/08/18 06:15 INR 0.94 07/08/18 06:15 APTT 32.9 Seconds (26.9-38.3) 07/08/18 06:15 - Constitutional Appears: Well, Non-toxic, No Acute Distress - Head Exam Head Exam: ATRAUMATIC, NORMAL INSPECTION, NORMOCEPHALIC - Eye Exam Eye Exam: EOMI - ENT Exam ENT Exam: Mucous Membranes Moist - Respiratory Exam Respiratory Exam: NORMAL BREATHING PATTERN. absent: Wheezes, Respiratory Dist ress - Cardiovascular Exam Cardiovascular Exam: REGULAR RHYTHM, +S1, +S2 - GI/Abdominal Exam GI & Abdominal Exam: Soft, Tenderness, Normal Bowel Sounds. absent: Distended, Firm, Guarding, Rigid, Rebound Additional comments: surgical sites (inguinal) dressed with pressure dressing bilaterally - dressings c/d/i - Extremities Exam Extremities Exam: Normal Inspection. absent: Tenderness - Neurological Exam Neurological Exam: Alert, Awake, Oriented x3 - Psychiatric Exam Psychiatric exam: Anxious - Skin Skin Exam: Dry, Intact, Normal Color, Warm Assessment and Plan - Assessment and Plan (Free Text) Assessment: 57M s/p bilateral open inguinal hernia repairs with mesh POD1 Plan: Regular diet Monitor diet tolerance Monitor bowel function Pain control and antiemetics PRN Encourage ambulation Encourage IS use DC planning Medical management per primary team Robin Haile PGY1
[2018-07-09 07:41] LABS: ALB/GLOB RATIO 1.3 (1.1-1.8); ALBUMIN 3.4 g/dL (3.0-4.8); ALT/SGPT 20 U/L (7-56); AST/SGOT 22 U/L (17-59); BLOOD UREA NITROGEN 18 mg/dL (7-21); CALCIUM 8.2 mg/dL (8.4-10.5); GFR NON-AFRICAN AMERICAN > 60
[2018-07-09 08:28] VITALS: BP 117/66; PULSE 81; RESP 20; TEMP 98.3
[2018-07-09] MEDS: Enoxaparin 30 mg Syringe SC SCH (09:12)
[2018-07-09] MEDS ORDERED: POLYETHYLENE GLYCOL 3350 17 GM/Dose PACKET PO SCH (10:00)
--- NOTE | 2018-07-09 10:24 | PN ---
DATE: 07/08/2018 SUBJECTIVE: The patient is 57 years old male. The patient was seen and examined in the bedside on 07/08/2018. He is status post surgery post bilateral inguinal hernia repair with mesh done on 07/08/2018, having pain, sometime coughing. No shortness of breath. No headache. No chest pain. No nausea, vomiting, or diarrhea. No swelling of the legs. No hematuria or hematochezia. PHYSICAL EXAMINATION: VITAL SIGNS: Blood pressure 130/60, pulse rate 66, temperature 98.1, oxygen saturation 96%. HEENT: Head is normocephalic and atraumatic. Eyes; PERRLA, extraocular muscles intact, conjunctivae clear. Nose patent. Mucous membrane moist. NECK: Supple. No carotid bruits. No JVD. No thyromegaly. CHEST: Bilaterally symmetrical. HEART: S1 and S2 positive. LUNGS: Clear to auscultation. ABDOMEN: Soft, nontender. No organomegaly. EXTREMITIES: No edema. No cyanosis. NEUROLOGIC: The patient is awake and alert. Follow simple commands. MEDICATIONS: DuoNeb, Brovana, Lipitor, Pulmicort, Lovenox, hydralazine, lisinopril, Reglan, metoprolol, nicotine patch, Zofran, and Percocet. LABORATORY DATA: White blood cell 4.9, hemoglobin 12.2, hematocrit 37.5, sodium 139, potassium 4.2, BUN 15, creatinine 0.7, calcium 8.9. ASSESSMENT AND PLAN: Mr. Hayder Lindquist is a 57-year-old male with history of chronic obstructive pulmonary disease, history of heavy smoking, status post bilateral inguinal hernia repair with mesh, proximal small bowel dilation obstruction, history of anemia, hypertension, diverticulosis, suspected sleep apnea syndrome. The patient is doing great after surgery, walking around even with pain. Gastrointestinal and deep vein thrombosis prophylaxis given. Pain medication given. Bronchodilators given. Continue present treatment. Surgical team is on the case. We will follow up. Suri Petty MD
--- NOTE | 2018-07-09 12:55 | PN ---
DATE: 07/09/2018 PULMONARY PROGRESS NOTE REFERRING PHYSICIAN: Suri Petty MD SUBJECTIVE: The patient is seen lying in bed. No acute distress. No overnight events reported. Reports that he still has occasional coughing. No headache, rhinitis, shortness of breath, chest pain, abdominal pain, nausea, vomiting, diarrhea, leg pain or leg swelling reported. The patient does stat that he has some soreness/tenderness to surgical site bilateral lower quadrants. OBJECTIVE: GENERAL: No acute distress. VITAL SIGNS: Blood pressure 117/66, pulse 81, temperature 98.3 and oxygen saturation 96% on room air. HEENT: Moist mucous membranes. Mallampati score of 4. NECK: Supple. No JVD. Short and thick. RESPIRATORY: Few scattered rhonchi bilaterally. CARDIOVASCULAR: S1 and S2. ABDOMEN: Soft and nontender. Dressing to bilateral lower quadrants in place and dry. EXTREMITIES: No bilateral lower extremity edema. NEUROLOGICAL: Awake, alert and verbal. Following commands. MEDICATIONS: Reviewed. DuoNeb 3 mL inhalation every 4 hours p.r.n., Brovana 15 mcg inhalation every 12 hours, Lipitor 10 mg at dinner, Pulmicort 0.5 mg inhalation every 12 hours, Lovenox 30 mg subcutaneous daily, hydralazine 25 mg twice a day, hydralazine 10 mg 4 times a day p.r.n. for systolic blood pressure greater than 160, lisinopril 10 mg p.o. daily, Reglan 10 mg IV one time dose p.r.n., metoprolol tartrate 25 mg twice a day, nicotine patch transdermal daily, Zofran 4 mg IV push every 6 hours p.r.n., and Percocet 5/325 mg one tablet every 4 hours p.r.n. for moderate pain, Percocet 5/325 2 tablets every 4 hours p.r.n. for severe pain, Protonix 40 mg daily, MiraLax 17 g daily and prednisone 40 mg daily. LABORATORY DATA: Reviewed. WBC 6.9, RBC 3.7, hemoglobin 11.2, hematocrit 34.9, and platelets 256. Sodium 135, potassium 4.0, chloride 103, carbon dioxide 25, anion gap 11, BUN 18, creatinine 0.8, GFR greater than 60, random glucose 111, calcium 8.2, phosphorus 3,6, magnesium 1.7, total bilirubin 0.2, AST 22, ALT 20, alkaline phosphatase 50, total protein 6.1, albumin 3.4, globulin 2.7 and albumin-globulin ratio 1.3. IMPRESSION AND PLAN: Bilateral inguinal hernia, status post bilateral inguinal hernia repair with mesh, proximal small bowel dilatation-obstruction, history of anemia, chronic obstructive pulmonary disease, hypertension, history of diverticulosis, obstructive sleep apnea syndrome suspected. Pulmonary point of view; continue inhaled bronchodilators, gastric prophylaxis, deep venous thrombosis prophylaxis, sleep apnea precaution, head of the bed elevated at 45 degrees, continue nicotine patch for smoking cessation. Continue incentive spirometer use. We recommend the patient has full pulmonary function test as outpatient to assess chronic lung disease. Recommend the patient has sleep study as outpatient for suspected sleep apnea syndrome. This patient was seen and examined with Dr. Navarro. Discussed assessment and plan as described above. This patient was seen and examined with David Mcnamara, nurse practitioner. Discussed assessment and plan as described above. Thank you for this consult and we will follow with you. David Mcnamara APN Emory Navarro MD
--- NOTE | 2018-07-09 17:17 | PN ---
DATE: 07/09/2018 REASON FOR CONSULTATION AND FOLLOWUP: Preoperative evaluation, risk stratification for inguinal hernia status post acute obstruction status post hernia surgery. SUBJECTIVE: The patient denies any chest pain, shortness of breath or palpitation. He complained of pain at the operative site. PHYSICAL EXAMINATION: VITAL SIGNS: Temperature afebrile, heart rate 81, blood pressure 117/66. HEENT: PERRLA. Extraocular muscles intact. NECK: Supple. No carotid bruits, no thyromegaly. CHEST: Clear to auscultation. HEART: S1, S2 regular. ABDOMEN: Soft. EXTREMITIES: Clubbing and cyanosis negative. LABORATORY DATA: Blood workup as follows: WBC of , hematocrit 34.9, platelet count 256. Chemistry shows sodium 135, potassium 4, chloride 103, carbon dioxide 25, anion gap of 11, BUN 18, creatinine 0.8. IMPRESSION: A 57-year-old male with past medical history significant for alcohol abuse, tobacco abuse, admitted with incarcerated hernia, later on, it was relieved. Yesterday, the patient underwent hernia surgery. Postoperative course is uneventful. Prior to that, the patient had a stress test on 05/03/2017, negative for ischemia. RECOMMENDATIONS: Continue postop management as per Surgery. Continue DVT prophylaxis, continue beta-topher, continue atorvastatin. Continue p.r.n. hydralazine. We will sign off and glad to follow up p.r.n. Thank you, Dr. Petty, for providing us the opportunity in taking care of the patient, Hayder Lindquist. Emory Dean MD
--- NOTE | 2018-07-10 03:25 | DS ---
HISTORY OF PRESENT ILLNESS: This is a 57-year-old male came in with right lower abdominal pain, nausea, and vomiting. He has past medical history of diverticulosis, hypertension, tobacco use, COPD, alcohol abuse, and sleep apnea. The patient was seen by GI, noted to have unilateral inguinal hernias, which he was referred to surgery. Surgery agreed to do hernia manipulation. The patient went into surgery yesterday 07/08/2018, saw the patient today at bedside, he is alert and oriented. He denies chest pain, shortness of breath, cough, constipation, hematochezia, or hematuria. He did have some lower abdominal groin pain, dressings were intact. No bloody drainage noted. PHYSICAL EXAMINATION: VITAL SIGNS: Temperature 98.3, pulse rate 81, blood pressure 117/56, respirations 20, and O2 sat 96% on room air. GENERAL: The patient appears to be in no acute distress. He was up ambulating in room, did have some complaints of pain. HEENT: Normocephalic. PERRLA. Mucous membranes moist. NECK: Supple. Normal inspection. RESPIRATORY: Clear to auscultation. No wheeze. No rhonchi. CARDIOVASCULAR: S1 and S2. No JVD. No murmur. No gallop. PERIPHERAL VASCULAR: No joint swelling. No cyanosis. No edema. NEUROLOGIC: The patient is alert and oriented x3. Cranial nerves II through XII intact. No focal deficits. MEDICATIONS: List was reviewed. The patient is getting Percocet two every 4 hours, surgery resident will continue that after discharge. Albuterol every 4 hours, Brovana every 12 hours, Lipitor daily, Pulmicort every 12 hours, Lovenox, Topamax daily, hydralazine 25 mg b.i.d., Zestril 10 mg, Reglan daily, Lopressor twice a day, Nicoderm patch, and Zofran injection every 4 hours. The patient taking Percocet two every 4 hours, Protonix 40 mg daily, MiraLax 17 daily, and prednisone 40 mg p.o. daily. LABORATORY DATA: White count 6.9, hemoglobin 11.2, and hematocrit 34.9. Sodium 135, potassium 4, BUN 18, creatinine 0.8, GFR over 60, and glucose today was 111. ASSESSMENT AND PLAN: This is a 57-year-old male diagnosed with bilateral inguinal hernias, manual manipulation on 07/08/2018, surgical site clean and dry. The patient is getting Percocet 5/325 two tablets every 4 hours. Discussion with resident, who will give pain medications for discharge. As far as medical, the patient will receive tramadol 50 mg once discharged for pain. The patient will continue all medications at bedside for hypertension and chronic obstructive pulmonary disease. We will follow up the patient in one week. The patient also will follow up with surgery outpatient. We will follow up. ALL ABOVE NOTED , AGREED ALL ABOVE . D/D WITH [employer] WILL F/ John Stevens APN Suri Petty MD [facility]TD[facility]
--- NOTE | 2018-07-15 08:29 | OP ---
PROCEDURE DATE: 07/08/2018 SURGEON: Eyad Faustin MD ASSISTANTS: Jyoti Abreu DO and Robin Haile DO ANESTHESIA: General with local. PREOPERATIVE DIAGNOSIS: Bilateral inguinal hernia repair. POSTOPERATIVE DIAGNOSIS: Bilateral inguinal hernia repair. ESTIMATED BLOOD LOSS: 15 mL. DRAINS: There were no drains. COMPLICATIONS: None. INDICATIONS: This is a 57-year-old male with symptomatic bilateral inguinal hernias. The patient had a large right reducible inguinal hernia and a small reducible left inguinal hernia. The patient previously had an open left inguinal hernia repair and had now developed a recurrence. DESCRIPTION OF PROCEDURE: The patient was taken to the operating room. A timeout was completed verifying correct patient, procedure, site, positioning, and mesh. General anesthesia was induced. Bilateral groins were prepped and draped in the usual sterile fashion. Ancef was given prior to incision. Marcaine 0.5% was infiltrated at the incision site and incision was marked to the natural skin crease between the ASIS and the pubic tubercle. The skin crease incision was made with a knife and deepened to the Doron's and Camper's fascia with electrocautery until the aponeurosis of the external oblique was encountered. This was cleaned and the external ring was exposed. Hemostasis was achieved in the wound. An incision was made in the mid portion of the external oblique aponeurosis in the direction of the fibers. Flaps in the external oblique were developed cephalad and inferiorly. The cord was identified. It was gently dissected free at the pubic tubercle and encircled with a [place] drain. Attention was directed to the anteromedial aspect of the cord where an indirect hernia sac was identified. The sac was carefully dissected free off the cord down to the level of the inguinal ring. The vas and testicular vessels were identified and protected from harm. The sac and its contents were reduced. A finger was passed into the peritoneal cavity and the floor of the inguinal canal was assessed and found to be strong. Attention was then turned to the floor of the canal. A large mesh plot was placed on the right and a medium mesh plot was placed on the left. It was sutured in placed with the mattress Prolene suture, then a Polypropylene mesh with an oval medial portion and a longitudinal lateral opening was placed. Beginning at the pubic tubercle, the mesh was sutured to the inguinal ligament inferiorly and then conjoined tendon superiorly using 2-0 Vicryl sutures. Care was taken to assure that the mesh was placed in a relaxed fashion to avoid excessive tension and no neurovascular structures were ____ repaired. Laterally, the tails of the mesh were crossed and the internal ring was re-created. Hemostasis was again checked. The [place] drain was removed. The external oblique aponeurosis was closed with a running suture of 3-0 Vicryl taking care not to catch the ilioinguinal nerve in the suture line. Doron's fascia was closed with interrupted 3-0 Vicryl. The skin was closed with subcuticular stitch of 4-0 Monocryl. Additional Marcaine was infiltrated and a dressing was applied. This procedure was repeated on the left side and plug was used. No patch was inserted. The testes were gently pulled down into its anatomical position in the scrotum. The patient tolerated the procedure well and was taken to PACU in stable condition. Jyoti Abreu DO Eyad Faustin MD
== END 2018-07-09 14:42 | disposition home or self-care (01) | DRG 351 ==
LOC: ED 08:53 → ERH 13:06 → 5RNO 15:59
PROVIDERS: ADMIT Internal Medicine; ATTEND Internal Medicine
PROC: 0YUA0JZ Supplement Bilateral Inguinal Region with Synthetic Substitute, Open Approach (ICD-10-PCS; principal; 2018-07-08 09:00)
DX: K40.01 Bilateral inguinal hernia, with obstruction, without gangrene, recurrent (principal); K92.1 Melena; I12.9 Hypertensive chronic kidney disease with stage 1 through stage 4 chronic kidney disease, or unspecified chronic kidney disease; N18.9 Chronic kidney disease, unspecified; J44.9 Chronic obstructive pulmonary disease, unspecified; E78.00 Pure hypercholesterolemia, unspecified; G47.33 Obstructive sleep apnea (adult) (pediatric); K57.30 Diverticulosis of large intestine without perforation or abscess without bleeding; F10.10 Alcohol abuse, uncomplicated; F17.210 Nicotine dependence, cigarettes, uncomplicated; Z85.828 Personal history of other malignant neoplasm of skin; Z86.73 Personal history of transient ischemic attack (TIA), and cerebral infarction without residual deficits